=== PATIENT | female | born 1975 | race Caucasian/White ===

== ENCOUNTER 2018-02-23 19:44 | Inpatient (IN) | payer SELFPAY, BC ==
[2018-02-23] MEDS: MORPHINE 4 MG/ML 1ML VIAL/SYRINGE (J2270) IV (21:31)
[2018-02-23] MEDS: PANTOPRAZOLE 40MG INJ (PROTONIX) (C9113) IV (21:31)
[2018-02-23] MEDS: MULTIVITAMIN -ADULT INJECTION 10 ML, THIAMINE INJection 100 MG, FOLIC ACID 1 MG in NS 1... IV (22:05)
[2018-02-23 22:11] LABS: BASO # 0.1 10^3/uL (0.0-0.2); BASO % 0.6 % (0.0-1.0); EOS # 0.1 10^3/uL (0.0-0.50); EOS % 0.5 % (0.0-3.0); HEMATOCRIT 40.1 % (36.0-47.0); HEMOGLOBIN 14.6 g/dl (12.0-15.5); IMMATURE GRANULOCYTE % 0.6 % (0-3.0); LYMPH # 1.5 10^3/uL (1.5-4.5); LYMPH % 13.6 % (24.0-44.0); MEAN CORPUSCULAR HEMOGLOBIN 31.4 pg (27.0-33.0); MEAN CORPUSCULAR HGB CONC 36.4 g/dl (32.0-36.5); MEAN CORPUSCULAR VOLUME 86.2 fl (80.0-96.0); MONO # 1.4 10^3/uL (0.0-0.8); MONO % 12.2 % (0.0-5.0); NEUTROPHILS % 72.5 % (36.0-66.0); PLATELET COUNT, AUTOMATED 167 10^3/uL (150-450); RED BLOOD COUNT 4.65 10^6/uL (4.00-5.40); RED CELL DISTRIBUTION WIDTH 11.5 % (11.5-14.5); WHITE BLOOD COUNT 11.1 10^3/uL (4.0-10.0)
[2018-02-23 22:42] LABS: AMMONIA 42 uMOL/L (<32)
[2018-02-23 22:46] LABS: ALBUMIN 3.7 GM/DL (3.2-5.2); ALBUMIN/GLOBULIN RATIO 1.16 (1.00-1.93); ALKALINE PHOSPHATASE 156 U/L (45-117); ALT/SGPT 183 U/L (12-78); ANION GAP 24 MEQ/L (8-16); AST/SGOT 249 U/L (7-37); BILIRUBIN,DIRECT 1.3 MG/DL (0.0-0.2); BILIRUBIN,TOTAL 2.5 MG/DL (0.2-1.0); BLOOD UREA NITROGEN 27 MG/DL (7-18); CALCIUM LEVEL 8.6 MG/DL (8.5-10.1); CARBON DIOXIDE LEVEL 19 MEQ/L (21-32); CHLORIDE LEVEL 83 MEQ/L (98-107); CREATININE FOR GFR 1.24 MG/DL (0.55-1.30); ETHYL ALCOHOL (ETHANOL) 0.013 % (0.000-0.010); GLOMERULAR FILTRATION RATE 50.3 (>58); GLUCOSE, FASTING 112 MG/DL (70-100); LIPASE 4681 U/L (73-393); POTASSIUM SERUM 2.3 MEQ/L (3.5-5.1); SODIUM LEVEL 126 MEQ/L (136-145); TOTAL PROTEIN 6.9 GM/DL (6.4-8.2)
[2018-02-23] MEDS: POTASSIUM CHLORIDE 10 MEQ SR TABLET PO (23:16)
[2018-02-23] MEDS: MORPHINE 10 MG/ML 1ML VIAL (J2270) IV (23:16)
[2018-02-24] MEDS ORDERED: LORazepam 2 MG TAB PO (01:00)
[2018-02-24] MEDS ORDERED: NS 1,000 ML IV (01:00)
[2018-02-24] MEDS ORDERED: ONDANSETRON 4MG/2ML VIAL (J2405) IV (01:00)
[2018-02-24] MEDS: KCL 10MEQ/100ML SWI (KRUN) 10 MEQ in APPROPRIATE DILUENT 1 EA IV ×2 (01:13→02:26)
[2018-02-24] MEDS: POTASSIUM CHLORIDE 10 MEQ SR TABLET PO ×2 (01:21→02:56)
[2018-02-24] MEDS ORDERED: POTASSIUM CHLORIDE 10 MEQ SR TABLET PO (02:00)
[2018-02-24 02:03] LABS: LACTIC ACID SEPSIS PROTOCOL 0.9 MMOL/L (0.4-2.0)
[2018-02-24] MEDS: NS 1,500 ML IV (03:27)
[2018-02-24] MEDS: MORPHINE 4 MG/ML 1ML VIAL/SYRINGE (J2270) IV ×4 (03:28→21:30)
[2018-02-24 07:00] LABS: HEMATOCRIT 38.6 % (36.0-47.0); MEAN CORPUSCULAR HEMOGLOBIN 31.7 pg (27.0-33.0); MEAN CORPUSCULAR HGB CONC 36.3 g/dl (32.0-36.5); MEAN CORPUSCULAR VOLUME 87.3 fl (80.0-96.0); PLATELET COUNT, AUTOMATED 173 10^3/uL (150-450); RED BLOOD COUNT 4.42 10^6/uL (4.00-5.40); RED CELL DISTRIBUTION WIDTH 11.8 % (11.5-14.5); WHITE BLOOD COUNT 11.7 10^3/uL (4.0-10.0)
[2018-02-24 07:22] LABS: ALBUMIN 3.5 GM/DL (3.2-5.2); ALBUMIN/GLOBULIN RATIO 1.06 (1.00-1.93); ALKALINE PHOSPHATASE 138 U/L (45-117); ALT/SGPT 155 U/L (12-78); ANION GAP 12 MEQ/L (8-16); AST/SGOT 193 U/L (7-37); BILIRUBIN,TOTAL 2.4 MG/DL (0.2-1.0); BLOOD UREA NITROGEN 24 MG/DL (7-18); CALCIUM LEVEL 8.1 MG/DL (8.5-10.1); CARBON DIOXIDE LEVEL 24 MEQ/L (21-32); CHLORIDE LEVEL 92 MEQ/L (98-107); CHOLESTEROL LEVEL 168 MG/DL (<200); CHOLESTEROL RISK RATIO 2.545 (<5); CREATININE FOR GFR 1.16 MG/DL (0.55-1.30); GLOMERULAR FILTRATION RATE 54.3 (>58); GLUCOSE, FASTING 96 MG/DL (70-100); HDL CHOLESTEROL 66 MG/DL (>40); LDL CHOLESTEROL 88.4 MG/DL (<100); MAGNESIUM LEVEL 1.8 MG/DL (1.8-2.4); NON-HDL-C 102 MG/DL; PHOSPHORUS LEVEL 2.4 MG/DL (2.5-4.9); POTASSIUM SERUM 4.3 MEQ/L (3.5-5.1); SODIUM LEVEL 128 MEQ/L (136-145); TOTAL PROTEIN 6.8 GM/DL (6.4-8.2); TRIGLYCERIDES LEVEL 68 MG/DL (<150)
[2018-02-24] MEDS ORDERED: FOLIC ACID 1 MG TAB PO (09:00)
[2018-02-24] MEDS ORDERED: THIAMINE 100 MG TAB PO (09:00)
[2018-02-24] MEDS ORDERED: NADOLOL 20MG TABLET PO (09:00)
[2018-02-24] MEDS: PANTOPRAZOLE 40MG TAB (PROTONIX) PO (09:37)
[2018-02-24] MEDS: hydrOXYzine 25 MG TAB PO (09:37)
[2018-02-24] MEDS: MULTIVITAMIN -ADULT INJECTION 10 ML, THIAMINE INJection 100 MG, FOLIC ACID 1 MG in NS 1... IV (10:54)
[2018-02-24 16:47] LABS: ALBUMIN 3.6 GM/DL (3.2-5.2); ALBUMIN/GLOBULIN RATIO 1.29 (1.00-1.93); ALKALINE PHOSPHATASE 137 U/L (45-117); ALT/SGPT 144 U/L (12-78); ANION GAP 14 MEQ/L (8-16); AST/SGOT 175 U/L (7-37); BILIRUBIN,TOTAL 2.3 MG/DL (0.2-1.0); BLOOD UREA NITROGEN 21 MG/DL (7-18); CALCIUM LEVEL 8.4 MG/DL (8.5-10.1); CARBON DIOXIDE LEVEL 23 MEQ/L (21-32); CHLORIDE LEVEL 95 MEQ/L (98-107); GLOMERULAR FILTRATION RATE > 60.0 (>58); GLUCOSE, FASTING 95 MG/DL (70-100); POTASSIUM SERUM 3.9 MEQ/L (3.5-5.1); SODIUM LEVEL 132 MEQ/L (136-145); TOTAL PROTEIN 6.4 GM/DL (6.4-8.2)
[2018-02-24] MEDS: BISACODYL 5 MG TAB PO (18:13)
[2018-02-24 23:23] LABS: ALBUMIN 3.1 GM/DL (3.2-5.2); ALBUMIN/GLOBULIN RATIO 0.97 (1.00-1.93); ALKALINE PHOSPHATASE 139 U/L (45-117); ALT/SGPT 127 U/L (12-78); ANION GAP 13 MEQ/L (8-16); AST/SGOT 160 U/L (7-37); BILIRUBIN,TOTAL 2.1 MG/DL (0.2-1.0); BLOOD UREA NITROGEN 17 MG/DL (7-18); CARBON DIOXIDE LEVEL 20 MEQ/L (21-32); CHLORIDE LEVEL 98 MEQ/L (98-107); CREATININE FOR GFR 0.91 MG/DL (0.55-1.30); GLOMERULAR FILTRATION RATE > 60.0 (>58); GLUCOSE, FASTING 125 MG/DL (70-100); POTASSIUM SERUM 3.3 MEQ/L (3.5-5.1); SODIUM LEVEL 131 MEQ/L (136-145); TOTAL PROTEIN 6.3 GM/DL (6.4-8.2)
[2018-02-25 05:10] LABS: HEMATOCRIT 35.3 % (36.0-47.0); HEMOGLOBIN 12.3 g/dl (12.0-15.5); MEAN CORPUSCULAR HEMOGLOBIN 30.9 pg (27.0-33.0); MEAN CORPUSCULAR HGB CONC 34.8 g/dl (32.0-36.5); MEAN CORPUSCULAR VOLUME 88.7 fl (80.0-96.0); RED BLOOD COUNT 3.98 10^6/uL (4.00-5.40); RED CELL DISTRIBUTION WIDTH 11.7 % (11.5-14.5); WHITE BLOOD COUNT 7.4 10^3/uL (4.0-10.0)
[2018-02-25 05:24] LABS: ALBUMIN 3.2 GM/DL (3.2-5.2); ALKALINE PHOSPHATASE 128 U/L (45-117); ALT/SGPT 118 U/L (12-78); ANION GAP 9 MEQ/L (8-16); AST/SGOT 133 U/L (7-37); BILIRUBIN,TOTAL 1.9 MG/DL (0.2-1.0); BLOOD UREA NITROGEN 15 MG/DL (7-18); CALCIUM LEVEL 8.2 MG/DL (8.5-10.1); CARBON DIOXIDE LEVEL 26 MEQ/L (21-32); CHLORIDE LEVEL 97 MEQ/L (98-107); CREATININE FOR GFR 0.86 MG/DL (0.55-1.30); GLOMERULAR FILTRATION RATE > 60.0 (>58); GLUCOSE, FASTING 96 MG/DL (70-100); SODIUM LEVEL 132 MEQ/L (136-145); TOTAL PROTEIN 6.1 GM/DL (6.4-8.2)
[2018-02-25 06:00] LABS: IMMATURE PLATELET FRACTION % 3.2 % (0.0-9.6); PLATELET COUNT, AUTOMATED 77 10^3/uL (150-450)
[2018-02-25 07:21] LABS: INR 1.17; PROTHROMBIN TIME 15.1 SECONDS (12.1-14.4)
[2018-02-25] MEDS: MULTIVITAMINS/MINERALS THERAP 1 TAB PO (10:10)
[2018-02-25] MEDS: PANTOPRAZOLE 40MG TAB (PROTONIX) PO (10:10)
[2018-02-25] MEDS: hydrOXYzine 25 MG TAB PO (10:10)
== END 2018-02-25 12:29 | disposition home or self-care (01) | DRG 282 ==
LOC: M ED INP 02-24 00:59 → M PCU 02-24 00:59 → M ED 19:44
DX: K85.20 Alcohol induced acute pancreatitis without necrosis or infection (principal); F41.9 Anxiety disorder, unspecified; F10.10 Alcohol abuse, uncomplicated; K21.9 Gastro-esophageal reflux disease without esophagitis; Z79.899 Other long term (current) drug therapy

== ENCOUNTER 2018-04-10 20:37 | Emergency (ER) | payer SELFPAY ==
[2018-04-10] MEDS: MORPHINE 2 MG/ML 1ML SYRINGE (J2270) IV (22:40)
[2018-04-10] MEDS: NS 500 ML IV (22:40)
[2018-04-10] MEDS: ONDANSETRON 4MG/2ML VIAL (J2405) IV (22:40)
[2018-04-10 23:02] LABS: BASO # 0.1 10^3/uL (0.0-0.2); BASO % 0.7 % (0.0-1.0); EOS # 0.1 10^3/uL (0.0-0.50); EOS % 1.2 % (0.0-3.0); HEMATOCRIT 33.7 % (36.0-47.0); HEMOGLOBIN 11.6 g/dl (12.0-15.5); IMMATURE GRANULOCYTE % 0.4 % (0-3.0); LYMPH # 1.9 10^3/uL (1.5-4.5); LYMPH % 21.8 % (24.0-44.0); MEAN CORPUSCULAR HEMOGLOBIN 31.6 pg (27.0-33.0); MEAN CORPUSCULAR HGB CONC 34.4 g/dl (32.0-36.5); MEAN CORPUSCULAR VOLUME 91.8 fl (80.0-96.0); MONO # 0.6 10^3/uL (0.0-0.8); MONO % 6.8 % (0.0-5.0); NEUTROPHILS # 5.9 10^3/uL (1.8-7.7); NEUTROPHILS % 69.1 % (36.0-66.0); PLATELET COUNT, AUTOMATED 107 10^3/uL (150-450); RED BLOOD COUNT 3.67 10^6/uL (4.00-5.40); RED CELL DISTRIBUTION WIDTH 13.4 % (11.5-14.5); WHITE BLOOD COUNT 8.5 10^3/uL (4.0-10.0)
[2018-04-10 23:22] LABS: PROTHROMBIN TIME 14.4 SECONDS (12.1-14.4)
[2018-04-10 23:23] LABS: PARTIAL THROMBOPLASTIN TIME 32.1 SECONDS (25.4-37.6)
[2018-04-10 23:27] LABS: CONTROL LINE HCG INT CTR LINE PRESENT; HCG, SERUM QUALITATIVE NEGATIVE (NEGATIVE)
[2018-04-10 23:30] LABS: LACTIC ACID SEPSIS PROTOCOL 3.7 MMOL/L (0.4-2.0)
[2018-04-10 23:30] LABS: ALBUMIN 3.2 GM/DL (3.2-5.2); ALBUMIN/GLOBULIN RATIO 0.91 (1.00-1.93); ALKALINE PHOSPHATASE 143 U/L (45-117); ALT/SGPT 98 U/L (12-78); ANION GAP 15 MEQ/L (8-16); AST/SGOT 216 U/L (7-37); BILIRUBIN,DIRECT 0.9 MG/DL (0.0-0.2); BILIRUBIN,TOTAL 1.3 MG/DL (0.2-1.0); BLOOD UREA NITROGEN 8 MG/DL (7-18); CARBON DIOXIDE LEVEL 26 MEQ/L (21-32); CHLORIDE LEVEL 103 MEQ/L (98-107); CPK CREATINE PHOSPHOKINASE 231 U/L (26-192); CREATININE FOR GFR 0.64 MG/DL (0.55-1.30); ETHYL ALCOHOL (ETHANOL) 0.252 % (0.000-0.010); GLOMERULAR FILTRATION RATE > 60.0 (>58); GLUCOSE, FASTING 92 MG/DL (70-100); LIPASE 83 U/L (73-393); MB/CK RELATIVE INDEX 0.78 (< OR =4); POTASSIUM SERUM 2.5 MEQ/L (3.5-5.1); SODIUM LEVEL 144 MEQ/L (136-145); TOTAL PROTEIN 6.7 GM/DL (6.4-8.2); TROPONIN I < 0.02 NG/ML (< 0.10)
[2018-04-10 23:48] LABS: MAGNESIUM LEVEL 1.6 MG/DL (1.8-2.4)
[2018-04-11] MEDS: POTASSIUM CHLORIDE 10 MEQ SR TABLET PO (00:18)
[2018-04-11] MEDS: MAG SULF 1GM/100ML (MAG RUN) 1 GM in APPROPRIATE DILUENT 1 EA IV (00:19)
[2018-04-11 01:04] LABS: AMPHETAMINES LEVEL URINE NEGATIVE (NEGATIVE); BARBITURATES URINE NEGATIVE (NEGATIVE); BENZODIAZEPINES URINE NEGATIVE (NEGATIVE); CANNABINOIDS URINE NEGATIVE (NEGATIVE); COCAINE METABOLITE URINE NEGATIVE (NEGATIVE); METHADONE URINE NEGATIVE (NEGATIVE); OPIATES URINE POSITIVE (NEGATIVE); PHENCYCLIDINE URINE NEGATIVE (NEGATIVE)
[2018-04-11] MEDS: POTASSIUM CHLORIDE 10% LIQ 20 MEQ/15 ML UDC PO (01:07)
[2018-04-11] MEDS: PROMETHAZINE INJ 25 MG/ML VIAL (J2550) IV (01:39)
== END 2018-04-11 02:25 | disposition home or self-care (01) ==
LOC: M ED 20:37
DX: F10.120 Alcohol abuse with intoxication, uncomplicated (principal); K70.10 Alcoholic hepatitis without ascites; S20.212A Contusion of left front wall of thorax, initial encounter; W54.1XXA Struck by dog, initial encounter; Y92.098 Other place in other non-institutional residence as the place of occurrence of the external cause; K70.30 Alcoholic cirrhosis of liver without ascites; I85.10 Secondary esophageal varices without bleeding; Z88.6 Allergy status to analgesic agent; Z79.899 Other long term (current) drug therapy
CPT/HCPCS: J2405

== ENCOUNTER 2018-12-16 15:13 | Inpatient (IN) | payer BC, SELFPAY ==
[~2018-12-16] VITALS: Ht 157.5 cm; Wt 58.6 kg
[~2018-12-16 15:13] MED LIST: FOLI1TAB11 PO; FURO40TA2 PO; HYDR-3363 PO; KLOR20TA42 PO; MULT1TAB18 PO; NADO20TA PO; OXYC15TA76 PO; PANT40TA3 PO; PROM25TA12 PO; SPIR100T3 PO; THIA100TA PO; XANA0.25 PO; ZOFR4TAB14 PO
[2018-12-16] MEDS ORDERED: DULC5TAB PO (15:55)
[2018-12-16] MEDS ORDERED: SERT25TA88 PO (15:55)
[2018-12-16 16:38] LABS: HEMATOCRIT 32.4 % (36.0-47.0); HEMOGLOBIN 12.1 g/dl (12.0-15.5); MEAN CORPUSCULAR HEMOGLOBIN 33.9 pg (27.0-33.0); MEAN CORPUSCULAR VOLUME 90.8 fl (80.0-96.0); PLATELET COUNT, AUTOMATED 120 10^3/uL (150-450); RED BLOOD COUNT 3.57 10^6/uL (4.00-5.40); WHITE BLOOD COUNT 7.5 10^3/uL (4.0-10.0)
[2018-12-16] MEDS ORDERED: FOLIC ACID IV ONE ×5 (16:45)
[2018-12-16] MEDS ORDERED: THIAMINE IV ONE ×5 (16:45)
[2018-12-16] MEDS ORDERED: MULTIVITAMIN ADULT IV ONE ×5 (16:45)
[2018-12-16] MEDS ORDERED: [UNRECOGNIZED DRUG - OTHER] IV ONE ×5 (16:45)
[2018-12-16 16:57] LABS: INR 1.53; PROTHROMBIN TIME 18.1 SECONDS (11.8-14.0)
[2018-12-16 16:58] LABS: PARTIAL THROMBOPLASTIN TIME 35.4 SECONDS (25.0-38.4)
[2018-12-16 17:09] LABS: AMPHETAMINES LEVEL URINE NEGATIVE (NEGATIVE); BARBITURATES URINE NEGATIVE (NEGATIVE); BENZODIAZEPINES URINE NEGATIVE (NEGATIVE); CANNABINOIDS URINE NEGATIVE (NEGATIVE); COCAINE METABOLITE URINE NEGATIVE (NEGATIVE); METHADONE URINE NEGATIVE (NEGATIVE); OPIATES URINE NEGATIVE (NEGATIVE); PHENCYCLIDINE URINE NEGATIVE (NEGATIVE)
[2018-12-16 17:10] LABS: HCG, SERUM QUALITATIVE NEGATIVE (NEGATIVE)
[2018-12-16 17:22] LABS: ACETAMINOPHEN LEVEL < 2.0 UG/ML (10.0-30.0); ALT/SGPT 76 U/L (12-78); BILIRUBIN,DIRECT 12.4 MG/DL (0.0-0.2); BILIRUBIN,TOTAL 16.7 MG/DL (0.2-1.0); BLOOD UREA NITROGEN 11 MG/DL (7-18); CALCIUM LEVEL 8.8 MG/DL (8.5-10.1); CARBON DIOXIDE LEVEL 26 MEQ/L (21-32); CHLORIDE LEVEL 90 MEQ/L (98-107); CREATININE FOR GFR 1.03 MG/DL (0.55-1.30); ETHYL ALCOHOL (ETHANOL) 0.003 % (0.000-0.010); GLOMERULAR FILTRATION RATE > 60.0 (>58); GLUCOSE, FASTING 195 MG/DL (70-100); LIPASE 860 U/L (73-393); POTASSIUM SERUM 1.8 MEQ/L (3.5-5.1); SALICYLATE LEVEL < 1.7 MG/DL (5.0-30.0); SODIUM LEVEL 129 MEQ/L (136-145)
[2018-12-16 17:26] LABS: MEAN CORPUSCULAR HGB CONC 37.3 g/dl (32.0-36.5)
[2018-12-16] MEDS ORDERED: POTASSIUM CHLORIDE 10% LIQ 20 MEQ/15 ML UDC PO ONE ×2 (17:30→22:00)
[2018-12-16] MEDS ORDERED: KCL 10MEQ/100ML SWI (KRUN) 10 MEQ in APPROPRIATE DILUENT 1 EA IV ONE (17:30)
[2018-12-16] MEDS ORDERED: POTA10PO PO (17:54)
[2018-12-16] MEDS ORDERED: FURO20TA2 PO (17:54)
[2018-12-16] MEDS ORDERED: HYDR1CAP25 PO (17:54)
[2018-12-16] MEDS ORDERED: FLON1SPR (17:54)
[2018-12-16] MEDS ORDERED: LACTULOSE 20 GM/30 ML SYRUP UD PO ONE (18:30)
--- NOTE | 2018-12-16 19:17 | REP ---
Portable chest, 06:59 p.m., single AP view with the patient upright: Comparison is 04/10/2018. The lung gillette are clear. The cardiac size is normal. The maribeth, mediastinum, and skeletal structures are unremarkable. Impression: Negative portable chest. Electronically Signed by Marvin Greene MD 12/16/2018 07:09 P
[2018-12-16] MEDS ORDERED: FLUTICASONE PROP 0.05% NASAL SPRAY 16 GM (FLONASE) PRN (19:45)
[2018-12-16] MEDS ORDERED: ALPRAZolam 0.25 MG TAB PO PRN (19:45)
[2018-12-16] MEDS ORDERED: BISACODYL 5 MG TAB PO PRN (19:45)
[2018-12-16] MEDS ORDERED: LACTULOSE 20 GM/30 ML SYRUP UD PR ONE (19:45)
[2018-12-16] MEDS: NS 1,000 ML IV SCH (19:53)
[2018-12-16 20:12] LABS: MAGNESIUM LEVEL 1.6 MG/DL (1.8-2.4)
--- NOTE | 2018-12-16 20:16 | HPEPDOC ---
[facility] Medical History & Physical Date of Admission Dec 16, 2018 Date of Service: Dec 16, 2018 History and Physical PCP: Ameena provider CHIEF COMPLAINT: Change in mentation HISTORY OF PRESENT ILLNESS: Patient is a 43-year-old female with known history of alcohol abuse she has been attempting to wean herself from alcohol over the last several days but was becoming confused and was brought into the emergency room by family secondary to the concern for her confusion. At the time of my exam the patient is awake she is oriented to person sheis in the hospital she can tell me the day of the week the month but not the year. She is quite slow to respond and unable to provide much of the history and as such much of it is obtained from the ER provider reviewed the medical record in addition to speaking directly with the patient. Patient denies any pain but does complain of feeling groggy weak and tired. She doesn't her last drink was yesterday. She doesn't she drinks one bottle of alcohol per day vodka.. Otherwise patient denies weight loss, hair loss, headache, visual changes, chest pain, shortness of breath, cough, nausea, vomiting, diarrhea, abdominal pain, muscle aches, worsening arthritis, change in mood PAST MEDICAL HISTORY: 1. Alcoholic liver cirrhosis. 2. Gastroesophageal reflux disease. 3. Hypertension 4. Esophageal varices 5. Anxiety. HOME MEDICATIONS: Please see below. ALLERGIES: Please see below PAST SURGICAL HISTORY: 1. Tummy tuck. 2. breast implants. SOCIAL HISTORY: Lives with: Unable to inform me, Employment: That he currently working, Tobacco use: Denies. ETOH: Long history of alcohol abuse has reportedly been clean for many years at some points but recently did fall off the wan once again, Illicit drug use: Denies, Tattoos done unprofessionally: Denies, CODE STATUS: Full code FAMILY HISTORY:Reviewed and noncontributory REVIEW OF SYSTEMS: 10 systems reviewed and negative other than HPI PHYSICAL EXAMINATION: VITAL SIGNS: Temperature 99.6, pulse 90, respiratory rate 18, blood pressure 115/70, pulse oximetry 97% on room air. GENERAL: Fatigued middle-age female lying flat in a stretcher visibly jaundiced slow to respond awake but stutters answers no acute distress HEENT: Dry mucous membranes no elevation and CVP, obvious scleral icterus CARDIOVASCULAR: S1 S2 regular no additional heart sounds appreciated. RESPIRATORY: Clear to auscultation bilaterally. ABDOMINAL: Bowel sounds present abdomen soft and [place] present EXTREMITIES: No clubbing cyanosis or edema, clear asterixis NEUROLOGICAL: Spontaneously moves all 4 extremities cranial 2 through 12 grossly intact no gross focal deficits appreciated PSYCHOLOGICAL: Flat affect, psychomotor retardation LABORATORY DATA: See below. MICROBIOLOGY: Please see below. IMAGING: Chest x-ray:Negative portable chest. ASSESSMENT & PLAN: This is a 43-year-old female with hepatic encephalopathy in the setting of alcoholic liver cirrhosis. PROBLEMS: 1. Acute hepatic encephalopathy: Patient is slow fatigued and appears encephalopathic was clear asterixis and an elevated ammonia level in the setting of acute on chronic liver failure. I'll provide her with a lactulose enema 1 now we'll begin her on by mouth lactulose every 6 hours titrate for 4-5 bowel movements per day. Monitor mental status closely in the progressive care unit with every 4 neuro checks. 2. Alcoholic liver cirrhosis: Meld score 27 indicating 19.6% 3 month mortality, function 42-1/2 months his prognosis indicating poor. I will start her on prednisone 40 mg daily for 28 day course, continued on atenolol with holding parameters lactulose as outlined above. Spironolactone with holding parameter. We will hold her Lasix given to her hypokalemia and hyponatremia and dry mucous membranes. Was previously on transfer list not a candidate secondary to active alcohol abuse 3. Alcohol abuse: She is on when necessary Xanax which we'll continue with the hold for sedation as well as hydroxyzine we have placed the same parameter. W e'll begin her on folate and thiamine and multivitamin by mouth and is ordered her for [place] protocol. Monitor for withdrawal symptoms. Not a candidate for any transportation secondary to active alcohol use. As 4. Hypokalemia: Likely secondary to dehydration given her hypochloremia hyponatremia as well. Provided with gentle IV fluids check a magnesium level supplement potassium and magnesium as needed especially for providing her with aggressive lactulose therapy for hepatic encephalopathy. We'll check every 6 hours BMPs 5. Thrombocytopenia: Secondary to alcoholic liver cirrhosis 6. Elevated INR: Secondary to alcoholic liver cirrhosis 7. Gastroesophageal reflux disease: Continue with PPI 8. Anxiety: Continue with Xanax and hydroxyzine as needed as well as sertraline 9. Elevated lipase: Likely false-positive no signs or symptoms of acute pancreatitis no abdominal pain no nausea no vomiting her clinical history and physical exam are not suggestive of this. DVT PROPHYLAXIS: Heparin DISPOSITION: Progressive care unit admission prognosis is poor, consider advanced directives discussions with patient more awake and able to pancreatitis. Better and discussion Vital Signs Vital Signs Date Time Temp Pulse Resp B/P (MAP) Pulse Ox O2 Delivery O2 Flow Rate FiO2 12/16/18 19:30 83 16 107/63 (78) 99 Room Air 12/16/18 15:14 99.6 Laboratory Data Labs 24H Laboratory Tests 2 12/16/18 16:13: Urine Amphetamines Screen NEGATIVE, Urine Benzodiazepines Screen NEGATIVE, Urine Opiates Screen NEGATIVE, Urine Methadone Screen NEGATIVE, Urine Barbiturates Screen NEGATIVE, Urine Phencyclidine Screen NEGATIVE, Urine Cocaine Metabolite Screen NEGATIVE, Urine Cannabinoids Screen NEGATIVE 12/16/18 16:26: Nucleated Red Blood Cells % (auto) 0.0, Prothrombin Time 18.1H, Prothromb Time International Ratio 1.53, Activated Partial Thromboplast Time 35.4, Anion Gap 13, Glomerular Filtration Rate > 60.0, Calcium Level 8.8, Aspartate Amino Transf (AST/SGOT) 220H, Alanine Aminotransferase (ALT/SGPT) 76, Alkaline Phosphatase 246H, Total Bilirubin 16.7*H, Direct Bilirubin 12.4H, Ammonia 170H, Total Protein 7.0, Albumin 3.0L, Albumin/Globulin Ratio 0.75L, Lipase 860H, Thyroid Stimulating Hormone (TSH) 1.220, Human Chorionic Gonadotropin, Qual NEGATIVE, Salicylates Level < 1.7L, Acetaminophen Level < 2.0L, Ethyl Alcohol Level 0.003 CBC/BMP Laboratory Tests 12/16/18 16:26 Red Blood Count 3.57 L, Mean Corpuscular Volume 90.8, Mean Corpuscular Hemoglobin 33.9 H, Mean Corpuscular Hemoglobin Concent 37.3 H, Red Cell Distribution Width 15.6 H Home Medications Scheduled Furosemide (Furosemide) 20 Mg Tablet, 20 MG PO TID Hydroxyzine Pamoate (Hydroxyzine Pamoate) 25 Mg Capsule, 25 MG PO QHS Nadolol (Nadolol) 20 Mg Tab, 20 MG PO DAILY Pantoprazole Sodium (Pantoprazole Sodium) 40 Mg Tab, 40 MG PO DAILY Potassium Chloride (Potassium Chloride Powder) 20 Meq Packet, 20 MEQ PO DAILY Sertraline HCl (Sertraline HCl) 25 Mg Tablet, 25 MG PO DAILY Spironolactone (Spironolactone) 100 Mg Tab, 100 MG PO BID Scheduled PRN Alprazolam (Xanax) 0.25 Mg Tab, 0.25 MG PO TID PRN for ANXIETY Bisacodyl (Dulcolax) 5 Mg Tablet.dr, 5 MG PO BID PRN for CONSTIPATION Fluticasone Propionate (Flonase Allergy Relief) 9.9 Ml [place].susp, 2 SPRAY NA DAILY PRN for ALLERIGES Allergies Coded Allergies: acetaminophen (Verified Adverse Reaction, Unknown, vomit, 12/16/18) A-FIB/CHADSVASC A-FIB History Current/History of A-Fib/PAF?: No FABIANA MATHUR MD Dec 16, 2018 20:16
[2018-12-16] MEDS: predniSONE 20 MG TAB PO SCH (20:57)
[2018-12-16] MEDS ORDERED: SPIRONOLACTONE 50 MG TAB PO SCH (21:00)
[2018-12-16] MEDS: hydrOXYzine 25 MG TAB PO SCH ×2 (21:00→22:29)
[2018-12-16] MEDS: LACTULOSE 20 GM/30 ML SYRUP UD PO SCH (21:15)
[2018-12-16] MEDS: HEPARIN SOD (PORCINE) 5000 UNITS/ML VIAL SC SCH (21:20)
--- NOTE | 2018-12-16 21:48 | ECGEPIP ---
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
[2018-12-16 22:29] LABS: OSMOLALITY URINE 279 MOSM/KG (500-800)
[2018-12-16 22:42] LABS: CREATININE,RANDOM URINE < 13.0 MG/DL; SODIUM,RANDOM URINE 112 MEQ/L
[2018-12-16 23:00] VITALS: BP 97/75
[2018-12-16 23:25] LABS: CALCIUM LEVEL 8.4 MG/DL (8.5-10.1); CREATININE FOR GFR 1.11 MG/DL (0.55-1.30); GLOMERULAR FILTRATION RATE 56.8 (>58); POTASSIUM SERUM 2.8 MEQ/L (3.5-5.1)
[2018-12-17] VITALS (8 sets, daily range): BP systolic 99–119; BP diastolic 51–75
[2018-12-17] MEDS ORDERED: MAG SULF 1GM/100ML (MAG RUN) 1 GM in APPROPRIATE DILUENT 1 EA IV ONE ×4
[2018-12-17] MEDS ORDERED: POTASSIUM CHLORIDE 10 MEQ SR TABLET PO ONE
[2018-12-17 00:11] LABS: ABG BASE EXCESS -3.2 (-2.0-2.0); ABG HCO3 20.2 MEQ/L (22.0-26.0); ABG O2 SATURATION 90.3 % (95.0-99.0); ABG PARTIAL PRESSURE CO2 31.2 mmHg (35.0-45.0); ABG PARTIAL PRESSURE O2 64.9 mmHg (75.0-100.0); ABG STANDARD HCO3 21.7 MEQ/L (22.0-26.0); ABG TOTAL CO2 21.2 MEQ/L (22.0-29.0)
[2018-12-17] MEDS ORDERED: LACTULOSE 20 GM/30 ML SYRUP UD PO ONE (00:30)
[2018-12-17] MEDS: LACTULOSE 20 GM/30 ML SYRUP UD PO SCH ×5 (04:05→21:01)
[2018-12-17 04:56] LABS: HEMATOCRIT 30.2 % (36.0-47.0); MEAN CORPUSCULAR HEMOGLOBIN 33.8 pg (27.0-33.0); MEAN CORPUSCULAR HGB CONC 36.4 g/dl (32.0-36.5); MEAN CORPUSCULAR VOLUME 92.9 fl (80.0-96.0); RED BLOOD COUNT 3.25 10^6/uL (4.00-5.40); WHITE BLOOD COUNT 4.7 10^3/uL (4.0-10.0)
[2018-12-17 05:21] LABS: PLATELET COUNT, AUTOMATED 75 10^3/uL (150-450)
[2018-12-17 05:24] LABS: ALBUMIN 2.6 GM/DL (3.2-5.2); ALT/SGPT 66 U/L (12-78); BILIRUBIN,TOTAL 14.3 MG/DL (0.2-1.0); BLOOD UREA NITROGEN 9 MG/DL (7-18); CALCIUM LEVEL 8.6 MG/DL (8.5-10.1); CARBON DIOXIDE LEVEL 24 MEQ/L (21-32); CHLORIDE LEVEL 102 MEQ/L (98-107); CREATININE FOR GFR 1.03 MG/DL (0.55-1.30); GLOMERULAR FILTRATION RATE > 60.0 (>58); GLUCOSE, FASTING 190 MG/DL (70-100); POTASSIUM SERUM 3.2 MEQ/L (3.5-5.1); SODIUM LEVEL 135 MEQ/L (136-145); TOTAL PROTEIN 6.4 GM/DL (6.4-8.2)
--- NOTE | 2018-12-17 07:22 | IPNPDOC ---
Text Note Date of Service The patient was seen on 12/17/18. NOTE Pt was seen and examined at bedside. Pt is awake and alert now. Mental status significantly improved now. She is eating lunch with family member at bedside. Pt denies any respiratory distress, dizziness or lightheadedness. Pt reports difficulty concentration and thinking, she is also concerned about her liver medications and the course of her disease. PHE: GENERAL: awake alert and oriented , no acute distress HEENT: moderate icterus in sclera , no JVD, no trauma, neck is supple, no thyromegaly CARDIOVASCULAR: S1 S2 no murmur RESPIRATORY: good air entry, clear bilat ABDOMINAL: soft NT ND EXTREMITIES: asterixis present in upper extremities , no edema, no cyanosis NEUROLOGICAL: motor sensory grossly intact PSYCHOLOGICAL: mood affect appropriate Vital Signs Date Time Temp Pulse Resp B/P (MAP) Pulse Ox O2 Delivery O2 Flow Rate FiO2 12/17/18 16:00 2.0 12/17/18 12:00 97.8 83 82 114/63 (80) 100 2.0 12/17/18 12:00 2.0 12/17/18 12:00 82 114/63 12/17/18 08:00 2.0 12/17/18 08:00 97.5 75 60 103/60 (74) 100 2.0 12/17/18 06:00 81 101/51 12/17/18 04:00 2.0 100 12/17/18 04:00 98.0 82 16 99/54 (69) 100 2.0 12/17/18 04:00 98.0 82 16 99/54 (69) 100 2.0 12/17/18 00:00 97.3 74 16 106/56 (73) 100 2.0 12/17/18 00:00 97.8 75 16 106/56 (73) 100 2.0 12/17/18 00:00 75 106/56 12/16/18 23:00 90 97/75 12/16/18 22:34 97.5 12/16/18 22:29 83 16 105/64 (78) 100 Room Air 12/16/18 22:00 84 16 104/63 (77) 99 Room Air 12/16/18 21:45 82 16 101/56 (71) 98 Room Air 12/16/18 21:30 80 16 113/68 (83) 99 Room Air 12/16/18 21:07 85 16 112/76 (88) 100 Room Air 12/16/18 21:05 Room Air 12/16/18 21:00 87 16 110/71 (84) 100 Room Air 12/16/18 20:47 98.8 84 16 104/60 (75) 98 Room Air 12/16/18 20:27 95 16 101/56 (71) 98 Room Air 12/16/18 20:15 83 16 101/56 (71) 97 Room Air 12/16/18 20:00 81 16 100/56 (71) 97 Room Air 12/16/18 19:45 82 16 100/58 (72) 98 Room Air 12/16/18 19:30 83 16 107/63 (78) 99 Room Air 12/16/18 19:15 82 16 106/52 (70) 97 Room Air 12/16/18 19:01 88 16 128/67 (87) 98 Room Air 12/16/18 18:00 90 18 115/70 (85) 97 Room Air 12/16/18 17:45 87 18 111/66 (81) 98 Room Air 12/16/18 17:30 85 18 106/61 (76) 99 Room Air 12/16/18 17:15 81 18 113/64 (80) 99 Room Air 12/16/18 17:00 79 18 109/62 (78) 97 Room Air 12/16/18 16:45 81 18 114/73 (87) 98 Room Air Intake & Output 12/17/18 06:00 Intake Total 300 ml Output Total 1400 ml Balance -1100 ml Laboratory Tests 12/16/18 22:32: Blood Urea Nitrogen 10, Creatinine 1.11, Sodium Level 133L, Potassium Level 2.8#*L, Chloride Level 98, Carbon Dioxide Level 26, Calcium Level 8.4L, Anion Gap 9, Glomerular Filtration Rate 56.8L, Fasting Glucose 180H, Osmolality 277 12/16/18 23:46: Lactic Acid Level 2.4*H 12/16/18 23:56: Blood Gas Bicarbonate Standard 21.7L, Arterial Blood pH 7.430, Arterial Blood Partial Pressure CO2 31.2L, Arterial Blood Partial Pressure O2 64.9L, Arterial Blood Total CO2 21.2L, Arterial Blood HCO3 20.2L, Arterial Blood Base Excess - 3.2L, Arterial Blood Oxygen Saturation 90.3L 12/17/18 04:37: Blood Urea Nitrogen 9, Creatinine 1.03, Sodium Level 135L, Potassium Level 3.2L, Chloride Level 102, Carbon Dioxide Level 24, Calcium Level 8.6, Anion Gap 9, Glomerular Filtration Rate > 60.0, Fasting Glucose 190H, White Blood Count 4.7, Red Blood Count 3.25L, Hemoglobin 11.0L, Hematocrit 30.2L, Mean Corpuscular Volume 92.9, Mean Corpuscular Hemoglobin 33.8H, Mean Corpuscular Hemoglobin Concent 36.4, Red Cell Distribution Width 15.9H, Platelet Count 75L, Nucleated Red Blood Cells % (auto) 0.0, Immature Platelet Fraction 5.3, Aspartate Amino Transf (AST/SGOT) 178H, Alanine Aminotransferase (ALT/SGPT) 66, Alkaline Phosphatase 199H, Total Bilirubin 14.3H, Total Protein 6.4, Albumin 2.6L, Lactic Acid Followup at 4 Hours 1.5, Albumin/Globulin Ratio 0.68L 12/17/18 10:49: Blood Urea Nitrogen 9, Creatinine 1.25, Sodium Level 133L, Potassium Level 3.4L, Chloride Level 105, Carbon Dioxide Level 16L, Calcium Level 7.8L, Anion Gap 12, Glomerular Filtration Rate 49.6L, Fasting Glucose 370H Current Medications Medications (Trade) Dose Ordered Sig/Kishor Route PRN Reason Start Time Stop Time Status Last Admin Dose Admin Folic Acid (Folic Acid) 1 mg DAILY PO 12/17/18 09:00 12/17/18 08:09 1 MG Heparin Sodium (Porcine) (Heparin) 5,000 units Q12H SC 12/16/18 21:00 12/17/18 10:02 5,000 UNITS Lactulose (Cephulac) 30 ml Q6H PO 12/16/18 21:00 12/17/18 08:09 30 ML Multivitamins (Theragram-M) 1 tab DAILY PO 12/17/18 09:00 12/17/18 08:09 1 TAB Pantoprazole Sodium (Protonix) 40 mg DAILY PO 12/17/18 09:00 12/17/18 08:09 40 MG Potassium Chloride (K-Mone 20 Meq Powder Packet) 20 meq DAILY PO 12/17/18 09:00 12/17/18 08:09 20 MEQ Prednisone (Deltasone) 40 mg DAILY PO 12/16/18 20:00 12/17/18 08:09 40 MG Sertraline HCl (Zoloft) 25 mg DAILY PO 12/17/18 09:00 12/17/18 08:09 25 MG Sodium Chloride 1,000 ml @ 75 mls/hr [id number] IV 12/16/18 20:00 12/17/18 10:02 75 MLS/HR Thiamine HCl (Thiamine HCl) 100 mg DAILY PO 12/17/18 09:00 12/17/18 08:09 100 MG A/P 1-Hepatic Encephalopathy 2-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 Cont Lactulose prn adjust with frequency of BM as ordered Cont Steroids Cont Spironolactone Replace electrolytes Close clinical monitoring Decrease neurochecks every 6 hr Pt is not a candidate for liver transplantation due to current ETOH use. Mental Status has improved, will cont to monitor in ICU overnight possible transfer to regular floor in AM. CM/SW consult for ETOH program PT/OT evaluation and treatment VS,[place], I+O VS, [place], I+O Laboratory Tests 12/16/18 16:26 Red Blood Count 3.57 L, Mean Corpuscular Volume 90.8, Mean Corpuscular Hemogl obin 33.9 H, Mean Corpuscular Hemoglobin Concent 37.3 H, Red Cell Distribution Width 15.6 H 12/16/18 22:32 Calcium Level 8.4 L 12/17/18 04:37 Red Blood Count 3.25 L, Mean Corpuscular Volume 92.9, Mean Corpuscular Hemoglobin 33.8 H, Mean Corpuscular Hemoglobin Concent 36.4, Red Cell Distribution Width 15.9 H, Calcium Level 8.6, Aspartate Amino Transf (AST/SGOT) 178 H, Alanine Aminotransferase (ALT/SGPT) 66, Alkaline Phosphatase 199 H, Total Bilirubin 14.3 H, Total Protein 6.4, Albumin 2.6 L Vital Signs Date Time Temp Pulse Resp B/P (MAP) Pulse Ox O2 Delivery O2 Flow Rate FiO2 12/17/18 06:00 81 101/51 12/17/18 04:00 2.0 100 12/17/18 04:00 98.0 16 100 12/16/18 22:29 Room Air I&O- Last 24 Hours up to 6 AM 12/17/18 06:00 Intake Total 300 ml Output Total 1400 ml Balance -1100 ml MAGGIE RICE MD Dec 17, 2018 07:22
[2018-12-17] MEDS: SERTRALINE HCL 25 MG TABLET PO SCH (08:09)
[2018-12-17] MEDS: FOLIC ACID 1 MG TAB PO SCH (08:09)
[2018-12-17] MEDS: predniSONE 20 MG TAB PO SCH (08:09)
[2018-12-17] MEDS: MULTIVITAMINS/MINERALS THERAP 1 TAB PO SCH (08:09)
[2018-12-17] MEDS: PANTOPRAZOLE 40MG TAB (PROTONIX) PO SCH (08:09)
[2018-12-17] MEDS: THIAMINE 100 MG TAB PO SCH (08:09)
[2018-12-17] MEDS ORDERED: POTASSIUM CHL PWD 20 MEQ PACKET PO SCH (09:00)
[2018-12-17] MEDS ORDERED: NADOLOL 20MG TABLET PO SCH (09:00)
[2018-12-17] MEDS: HEPARIN SOD (PORCINE) 5000 UNITS/ML VIAL SC SCH ×2 (10:02→20:11)
[2018-12-17] MEDS: NS 1,000 ML IV SCH ×2 (10:02→22:52)
[2018-12-17 11:17] LABS: CALCIUM LEVEL 7.8 MG/DL (8.5-10.1); CREATININE FOR GFR 1.25 MG/DL (0.55-1.30); GLOMERULAR FILTRATION RATE 49.6 (>58); POTASSIUM SERUM 3.4 MEQ/L (3.5-5.1)
[2018-12-17] MEDS ORDERED: SODIUM BICARBONATE 8.4% INJ 50 ML SYRINGE IV STA (15:52)
[2018-12-17 17:15] LABS: CALCIUM LEVEL 8.3 MG/DL (8.5-10.1); CREATININE FOR GFR 1.24 MG/DL (0.55-1.30); POTASSIUM SERUM 2.9 MEQ/L (3.5-5.1)
[2018-12-17] MEDS: KCL 10MEQ/100ML SWI (KRUN) 10 MEQ in APPROPRIATE DILUENT 1 EA IV SCH ×4 (17:57→21:08)
[2018-12-17] MEDS ORDERED: OXAZEPAM 10 MG CAP PO PRN (23:30)
[2018-12-17 23:41] LABS: BLOOD UREA NITROGEN 7 MG/DL (7-18); CALCIUM LEVEL 8.1 MG/DL (8.5-10.1); CARBON DIOXIDE LEVEL 21 MEQ/L (21-32); CHLORIDE LEVEL 103 MEQ/L (98-107); CREATININE FOR GFR 0.98 MG/DL (0.55-1.30); GLOMERULAR FILTRATION RATE > 60.0 (>58); GLUCOSE, FASTING 237 MG/DL (70-100); POTASSIUM SERUM 3.4 MEQ/L (3.5-5.1); SODIUM LEVEL 132 MEQ/L (136-145)
[2018-12-18] VITALS: BP 123/67
[2018-12-18 04:00] VITALS: BP 114/60
[2018-12-18] MEDS: LACTULOSE 20 GM/30 ML SYRUP UD PO SCH ×3 (05:27→21:59)
[2018-12-18 05:58] LABS: ALBUMIN 2.3 GM/DL (3.2-5.2); ALT/SGPT 58 U/L (12-78); BILIRUBIN,TOTAL 13.2 MG/DL (0.2-1.0); BLOOD UREA NITROGEN 7 MG/DL (7-18); CALCIUM LEVEL 7.8 MG/DL (8.5-10.1); CARBON DIOXIDE LEVEL 18 MEQ/L (21-32); CHLORIDE LEVEL 105 MEQ/L (98-107); CREATININE FOR GFR 0.96 MG/DL (0.55-1.30); GLOMERULAR FILTRATION RATE > 60.0 (>58); GLUCOSE, FASTING 205 MG/DL (70-100); POTASSIUM SERUM 2.8 MEQ/L (3.5-5.1); SODIUM LEVEL 135 MEQ/L (136-145); TOTAL PROTEIN 5.8 GM/DL (6.4-8.2)
[2018-12-18 06:00] VITALS: BP 114/65
[2018-12-18] MEDS ORDERED: POTASSIUM CHLORIDE 10 MEQ SR TABLET PO ONE (06:00)
[2018-12-18 06:20] LABS: MAGNESIUM LEVEL 2.2 MG/DL (1.8-2.4)
[2018-12-18 07:26] VITALS: BP 131/72
[2018-12-18 08:18] LABS: HEMOGLOBIN 10.6 g/dl (12.0-15.5); MEAN CORPUSCULAR HEMOGLOBIN 33.1 pg (27.0-33.0); MEAN CORPUSCULAR HGB CONC 35.3 g/dl (32.0-36.5); MEAN CORPUSCULAR VOLUME 93.8 fl (80.0-96.0); PLATELET COUNT, AUTOMATED 101 10^3/uL (150-450); WHITE BLOOD COUNT 9.8 10^3/uL (4.0-10.0)
[2018-12-18] MEDS ORDERED: POTASSIUM CHLORIDE 10 MEQ SR TABLET PO SCH (09:00)
[2018-12-18] MEDS: predniSONE 20 MG TAB PO SCH (09:00)
[2018-12-18] MEDS ORDERED: MORPHINE 4 MG/ML 1ML VIAL/SYRINGE (J2270) IV ONE (09:30)
[2018-12-18] MEDS: KCL 10MEQ/100ML SWI (KRUN) 10 MEQ in APPROPRIATE DILUENT 1 EA IV SCH ×6 (10:48→23:19)
[2018-12-18] MEDS: HEPARIN SOD (PORCINE) 5000 UNITS/ML VIAL SC SCH ×2 (10:48→20:12)
[2018-12-18] MEDS: SERTRALINE HCL 25 MG TABLET PO SCH (10:50)
[2018-12-18] MEDS: FOLIC ACID 1 MG TAB PO SCH (10:50)
[2018-12-18] MEDS: MULTIVITAMINS/MINERALS THERAP 1 TAB PO SCH (10:50)
[2018-12-18] MEDS: THIAMINE 100 MG TAB PO SCH (10:50)
[2018-12-18] MEDS: PANTOPRAZOLE 40MG TAB (PROTONIX) PO SCH (10:51)
[2018-12-18 14:00] VITALS: BP 136/77
--- NOTE | 2018-12-18 15:10 | REP ---
Abdominal ultrasound for ascites evaluation : All four quadrants of the abdomen are evaluated. There is a trace of ascites in the right upper quadrant. The quantity of ascites is insufficient for percutaneous drainage. Electronically Signed by Marvin Greene MD 12/18/2018 03:02 P
--- NOTE | 2018-12-18 15:55 | IPNPDOC ---
Text Note Date of Service The patient was seen on 12/18/18. NOTE Pt was seen and examined in intensive care unit. Pt is awake alert and oriented. Pt mental status has significantly improved today. She does complain of insomnia, headache and generalized anxiety. She complains of abdominal discomfort due to ascites. Pt asks medical questions regarding her liver disease. Prior to hospitalization was following up with automation engineering technician in [place]. PHE: GENERAL: awake alert and oriented , mild discomfort due to ascites HEENT: moderate icterus in sclera , no JVD, no trauma, neck is supple, no thyromegaly CARDIOVASCULAR: S1 S2 no murmur RESPIRATORY: good air entry, clear bilat ABDOMINAL: soft moderately distended with shifting dullness, no stigmata of chronic liver disease EXTREMITIES: asterixis present in upper extremities , no edema, no cyanosis NEUROLOGICAL: motor sensory grossly intact PSYCHOLOGICAL: mood affect appropriate Vital Signs Date Time Temp Pulse Resp B/P (MAP) Pulse Ox O2 Delivery O2 Flow Rate FiO2 12/18/18 10:49 16 12/18/18 07:26 99.0 99 16 131/72 (91) 98 12/18/18 06:00 83 114/65 12/18/18 04:00 97.8 91 16 114/60 (78) 94 12/18/18 00:00 87 123/67 12/18/18 00:00 98.6 99 18 123/67 (85) 97 12/17/18 20:00 97.9 97 18 119/75 (90) 100 12/17/18 18:00 82 103/59 12/17/18 16:00 2.0 Intake & Output 12/18/18 06:00 Intake Total 4930 ml Balance 4930 ml Laboratory Tests 12/17/18 16:44: Blood Urea Nitrogen 8, Creatinine 1.24, Sodium Level 131L, Potassium Level 2.9*L, Chloride Level 102, Carbon Dioxide Level 16L, Calcium Level 8.3L, Anion Gap 13, Glomerular Filtration Rate 50.0L, Fasting Glucose 388H 12/17/18 23:07: Blood Urea Nitrogen 7, Creatinine 0.98, Sodium Level 132L, Potassium Level 3.4L, Chloride Level 103, Carbon Dioxide Level 21, Calcium Level 8.1L, Anion Gap 8, Glomerular Filtration Rate > 60.0, Fasting Glucose 237H 12/18/18 04:46: Blood Urea Nitrogen 7, Creatinine 0.96, Sodium Level 135L, Potassium Level 2.8*L, Chloride Level 105, Carbon Dioxide Level 18L, Calcium Level 7.8L, Anion Gap 12, Glomerular Filtration Rate > 60.0, Fasting Glucose 205H, White Blood Count 9.8, Red Blood Count 3.20L, Hemoglobin 10.6L, Hematocrit 30.0L, Mean Corpuscular Volume 93.8, Mean Corpuscular Hemoglobin 33.1H, Mean Corpuscular Hem oglobin Concent 35.3, Red Cell Distribution Width 16.7H, Platelet Count 101L, Nucleated Red Blood Cells % (auto) 0.0, Aspartate Amino Transf (AST/SGOT) 126H, Alanine Aminotransferase (ALT/SGPT) 58, Alkaline Phosphatase 263H, Total Bilirubin 13.2H, Total Protein 5.8L, Albumin 2.3L, Magnesium Level 2.2, Albumin/Globulin Ratio 0.66L Current Medications Medications (Trade) Dose Ordered Sig/Kishor Route PRN Reason Start Time Stop Time Status Last Admin Dose Admin Folic Acid (Folic Acid) 1 mg DAILY PO 12/17/18 09:00 12/18/18 10:50 1 MG Heparin Sodium (Porcine) (Heparin) 5,000 units Q12H SC 12/16/18 21:00 12/18/18 10:48 5,000 UNITS Lactulose (Cephulac) 30 ml Q8H PO 12/17/18 14:00 12/18/18 14:44 30 ML Multivitamins (Theragram-M) 1 tab DAILY PO 12/17/18 09:00 12/18/18 10:50 1 TAB Oxazepam (Serax) 20 mg Q6HP PRN PO AGITATION 12/17/18 23:30 12/17/18 23:52 20 MG Pantoprazole Sodium (Protonix) 40 mg DAILY PO 12/17/18 09:00 12/18/18 10:51 40 MG Potassium Chloride (Micro-K Extencaps) 20 meq DAILY PO 12/18/18 09:00 12/18/18 10:50 20 MEQ Prednisone (Deltasone) 40 mg DAILY PO 12/16/18 20:00 12/17/18 08:09 40 MG Sertraline HCl (Zoloft) 25 mg DAILY PO 12/17/18 09:00 12/18/18 10:50 25 MG Sodium Chloride 1,000 ml @ 75 mls/hr [id number] IV 12/16/18 20:00 12/17/18 22:52 75 MLS/HR Thiamine HCl (Thiamine HCl) 100 mg DAILY PO 12/17/18 09:00 12/18/18 10:50 100 MG A/P 1-Hepatic Encephalopathy, resolved 2-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 Pt can be transferred to regular floor now IR Paracentesis today Cont monitoring VS per protocol Cont Lactulose prn adjust with frequency of BM as ordered DC Steroids Cont Spironolactone Start Lasix Replace electrolytes Close clinical monitoring Pt is not a candidate for liver transplantation due to current ETOH use. CM/SW consult for ETOH program PT/OT evaluation and treatment VS,Fishbone, I+O VS, Fishbone, I+O Laboratory Tests 12/17/18 16:44 Calcium Level 8.3 L 12/17/18 23:07 Calcium Level 8.1 L 12/18/18 04:46 Calcium Level 7.8 L, Red Blood Count 3.20 L, Mean Corpuscular Volume 93.8, Mean Corpuscular Hemoglobin 33.1 H, Mean Corpuscular Hemoglobin Concent 35.3, Red Cell Distribution Width 16.7 H, Aspartate Amino Transf (AST/SGOT) 126 H, Alanine Aminotransferase (ALT/SGPT) 58, Alkaline Phosphatase 263 H, Total Bilirubin 13.2 H, Total Protein 5.8 L, Albumin 2.3 L Vital Signs Date Time Temp Pulse Resp B/P (MAP) Pulse Ox O2 Delivery O2 Flow Rate FiO2 12/18/18 10:49 16 12/18/18 07:26 99.0 99 131/72 (91) 98 12/17/18 16:00 2.0 12/17/18 04:00 100 12/16/18 22:29 Room Air I&O- Last 24 Hours up to 6 AM 12/18/18 06:00 Intake Total 4930 ml Balance 4930 ml MAGGIE RICE MD Dec 18, 2018 15:55
[2018-12-18] MEDS: POTASSIUM CHLORIDE 10 MEQ SR TABLET PO SCH ×3 (16:00→20:14)
[2018-12-18] MEDS: SPIRONOLACTONE 50 MG TAB PO SCH (16:25)
[2018-12-18] MEDS: FUROSEMIDE 20 MG TAB PO SCH (16:25)
[2018-12-18] MEDS ORDERED: KETOROLAC 30 MG/ML VIAL (J1885) IV PRN (18:45)
[2018-12-18] MEDS: NS 1,000 ML IV SCH (20:19)
[2018-12-18 22:00] VITALS: BP 120/70
[2018-12-19 00:15] VITALS: BP 126/71
[2018-12-19] MEDS: KCL 10MEQ/100ML SWI (KRUN) 10 MEQ in APPROPRIATE DILUENT 1 EA IV SCH ×2 (00:32→01:57)
[2018-12-19] MEDS: NS 1,000 ML IV SCH (01:20)
[2018-12-19] MEDS: LACTULOSE 20 GM/30 ML SYRUP UD PO SCH ×3 (05:35→21:15)
[2018-12-19 06:00] VITALS: BP 133/67
[2018-12-19 06:13] LABS: HEMOGLOBIN 10.8 g/dl (12.0-15.5); MEAN CORPUSCULAR HEMOGLOBIN 33.6 pg (27.0-33.0); MEAN CORPUSCULAR HGB CONC 34.8 g/dl (32.0-36.5); MEAN CORPUSCULAR VOLUME 96.6 fl (80.0-96.0); RED BLOOD COUNT 3.21 10^6/uL (4.00-5.40); WHITE BLOOD COUNT 7.2 10^3/uL (4.0-10.0)
[2018-12-19 06:47] LABS: BLOOD UREA NITROGEN 9 MG/DL (7-18); CARBON DIOXIDE LEVEL 17 MEQ/L (21-32); CHLORIDE LEVEL 106 MEQ/L (98-107); CREATININE FOR GFR 1.04 MG/DL (0.55-1.30); GLOMERULAR FILTRATION RATE > 60.0 (>58); GLUCOSE, FASTING 156 MG/DL (70-100); POTASSIUM SERUM 4.2 MEQ/L (3.5-5.1); SODIUM LEVEL 131 MEQ/L (136-145)
[2018-12-19 06:48] LABS: ALBUMIN 2.3 GM/DL (3.2-5.2); ALT/SGPT 58 U/L (12-78); BILIRUBIN,TOTAL 16.3 MG/DL (0.2-1.0); CALCIUM LEVEL 8.6 MG/DL (8.5-10.1); IRON (FE) 87 UG/DL (50-170); PERCENT SATURATION 47.5 % (13.2-45.0); PLATELET COUNT, AUTOMATED 86 10^3/uL (150-450); TOTAL IRON BINDING CAPACITY 183 UG/DL (250-450); TOTAL PROTEIN 5.9 GM/DL (6.4-8.2)
[2018-12-19] MEDS ORDERED: oxyCODONE 5MG TAB PO ONE (07:30)
[2018-12-19] MEDS ORDERED: oxyCODONE 10 MG CR TAB PO ONE (07:30)
[2018-12-19] MEDS: HEPARIN SOD (PORCINE) 5000 UNITS/ML VIAL SC SCH (09:00)
[2018-12-19] MEDS: predniSONE 20 MG TAB PO SCH (09:00)
[2018-12-19] MEDS: POTASSIUM CHLORIDE 10 MEQ SR TABLET PO SCH ×3 (09:00→21:00)
[2018-12-19] MEDS: SERTRALINE HCL 25 MG TABLET PO SCH (10:13)
[2018-12-19] MEDS: THIAMINE 100 MG TAB PO SCH (10:13)
[2018-12-19] MEDS: SPIRONOLACTONE 50 MG TAB PO SCH (10:13)
[2018-12-19] MEDS: PANTOPRAZOLE 40MG TAB (PROTONIX) PO SCH (10:14)
[2018-12-19] MEDS: FOLIC ACID 1 MG TAB PO SCH (10:14)
[2018-12-19] MEDS: FUROSEMIDE 20 MG TAB PO SCH (10:14)
[2018-12-19] MEDS: MULTIVITAMINS/MINERALS THERAP 1 TAB PO SCH (10:14)
[2018-12-19] MEDS ORDERED: NALOXONE INJ 0.4 MG/1 ML VIAL (J2310) IV PRN (11:15)
[2018-12-19] MEDS ORDERED: metOLazone 5 MG TAB PO ONE (11:15)
[2018-12-19] MEDS ORDERED: methylPREDNISolone INJ 125 MG/2 ML VIAL (J2930) IV ONE (11:15)
[2018-12-19] MEDS ORDERED: hydrOXYzine 10 MG TAB PO ONE (11:15)
[2018-12-19] MEDS ORDERED: FUROSEMIDE 40 MG/4 ML VIAL (J1940) IV ONE (11:15)
--- NOTE | 2018-12-19 11:41 | IPNPDOC ---
Date Seen The patient was seen on 12/19/18. Progress Note SUBJECTIVE: Pt says that she just moved to [place] with a house here, two houses in [place] which she is trying to sell, and has previously followed with a locomotive crane operator in [place], but does not have a "liver doctor" in [place], yet. She has run out of her medications, and have tried to do alcohol detox on her own drinking 2 less servings of alcohol every day. She recently got , and she wants to get better and plans on losing weight and exercising, but her abdomen being distended with ascites makes it hard for her to walk and jog. "I don't want to take prednisone. It makes me eat everything. Then, it makes me feel so full. Maybe , just a shot of steroids, and something to get rid of all this water in my belly." OBJECTIVE: PHYSICAL EXAMINATION: VITAL SIGNS: PLS SEE BELOW GENERAL: AAOx 3 able to converse appropriately without dyspnea. jaundice icterus, restless and anxious, but with slow whispers when she talks HEENT: Dry mucous membranes no elevation and CVP, obvious scleral icterus CARDIOVASCULAR: S1 S2 regular no additional heart sounds appreciated. RESPIRATORY: Clear to auscultation bilaterally. ABDOMINAL: Bowel sounds present abdomen soft and [place] present slight fluid wave but not distended. EXTREMITIES: No clubbing cyanosis or edema, clear asterixis NEUROLOGICAL: Spontaneously moves all 4 extremities cranial 2 through 12 grossly intact no gross focal deficits appreciated PSYCHOLOGICAL: Flat affect, psychomotor retardation LABORATORY DATA, IMAGING STUDIES, MICROBIOLOGY: ASSESSMENT & PLAN: Patient is a 43-year-old female with known history of alcohol abuse she has been attempting to wean herself from alcohol over the last several days but was becoming confused and was brought into the emergency room by family secondary to the concern for her confusion. At the time of my exam the patient is awake she is oriented to person sheis in the hospital she can tell me the day of the week the month but not the year. She is quite slow to respond and unable to provide much of the history and as such much of it is obtained from the ER provider reviewed the medical record in addition to speaking directly with the patient. Patient denies any pain but does complain of feeling groggy weak and tired. She doesn't her last drink was yesterday. She doesn't she drinks one bottle of alcohol per day vodka.. Otherwise patient denies weight loss, hair loss, heada yanira, visual changes, chest pain, shortness of breath, cough, nausea, vomiting, diarrhea, abdominal pain, muscle aches, worsening arthritis, change in mood Alcoholic liver cirrhosis: Meld score 27 indicating 19.6% 3 month mortality, function 42-1/2 months his prognosis indicating poor. I will start her on prednisone 40 mg daily for 28 day course, continued on atenolol with holding parameters lactulose as outlined above. Spironolactone with holding parameter. We will hold her Lasix given to her hypokalemia and hyponatremia and dry mucous membranes. Was previously on transfer list not a candidate secondary to active alcohol abuse. Alcoholic Hepatitis -complicated by worsening bilirubin, coagulopathy, and ascites -strongly encouraged to take po prednisone x 6 weeks, but pt "I don't want to take prednisone. It makes me eat everything. Then, it makes me feel so full. Maybe , just a shot of steroids, and something to get rid of all this water in my belly." -Pt has been advised that without prednisone, her decompensated liver cirrhosis can progress and cause seizures, worsening ascites, sbp, respiratory distress, gi bleed, encephalopathy, sepsis, and ," but patient says, "I don't like what it does to me. I won't take that, even if those things happen." -she was strongly advised to call and discuss this with her and family. -Without intervention, pt will continue to decompensate. -She is actively drinking alcohol, and also refusing to go to alcohol rehab, because "I've done that before, and it makes things worse." Decompensated Liver cirrhosis with portal hypertension -poor overall prognosis if no intervention is done. -complicated by worsening bilirubin, coagulopathy, alcoholic hepatitis, encephalopathy, and ascites -strongly encouraged to take po prednisone x 6 weeks, but pt "I don't want to take prednisone. It makes me eat everything. Then, it makes me feel so full. Maybe , just a shot of steroids, and something to get rid of all this water in my belly." -Pt has been advised that without prednisone, her decompensated liver cirrhosis can progress and cause seizures, worsening ascites, sbp, respiratory distress, gi bleed, encephalopathy, sepsis, and ," but patient says, "I don't like what it does to me. I won't take that, even if those things happen." -she was strongly advised to call and discuss this with her and family. -Without intervention, pt will continue to decompensate. -She is actively drinking alcohol, and also refusing to go to alcohol rehab, because "I've done that before, and it makes things worse." History of Esophageal varices, portal gastropathy -due to decompensated liver cirrhosis and portal hypertension Endstage Alcoholic Liver Cirrhosis -will need propranolol if blood pressure permits, lasix, spironolactone to prevent hypokalemia, xifaxan if recurrent ascites and encephalopathy -ETOH cessation counselling has been provided, but pt refuses outpt ETOH program. -She is actively drinking alcohol, and also refusing to go to alcohol rehab, because "I've done that before, and it makes things worse." -if blood pressure should decrease, may try albumin infusion and diuresis with lasix to removed excess fluids -nutrion consult to increase albumin stores -will need a locomotive crane operator or at least GI in [place] at hospital discharge Pruritus -due to Jaundice from ETOH hepatitis -discussed at length that inflammation in the liver will improve with prednisone, but pt is adamant that "It makes me eat everything, and I don't like that." Hepatic Encephalopathy -due to elevated ammonia from liver cirrhosis -lactulose Coagulopathy -due to endstage liver disease Active ETOH abuse -DT precautions -prn serax -on MVI, thiamine, folate Thrombocytopenia -due to liver disease -encourage ambulation -avoid heparin or lovenox DVT PROPHYLAXIS: compression stockings VS, I&O, 24H, Fishbone Vital Signs/I&O Vital Signs Date Time Temp Pulse Resp B/P (MAP) Pulse Ox O2 Delivery O2 Flow Rate FiO2 12/19/18 06:00 97.6 94 18 133/67 (89) 100 12/17/18 16:00 2.0 12/17/18 04:00 100 12/16/18 22:29 Room Air I&O- Last 24 Hours up to 6 AM 12/19/18 06:00 Intake Total 3710 ml Output Total 750 ml Balance 2960 ml Laboratory Data 24H LABS Laboratory Tests 2 12/19/18 05:29: Nucleated Red Blood Cells % (auto) 0.0, Immature Platelet Fraction 4.7, Anion Gap 8, Glomerular Filtration Rate > 60.0, Blood Urea Nitrogen 9, Creatinine 1.04, Sodium Level 131L, Potassium Level 4.2#, Chloride Level 106, Carbon Dioxide Level 17L, Calcium Level 8.6, Aspartate Amino Transf (AST/SGOT) 111H, Alanine Aminotransferase (ALT/SGPT) 58, Alkaline Phosphatase 202H, Total Bilirubin 16.3*H, Total Protein 5.9L, Albumin 2.3L, Iron Level 87, Total Iron Binding Capacity 183L, Transferrin % Saturation 47.5H, Albumin/Globulin Ratio 0.64L CBC/BMP Laboratory Tests 12/19/18 05:29 Red Blood Count 3.21 L, Mean Corpuscular Volume 96.6 H, Mean Corpuscular Hemoglobin 33.6 H, Mean Corpuscular Hemoglobin Concent 34.8, Red Cell Distribution Width 17.4 H, Calcium Level 8.6, Aspartate Amino Transf (AST/SGOT) 111 H, Alanine Aminotransferase (ALT/SGPT) 58, Alkaline Phosphatase 202 H, Total Bilirubin 16.3 *H, Total Protein 5.9 L, Albumin 2.3 L JEFF SHANNON MD Dec 19, 2018 11:05
[2018-12-19 14:00] VITALS: BP 142/85
--- NOTE | 2018-12-19 15:02 | REP ---
Clinical: Elevated bilirubin. Technique: Noncontrast MRI of the abdomen using MRCP technique. Findings: Evaluation is essentially nondiagnostic as MRCP examination due to motion artifact and technical factors. Cirrhosis with splenomegaly and portal hypertension is appreciated along with diffuse ascites. The gallbladder is somewhat contracted and without obvious gallstones. Impression: 1. Nondiagnostic as MRCP 2. The gallbladder is partially contracted and without obvious gallstones and no obvious biliary ductal dilatation is appreciated. 3. Cirrhosis and portal hypertension. Electronically Signed by Mariano Tate MD 12/19/2018 11:08 A
[2018-12-19] MEDS: CHOLESTYRAMINE 4 GM PWD PKT PO SCH ×2 (15:30→17:51)
[2018-12-19] MEDS ORDERED: oxyCODONE 10 MG CR TAB PO SCH (21:00)
[2018-12-19 21:30] VITALS: BP 149/84
[2018-12-19] MEDS: OXAZEPAM 10 MG CAP PO PRN (21:47)
[2018-12-19 22:00] VITALS: BP 149/84
[2018-12-19] MEDS: oxyCODONE 5MG TAB PO PRN (22:47)
[2018-12-20 00:21] VITALS: BP 147/87
[2018-12-20] MEDS: CHOLESTYRAMINE 4 GM PWD PKT PO SCH ×4 (00:37→18:58)
[2018-12-20] MEDS: LACTULOSE 20 GM/30 ML SYRUP UD PO SCH ×3 (05:47→22:00)
[2018-12-20] MEDS: oxyCODONE 5MG TAB PO PRN ×3 (05:53→23:10)
[2018-12-20 05:54] VITALS: BP 130/69
[2018-12-20 06:00] VITALS: BP 130/69
[2018-12-20 06:14] LABS: HEMATOCRIT 30.1 % (36.0-47.0); HEMOGLOBIN 11.1 g/dl (12.0-15.5); MEAN CORPUSCULAR HEMOGLOBIN 33.3 pg (27.0-33.0); MEAN CORPUSCULAR VOLUME 90.4 fl (80.0-96.0); RED BLOOD COUNT 3.33 10^6/uL (4.00-5.40); WHITE BLOOD COUNT 8.5 10^3/uL (4.0-10.0)
[2018-12-20 06:22] LABS: MEAN CORPUSCULAR HGB CONC 36.9 g/dl (32.0-36.5); PLATELET COUNT, AUTOMATED 89 10^3/uL (150-450)
[2018-12-20] MEDS: OXAZEPAM 10 MG CAP PO PRN (06:44)
[2018-12-20 07:05] LABS: ALBUMIN 2.6 GM/DL (3.2-5.2); ALT/SGPT 58 U/L (12-78); BILIRUBIN,TOTAL 20.6 MG/DL (0.2-1.0); BLOOD UREA NITROGEN 10 MG/DL (7-18); CARBON DIOXIDE LEVEL 20 MEQ/L (21-32); CHLORIDE LEVEL 96 MEQ/L (98-107); CREATININE FOR GFR 0.92 MG/DL (0.55-1.30); GLOMERULAR FILTRATION RATE > 60.0 (>58); GLUCOSE, FASTING 160 MG/DL (70-100); POTASSIUM SERUM 2.6 MEQ/L (3.5-5.1); SODIUM LEVEL 129 MEQ/L (136-145)
[2018-12-20 07:06] LABS: TOTAL PROTEIN 6.1 GM/DL (6.4-8.2)
[2018-12-20 07:58] LABS: INR 2.05; PROTHROMBIN TIME 22.9 SECONDS (11.8-14.0)
[2018-12-20 07:59] LABS: PARTIAL THROMBOPLASTIN TIME 40.7 SECONDS (25.0-38.4)
[2018-12-20] MEDS: KCL 10MEQ/100ML SWI (KRUN) 10 MEQ in APPROPRIATE DILUENT 1 EA IV SCH ×5 (08:09→16:18)
[2018-12-20] MEDS: POTASSIUM CHLORIDE 10 MEQ SR TABLET PO SCH (09:00)
[2018-12-20] MEDS: THIAMINE 100 MG TAB PO SCH (10:46)
[2018-12-20] MEDS: predniSONE 20 MG TAB PO SCH (10:47)
[2018-12-20] MEDS: MULTIVITAMINS/MINERALS THERAP 1 TAB PO SCH (10:47)
[2018-12-20] MEDS: SPIRONOLACTONE 50 MG TAB PO SCH (10:47)
[2018-12-20] MEDS: FUROSEMIDE 20 MG TAB PO SCH (10:47)
[2018-12-20] MEDS: PANTOPRAZOLE 40MG TAB (PROTONIX) PO SCH (10:49)
[2018-12-20] MEDS: SERTRALINE HCL 25 MG TABLET PO SCH (10:49)
[2018-12-20] MEDS: hydrOXYzine 10 MG TAB PO PRN ×2 (10:49→23:08)
--- NOTE | 2018-12-20 13:28 | IPNPDOC ---
Date Seen The patient was seen on 12/20/18. Progress Note SUBJECTIVE: "Im going to home to sleep. My is at home for a month. I promise I'll take my meds ." Pt c/o generalized pruritus, increasing abdominal fullness, lower extremity edema, wt gain, but no confusion and improved lethargy. Due to concerns about pt signing out AMA with acute etoh hepatitis at risk for seizures, peritonitis, comma, as well as arrythmias due to hypokalemia, Her was called to come into the hospital to convince the patient to stay for treatment. No c/o sob, nausea, vomiting, or abdominal pain. on prednisone for MELD score 25 Discriminant Function 39. no fevers or GI bleed overnight. Pt remains noncompliant with meds,previously refused po prednisone due to "it makes me eat everything." After an extensive discussion with the patient's , he was able to convince the patient to be compliant, and says his sister and his parents can help out when he goes back to work in one month. He also says that patient and he can avoid friends and other family who drink alcohol. Both are unwilling to go into an alcohol rehab program. "She quit for five years before, but after one drink . . . well, that wasn't me." Pt and her gave permission for treatment, for [facility] to [facility] if [facility], and to obtain old medical records from [place], [place] doctors. OBJECTIVE: PHYSICAL EXAMINATION: VITAL SIGNS: PLS SEE BELOW GENERAL: AAOx 3 able to converse appropriately without dyspnea. jaundice icterus, restless and anxious, but with slow whispers when she talks HEENT: Dry mucous membranes no elevation and CVP, obvious scleral icterus CARDIOVASCULAR: S1 S2 regular no additional heart sounds appreciated. RESPIRATORY: Clear to auscultation bilaterally. ABDOMINAL: Bowel sounds present abdomen soft and [place] present slight fluid wave but not distended. EXTREMITIES: No clubbing cyanosis or edema, clear asterixis NEUROLOGICAL: Spontaneously moves all 4 extremities cranial 2 through 12 grossly intact no gross focal deficits appreciated PSYCHOLOGICAL: Flat affect, psychomotor retardation LABORATORY DATA, IMAGING STUDIES, MICROBIOLOGY: ASSESSMENT & PLAN: Patient is a 43-year-old female with known history of alcohol abuse she has been attempting to wean herself from alcohol over the last several days but was becoming confused and was brought into the emergency room by family secondary to the concern for her confusion. At the time of my exam the patient is awake she is oriented to person jacinta in the hospital she can tell me the day of the week the month but not the year. She is quite slow to respond and unable to provide much of the history and as such much of it is obtained from the ER provider reviewed the medical record in addition to speaking directly with the patient. Patient denies any pain but does complain of feeling groggy weak and tired. She doesn't her last drink was yesterday. She doesn't she drinks one bottle of alcohol per day vodka.. Otherwise patient denies weight loss, hair loss, head ache, visual changes, chest pain, shortness of breath, cough, nausea, vomiting, diarrhea, abdominal pain, muscle aches, worsening arthritis, change in mood Alcoholic liver cirrhosis: Meld score 27 indicating 19.6% 3 month mortality, function 42-1/2 months his prognosis indicating poor. I will start her on prednisone 40 mg daily for 28 day course, continued on atenolol with holding parameters lactulose as outlined above. Spironolactone with holding parameter. We will hold her Lasix given to her hypokalemia and hyponatremia and dry mucous membranes. Was previously on transfer list not a candidate secondary to active alcohol abuse. Acute Alcoholic Hepatitis MELD 25 -complicated by worsening bilirubin, coagulopathy, and ascites -strongly encouraged to take po prednisone x 6 weeks, but pt "I don't want to take prednisone. It makes me eat everything. Then, it makes me feel so full. Maybe , just a shot of steroids, and something to get rid of all this water in my belly." -Pt has been advised that without prednisone, her decompensated liver cirrhosis can progress and cause seizures, worsening ascites, sbp, respiratory distress, gi bleed, encephalopathy, sepsis, and ," but patient says, "I don't like what it does to me. I won't take that, even if those things happen." -she was strongly advised to call and discuss this with her and family. -Without intervention, pt will continue to decompensate. -She is actively drinking alcohol, and also refusing to go to alcohol rehab, because "I've done that before, and it makes things worse." Decompensated Liver cirrhosis with portal hypertension -poor overall prognosis if no intervention is done. -complicated by worsening bilirubin, coagulopathy, alcoholic hepatitis, encephalopathy, and ascites -strongly encouraged to take po prednisone x 6 weeks, but pt "I don't want to take prednisone. It makes me eat everything. Then, it makes me feel so full. Maybe , just a shot of steroids, and something to get rid of all this water in my belly." -Pt has been advised that without prednisone, her decompensated liver cirrhosis can progress and cause seizures, worsening ascites, sbp, respiratory distress, gi bleed, encephalopathy, sepsis, and ," but patient says, "I don't like what it does to me. I won't take that, even if those things happen." -she was strongly advised to call and discuss this with her and family. -Without intervention, pt will continue to decompensate. -She is actively drinking alcohol, and also refusing to go to alcohol rehab, because "I've done that before, and it makes things worse." -xifaxan 400 mg bid, continue lactulose, held nadolol to prevent hypoperfusion and risk of hepatorenal syndrome. -if lasix causes hypotension, albumin infusions. Hypokalemia -due to lasix on spironolactone and supplemental kruns. History of Esophageal varices, portal gastropathy -due to decompensated liver cirrhosis and portal hypertension Endstage Alcoholic Liver Cirrhosis -will need propranolol if blood pressure permits, lasix, spironolactone to prevent hypokalemia, xifaxan if recurrent ascites and encephalopathy -ETOH cessation counselling has been provided, but pt refuses outpt ETOH program. 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 or at least GI in [place] at hospital discharge Pruritus -due to Jaundice from ETOH hepatitis -discussed at length that inflammation in the liver will improve with predn isone, but pt is adamant that "It makes me eat everything, and I don't like that." Hepatic Encephalopathy -due to elevated ammonia from liver cirrhosis -lactulose Coagulopathy -due to endstage liver disease Active ETOH abuse -DT precautions -prn serax -on MVI, thiamine, folate Thrombocytopenia -due to liver disease -encourage ambulation -avoid heparin or lovenox DVT PROPHYLAXIS: compression stockings VS, I&O, 24H, Fishbone Vital Signs/I&O Vital Signs Date Time Temp Pulse Resp B/P (MAP) Pulse Ox O2 Delivery O2 Flow Rate FiO2 12/20/18 11:18 18 12/20/18 06:00 97.0 69 130/69 (89) 97 12/17/18 16:00 2.0 12/17/18 04:00 100 12/16/18 22:29 Room Air I&O- Last 24 Hours up to 6 AM 12/20/18 06:00 Intake Total 2045 ml Output Total 0 ml Balance 2045 ml Laboratory Data 24H LABS Laboratory Tests 2 12/20/18 05:33: Nucleated Red Blood Cells % (auto) 0.0, Immature Platelet Fraction 4.6, Anion Gap 13, Glomerular Filtration Rate > 60.0, Blood Urea Nitrogen 10, Creatinine 0.92, Sodium Level 129L, Potassium Level 2.6#*L, Chloride Level 96L, Carbon Dioxide Level 20L, Calcium Level 8.0L, Aspartate Amino Transf (AST/SGOT) 90H, Alanine Aminotransferase (ALT/SGPT) 58, Alkaline Phosphatase 214H, Total Bilirubin 20.6*H, Total Protein 6.1L, Albumin 2.6L, Albumin/Globulin Ratio 0.74L 12/20/18 06:45: Ammonia 80H 12/20/18 07:28: Prothrombin Time 22.9H, Prothromb Time International Ratio 2.05, Activated Partial Thromboplast Time 40.7H CBC/BMP Laboratory Tests 12/20/18 05:33 Red Blood Count 3.33 L, Mean Corpuscular Volume 90.4, Mean Corpuscular Hemo globin 33.3 H, Mean Corpuscular Hemoglobin Concent 36.9 H, Red Cell Distribution Width 16.6 H, Calcium Level 8.0 L, Aspartate Amino Transf (AST/SGOT) 90 H, Alanine Aminotransferase (ALT/SGPT) 58, Alkaline Phosphatase 214 H, Total Bilirubin 20.6 *H, Total Protein 6.1 L, Albumin 2.6 L JEFF SHANNON MD Dec 20, 2018 13:28
[2018-12-20 14:00] VITALS: BP 129/75
[2018-12-20] MEDS: PHYTONADIONE 5 MG TAB PO SCH (14:13)
[2018-12-20] MEDS: POTASSIUM CHLORIDE 10% LIQ 20 MEQ/15 ML UDC PO SCH ×2 (17:06→23:06)
[2018-12-20] MEDS: FUROSEMIDE 20 MG/2 ML VIAL (J1940) IV SCH (17:06)
[2018-12-20 22:00] VITALS: BP 142/82
[2018-12-21] MEDS: CHOLESTYRAMINE 4 GM PWD PKT PO SCH ×6 (00:22→20:30)
[2018-12-21 00:26] VITALS: BP 142/86
[2018-12-21 06:00] VITALS: BP 122/74
[2018-12-21] MEDS: LACTULOSE 20 GM/30 ML SYRUP UD PO SCH ×3 (06:00→20:25)
[2018-12-21 06:17] VITALS: BP 122/74
[2018-12-21 06:18] LABS: HEMATOCRIT 29.7 % (36.0-47.0); HEMOGLOBIN 10.8 g/dl (12.0-15.5); MEAN CORPUSCULAR HEMOGLOBIN 33.9 pg (27.0-33.0); MEAN CORPUSCULAR HGB CONC 36.4 g/dl (32.0-36.5); MEAN CORPUSCULAR VOLUME 93.1 fl (80.0-96.0); RED BLOOD COUNT 3.19 10^6/uL (4.00-5.40); WHITE BLOOD COUNT 7.8 10^3/uL (4.0-10.0)
[2018-12-21 06:25] LABS: PLATELET COUNT, AUTOMATED 90 10^3/uL (150-450)
[2018-12-21] MEDS: hydrOXYzine 10 MG TAB PO PRN (06:26)
[2018-12-21 06:52] LABS: ALBUMIN 2.6 GM/DL (3.2-5.2); ALT/SGPT 55 U/L (12-78); BILIRUBIN,TOTAL 20.3 MG/DL (0.2-1.0); BLOOD UREA NITROGEN 17 MG/DL (7-18); CALCIUM LEVEL 8.2 MG/DL (8.5-10.1); CARBON DIOXIDE LEVEL 23 MEQ/L (21-32); CHLORIDE LEVEL 96 MEQ/L (98-107); CREATININE FOR GFR 0.87 MG/DL (0.55-1.30); GLOMERULAR FILTRATION RATE > 60.0 (>58); GLUCOSE, FASTING 157 MG/DL (70-100); POTASSIUM SERUM 3.4 MEQ/L (3.5-5.1); SODIUM LEVEL 130 MEQ/L (136-145); TOTAL PROTEIN 5.8 GM/DL (6.4-8.2)
[2018-12-21 07:18] LABS: INR 1.78; PROTHROMBIN TIME 20.5 SECONDS (11.8-14.0)
[2018-12-21 07:19] LABS: PARTIAL THROMBOPLASTIN TIME 36.5 SECONDS (25.0-38.4)
[2018-12-21] MEDS ORDERED: KCL 10MEQ/100ML SWI (KRUN) 10 MEQ in APPROPRIATE DILUENT 1 EA IV ONE ×2 (08:00→10:00)
[2018-12-21] MEDS: POTASSIUM CHLORIDE 10% LIQ 20 MEQ/15 ML UDC PO SCH ×3 (08:09→20:24)
[2018-12-21] MEDS: predniSONE 20 MG TAB PO SCH (08:10)
[2018-12-21] MEDS: THIAMINE 100 MG TAB PO SCH (08:10)
[2018-12-21] MEDS: SERTRALINE HCL 25 MG TABLET PO SCH (08:11)
[2018-12-21] MEDS: FUROSEMIDE 20 MG/2 ML VIAL (J1940) IV SCH ×2 (08:11→17:07)
[2018-12-21] MEDS: SPIRONOLACTONE 50 MG TAB PO SCH (08:11)
[2018-12-21] MEDS: PANTOPRAZOLE 40MG TAB (PROTONIX) PO SCH (08:11)
[2018-12-21] MEDS: MULTIVITAMINS/MINERALS THERAP 1 TAB PO SCH (08:11)
[2018-12-21 08:33] LABS: FERRITIN 361 NG/ML (8-252); IRON (FE) 65 UG/DL (50-170); PERCENT SATURATION 40.4 % (13.2-45.0); TOTAL IRON BINDING CAPACITY 161 UG/DL (250-450)
[2018-12-21] MEDS: PHYTONADIONE 5 MG TAB PO SCH (09:43)
[2018-12-21 11:11] LABS: ACETAMINOPHEN LEVEL < 2.0 UG/ML (10.0-30.0); HEPATITIS A ANTIBODY IGM NEGATIVE (NEGATIVE); HEPATITIS B CORE ANTIBODY IGM NEGATIVE (NEGATIVE); HEPATITIS B SURFACE ANTIGEN NEGATIVE (NEGATIVE); HEPATITIS C VIRUS ABY INDEX 0.1 INDEX (<0.8)
[2018-12-21 14:00] VITALS: BP 144/83
--- NOTE | 2018-12-21 15:29 | IPNPDOC ---
Date Seen The patient was seen on 12/21/18. Progress Note SUBJECTIVE: After an extensive discussion with both the patient and her about the overall medical plan being centered around alcohol cessation and a good support system. Per [facility] [employer] diabetes solutions specialist, Dr. Laurita Shelton, 10:25 AM-10.42AM, in [place], the patient does not need inpatient transfer to the the liver center. Recommendations include: 5 days of high dose iv thiamine 500mg if poor oral intake, prednisone 40mg daily x7days, daily coagulation and aminotransferase monitoring as bilirubin lags behind, vitamin k 10 mg daily, optimize nutrition, liver with doppler, r/o other liver diseases and viruses. Pt's lactulose has been held due to several episodes of diarrhea with normal ammonia level. she is appropriate and c/o generalized pruritus not relieved with atarax and questran. still overtly jaundiced but no fever, chills. gi bleed, abd pain, hypothermia or seizures. OBJECTIVE: PHYSICAL EXAMINATION: VITAL SIGNS: PLS SEE BELOW GENERAL: AAOx 3 able to converse appropriately without dyspnea. jaundice icte parmjit, restless and anxious, but with slow whispers when she talks HEENT: Dry mucous membranes no elevation and CVP, obvious scleral icterus CARDIOVASCULAR: S1 S2 regular no additional heart sounds appreciated. RESPIRATORY: Clear to auscultation bilaterally. ABDOMINAL: Bowel sounds present abdomen soft and [place] present slight fluid wave but not distended. EXTREMITIES: No clubbing cyanosis or edema, clear asterixis NEUROLOGICAL: Spontaneously moves all 4 extremities cranial 2 through 12 grossly intact no gross focal deficits appreciated PSYCHOLOGICAL: Flat affect, psychomotor retardation LABORATORY DATA, IMAGING STUDIES, MICROBIOLOGY: ASSESSMENT & PLAN: Patient is a 43-year-old female with known history of alcohol abuse she has been attempting to wean herself from alcohol over the last several days but was becoming confused and was brought into the emergency room by family secondary to the concern for her confusion. At the time of my exam the patient is awake she is oriented to person sheis in the hospital she can tell me the day of the week the month but not the year. She is quite slow to respond and unable to provide much of the history and as such much of it is obtained from the ER provider reviewed the medical record in addition to speaking directly with the patient. Patient denies any pain but does complain of feeling groggy weak and tired. She doesn't her last drink was yesterday. She doesn't she drinks one bottle of alcohol per day vodka.. Otherwise patient denies weight loss, hair loss, headache, visual changes, chest pain, shortness of breath, cough, nausea, vomiting, diarrhea, abdominal pain, muscle aches, worsening arthritis, change in mood Alcoholic liver cirrhosis: Meld score 27 indicating 19.6% 3 month mortality, function 42-1/2 months his prognosis indicating poor. I will start her on prednisone 40 mg daily for 28 day course, continued on atenolol with holding parameters lactulose as outlined above. Spironolactone with holding parameter. We will hold her Lasix given to her hypokalemia and hyponatremia and dry mucous membranes. Was previously on transfer list not a candidate secondary to active alcohol abuse. Acute Alcoholic Hepatitis MELD 25 -complicated by worsening bilirubin, coagulopathy, and ascites -strongly encouraged to take po prednisone x 6 weeks, but pt "I don't want to take prednisone. It makes me eat everything. Then, it makes me feel so full. Maybe , just a shot of steroids, and something to get rid of all this water in my belly." -Pt has been advised that without prednisone, her decompensated liver cirrhosis can progress and cause seizures, worsening ascites, sbp, respiratory distress, gi bleed, encephalopathy, sepsis, and ," but patient says, "I don't like what it does to me. I won't take that, even if those things happen." -she was strongly advised to call and discuss this with her and family. -Without intervention, pt will continue to decompensate. -She is actively drinking alcohol, and also refusing to go to alcohol rehab, because "I've done that before, and it makes things worse." Decompensated Liver cirrhosis with portal hypertension -poor overall prognosis if no intervention is done. -complicated by worsening bilirubin, coagulopathy, alcoholic hepatitis, encephalopathy, and ascites -strongly encouraged to take po prednisone x 6 weeks, but pt "I don't want to take prednisone. It makes me eat everything. Then, it makes me feel so full. Maybe , just a shot of steroids, and something to get rid of all this water in my belly." -Pt has been advised that without prednisone, her decompensated liver cirrhosis can progress and cause seizures, worsening ascites, sbp, respiratory distress, gi bleed, encephalopathy, sepsis, and ," but patient says, "I don't like what it does to me. I won't take that, even if those things happen." -she was strongly advised to call and discuss this with her and family. -Without intervention, pt will continue to decompensate. -She is actively drinking alcohol, and also refusing to go to alcohol rehab, because "I've done that before, and it makes things worse." -xifaxan 400 mg bid, continue lactulose, held nadolol to prevent hypoperfusion and risk of hepatorenal syndrome. -if lasix causes hypotension, albumin infusions. -After an extensive discussion with both the patient and her about the overall medical plan being centered around alcohol cessation and a good support system. Per [facility] [employer] diabetes solutions specialist, Dr. Laurita Shelton, 10:25 AM-10.42AM, in [place], the patient does not need inpatient transfer to the [facility] [place]. Recommendations include: 5 days of high dose iv thiamine 500mg if poor oral intake, prednisone 40mg daily x7days, daily coagulation and aminotransferase monitoring as bilirubin lags behind, vitamin k 10 mg daily, optimize nutrition, liver with doppler, r/o other liver diseases and viruses. Pt's lactulose has been held due to several episodes of diarrhea with normal ammonia level. she is appropriate and c/o generalized pruritus not relieved with atarax and questran. still overtly jaundiced but no fever, chills. gi bleed, abd pain, hypothermia or seizures. Hypokalemia -due to lasix on spironolactone and supplemental kruns. History of Esophageal varices, portal gastropathy -due to decompensated liver cirrhosis and portal hypertension Endstage Alcoholic Liver Cirrhosis -will need propranolol if blood pressure permits, lasix, spironolactone to prevent hypokalemia, xifaxan if recurrent ascites and encephalopathy -ETOH cessation counselling has been provided, but pt refuses outpt ETOH progra m. -She is actively drinking alcohol, and also refusing to go to alcohol rehab, because "I've done that before, and it makes things worse." -if blood pressure should decrease, may try albumin infusion and diuresis with lasix to removed excess fluids -nutrion consult to increase albumin stores -will need a career services manager or at least GI in [place] at hospital discharge Pruritus -due to Jaundice from ETOH hepatitis -discussed at length that inflammation in the liver will improve with prednisone, but pt is adamant that "It makes me eat everything, and I don't like that." Hepatic Encephalopathy -due to elevated ammonia from liver cirrhosis -lactulose Coagulopathy -due to endstage liver disease -on vitamin k -no active bleeding Active ETOH abuse -DT precautions -prn serax -on MVI, thiamine, folate Thrombocytopenia -due to liver disease -encourage ambulation -avoid heparin or lovenox DVT PROPHYLAXIS: compression stockings VS, I&O, 24H, Fishbone Vital Signs/I&O Vital Signs Date Time Temp Pulse Resp B/P (MAP) Pulse Ox O2 Delivery O2 Flow Rate FiO2 12/21/18 06:17 85 122/74 12/21/18 00:20 12 12/20/18 22:00 97.2 100 12/17/18 16:00 2.0 12/17/18 04:00 100 12/16/18 22:29 Room Air I&O- Last 24 Hours up to 6 AM 12/21/18 06:00 Intake Total 1180 ml Output Total 1300 ml Balance -120 ml Laboratory Data 24H LABS Laboratory Tests 2 12/20/18 06:45: Ammonia 80H 12/20/18 07:28: Prothrombin Time 22.9H, Prothromb Time International Ratio 2.05, Activated Partial Thromboplast Time 40.7H 12/21/18 05:40: CBC/BMP JEFF SHANNON MD Dec 21, 2018 06:23
[2018-12-21] MEDS: hydrOXYzine 25 MG TAB PO SCH ×2 (18:30→23:39)
[2018-12-21] MEDS: oxyCODONE 5MG TAB PO PRN (20:26)
[2018-12-21 22:00] VITALS: BP 136/72
[2018-12-22] VITALS: BP 136/72
[2018-12-22] MEDS: hydrOXYzine 25 MG TAB PO SCH ×4 (05:44→23:22)
[2018-12-22] MEDS: LACTULOSE 20 GM/30 ML SYRUP UD PO SCH ×3 (05:45→20:13)
[2018-12-22 06:00] VITALS: BP 138/78
[2018-12-22 06:17] LABS: HEMATOCRIT 30.3 % (36.0-47.0); HEMOGLOBIN 10.9 g/dl (12.0-15.5); MEAN CORPUSCULAR HEMOGLOBIN 32.6 pg (27.0-33.0); MEAN CORPUSCULAR VOLUME 90.7 fl (80.0-96.0); PLATELET COUNT, AUTOMATED 124 10^3/uL (150-450); RED BLOOD COUNT 3.34 10^6/uL (4.00-5.40); WHITE BLOOD COUNT 7.4 10^3/uL (4.0-10.0)
[2018-12-22 06:23] LABS: INR 1.53; PARTIAL THROMBOPLASTIN TIME 34.6 SECONDS (25.0-38.4); PROTHROMBIN TIME 18.1 SECONDS (11.8-14.0)
[2018-12-22 06:40] LABS: MONO REFLEX EBV VCA IgM NEGATIVE (NEGATIVE)
[2018-12-22 07:08] LABS: ALBUMIN 2.5 GM/DL (3.2-5.2); ALT/SGPT 56 U/L (12-78); BILIRUBIN,TOTAL 18.1 MG/DL (0.2-1.0); BLOOD UREA NITROGEN 19 MG/DL (7-18); CALCIUM LEVEL 8.4 MG/DL (8.5-10.1); CARBON DIOXIDE LEVEL 23 MEQ/L (21-32); CHLORIDE LEVEL 97 MEQ/L (98-107); CREATININE FOR GFR 0.93 MG/DL (0.55-1.30); GLOMERULAR FILTRATION RATE > 60.0 (>58); GLUCOSE, FASTING 171 MG/DL (70-100); POTASSIUM SERUM 3.3 MEQ/L (3.5-5.1); SODIUM LEVEL 129 MEQ/L (136-145); TOTAL PROTEIN 5.9 GM/DL (6.4-8.2)
[2018-12-22] MEDS: CHOLESTYRAMINE 4 GM PWD PKT PO SCH ×4 (07:41→20:14)
--- NOTE | 2018-12-22 07:56 | REP ---
Clinical: Cirrhosis. Evaluate for portal vein thrombosis. Technique: Real time eldridge scale and color Doppler evaluation using curved array transducer. Findings: Liver is mildly heterogeneous in parenchymal echo texture measuring approximately 18 cm in craniocaudal length and without focal hepatic lesion identified. A recanalized umbilical vein is identified consistent with portal vein hypertension. Spleen is mildly enlarged but without focal abnormality and measures 12.5 x 9.6 x 5.1 cm (splenic index 612). The pancreas is limited in evaluation due to interposed bowel gas but visualized portions appear normal. The gallbladder is contracted with suggestions for small amount of layering sludge. Wall thickening to approximately 6.4 mm is nonspecific and may be related to chronic cirrhosis or contracted state. No biliary ductal dilatation is appreciated and the common bile duct measures 3.8 mm diameter. Bilateral kidneys are normal in reniform shape and echogenicity without hydronephrosis. Right kidney measures 9.8 x 4.7 x 3.9 cm. Left kidney measures 9.9 x 5.0 x 4.7 cm. No ascites. Abdominal aorta measures up to 2.4 cm maximal diameter and appears grossly normal. The main portal vein measures 9 mm diameter the with normal velocities, wave patterns and flow direction noted through the splenic vein, main portal vein and intrahepatic portal veins. There is no evidence for portal vein thrombosis. Hepatic artery demonstrates normal wave pattern and velocity. Splenic vein 26.0 - 29.4 cm/sec Main portal vein 29.4 cm/sec Right anterior portal vein 30.2 cm/sec Right posterior portal vein 32.9 cm/sec Left portal vein 17.4 cm/sec Hepatic artery 122.5 cm/sec (PSV); RI- 0.56 Impression: 1. Coarsened hepatic echotexture consistent with the given history of cirrhosis. Evidence for portal vein hypertension including recanalized umbilical vein. 2. No evidence for portal vein thrombosis. 3. Contracted gallbladder with possible cholelithiasis. 4. Doppler interrogation demonstrates normal flow characteristics. Electronically Signed by Mariano Tate MD 12/22/2018 07:47 A
[2018-12-22 08:00] VITALS: BP 134/76
[2018-12-22] MEDS: PHYTONADIONE 5 MG TAB PO SCH (08:29)
[2018-12-22] MEDS: SPIRONOLACTONE 50 MG TAB PO SCH (08:30)
[2018-12-22] MEDS: SERTRALINE HCL 25 MG TABLET PO SCH (08:30)
[2018-12-22] MEDS: POTASSIUM CHLORIDE 10% LIQ 20 MEQ/15 ML UDC PO SCH ×3 (08:30→20:13)
[2018-12-22] MEDS: PANTOPRAZOLE 40MG TAB (PROTONIX) PO SCH (08:30)
[2018-12-22] MEDS: MULTIVITAMINS/MINERALS THERAP 1 TAB PO SCH (08:31)
[2018-12-22] MEDS: predniSONE 20 MG TAB PO SCH (08:31)
[2018-12-22] MEDS: FUROSEMIDE 20 MG/2 ML VIAL (J1940) IV SCH ×2 (08:31→17:02)
[2018-12-22] MEDS: THIAMINE HCL 200 MG/2 ML VIAL (J3411) IV SCH (08:33)
[2018-12-22] MEDS: oxyCODONE 5MG TAB PO PRN ×2 (10:53→20:15)
[2018-12-22 14:00] VITALS: BP 139/71
[2018-12-22 14:31] LABS: ANTINUCLEAR ANTIBODIES DIRECT Negative (Negative); CERULOPLASMIN 27.8 mg/dL (19.0-39.0)
--- NOTE | 2018-12-22 21:12 | IPNPDOC ---
Date Seen The patient was seen on 12/22/18. Progress Note SUBJECTIVE: Patient very anxious, worries about all her blood work value and changes. Asked to have Atarax and her Oxycodone at the same time at night to help her sleep as she says it works well in her past for her anxiety. Complains of headaches and diffuse pain everywhere. OBJECTIVE PHYSICAL EXAMINATION: VITAL SIGNS: Please see below. General: No acute distress, Alert, anxious. jaundice Eyes: Normal sclera, EOMI, ISAAC HENT: Atraumatic, neck supple, moist mucous membranes Cardiovascular: Normal rate, normal rhythm. No murmurs appreciated. Pulmonary: Clear to auscultation b/l, no wheezing GI: Soft, nontender, nondistended Skin: Warm and dry Neuro: CN grossly intact. No focal deficits. Strengths equal b/l. Psych: oriented x 3 LABORATORY DATA, IMAGING STUDIES, MICROBIOLOGY: Please see below. ASSESSMENT AND PLAN: 1. Acute alcoholic hepatitis and decompensated liver cirrhosis with history of esophageal varices and portal gastropathy - elevated bilirubin, coagulopathy and ascites. - Encourage alcohol cessation as well, reportedly mentioned that she does not want to as it makes things worse for her to stop drinking. - Called made out by previous attending for [facility] to Dr. Laurita Shelton in [place]. - Does not recommend transfer at this time but recommended: 5 days of high dose IV thiamine 500 mg, then 100 mg PO daily, prednisone 40 mg daily for 7 days, d aily LFT and coags monitoring, vitamin K 10 mg daily. Diurese with aldactone and spironolactone. If hypotensive, can max Midodrine up to 12.5mg TID. - lactulose held, NH3 now back at normal. 2. Hepatic encephalopathy - due to elevated NH3 from liver cirrhosis. - Resolved. 3. Alcohol abuse - Serax to prevent withdraw - c/w thiamine and folate. VS, I&O, 24H, Fishbone Vital Signs/I&O Vital Signs Date Time Temp Pulse Resp B/P (MAP) Pulse Ox O2 Delivery O2 Flow Rate FiO2 12/22/18 20:15 16 12/22/18 14:00 97.1 76 139/71 (93) 98 12/17/18 16:00 2.0 12/17/18 04:00 100 12/16/18 22:29 Room Air I&O- Last 24 Hours up to 6 AM 12/22/18 06:00 Intake Total 840 ml Output Total 3425 ml Balance -2585 ml Laboratory Data 24H LABS Laboratory Tests 2 12/22/18 05:36: Nucleated Red Blood Cells % (auto) 0.0, Prothrombin Time 18.1H, Prothromb Time International Ratio 1.53, Activated Partial Thromboplast Time 34.6, Anion Gap 9, Glomerular Filtration Rate > 60.0, Blood Urea Nitrogen 19H, Creatinine 0.93, Sodium Level 129L, Potassium Level 3.3L, Chloride Level 97L, Carbon Dioxide Level 23, Calcium Level 8.4L, Aspartate Amino Transf (AST/SGOT) 71H, Alanine Aminotransferase (ALT/SGPT) 56, Alkaline Phosphatase 213H, Total Bilirubin 18.1*H, Total Protein 5.9L, Albumin 2.5L, Albumin/Globulin Ratio 0.74L, Monoscreen NEGATIVE CBC/BMP Laboratory Tests 12/22/18 05:36 Red Blood Count 3.34 L, Mean Corpuscular Volume 90.7, Mean Corpuscular Hemoglobin 32.6, Mean Corpuscular Hemoglobin Concent 36.0, Red Cell Distribution Width 17.6 H, Calcium Level 8.4 L, Aspartate Amino Transf (AST/SGOT) 71 H, Alanine Aminotransferase (ALT/SGPT) 56, Alkaline Phosphatase 213 H, Total Bilirubin 18.1 *H, Total Protein 5.9 L, Albumin 2.5 L VADIM PENG MD Dec 22, 2018 21:12
[2018-12-22 22:00] VITALS: BP 160/96
[2018-12-22 23:00] VITALS: BP 133/99
[2018-12-23] VITALS: BP 133/99
[2018-12-23] MEDS: hydrOXYzine 25 MG TAB PO SCH ×4 (05:39→23:04)
[2018-12-23] MEDS: LACTULOSE 20 GM/30 ML SYRUP UD PO SCH ×3 (05:39→22:00)
[2018-12-23 06:00] VITALS: BP 143/75
[2018-12-23 06:12] LABS: HEMATOCRIT 31.5 % (36.0-47.0); HEMOGLOBIN 11.2 g/dl (12.0-15.5); MEAN CORPUSCULAR HEMOGLOBIN 33.4 pg (27.0-33.0); MEAN CORPUSCULAR HGB CONC 35.6 g/dl (32.0-36.5); PLATELET COUNT, AUTOMATED 107 10^3/uL (150-450); RED BLOOD COUNT 3.35 10^6/uL (4.00-5.40); WHITE BLOOD COUNT 6.9 10^3/uL (4.0-10.0)
[2018-12-23 06:19] LABS: INR 1.51; PROTHROMBIN TIME 17.9 SECONDS (11.8-14.0)
[2018-12-23 06:20] LABS: PARTIAL THROMBOPLASTIN TIME 33.9 SECONDS (25.0-38.4)
[2018-12-23 06:46] LABS: ALBUMIN 2.3 GM/DL (3.2-5.2); ALT/SGPT 55 U/L (12-78); BILIRUBIN,TOTAL 13.9 MG/DL (0.2-1.0); BLOOD UREA NITROGEN 18 MG/DL (7-18); CALCIUM LEVEL 7.8 MG/DL (8.5-10.1); CARBON DIOXIDE LEVEL 21 MEQ/L (21-32); CHLORIDE LEVEL 98 MEQ/L (98-107); CREATININE FOR GFR 0.77 MG/DL (0.55-1.30); GLOMERULAR FILTRATION RATE > 60.0 (>58); GLUCOSE, FASTING 128 MG/DL (70-100); SODIUM LEVEL 128 MEQ/L (136-145); TOTAL PROTEIN 5.8 GM/DL (6.4-8.2)
[2018-12-23] MEDS: POTASSIUM CHLORIDE 10% LIQ 20 MEQ/15 ML UDC PO SCH ×3 (08:19→21:02)
[2018-12-23] MEDS: CHOLESTYRAMINE 4 GM PWD PKT PO SCH ×4 (08:19→21:02)
[2018-12-23] MEDS: predniSONE 20 MG TAB PO SCH (08:20)
[2018-12-23] MEDS: PHYTONADIONE 5 MG TAB PO SCH (08:20)
[2018-12-23] MEDS: MULTIVITAMINS/MINERALS THERAP 1 TAB PO SCH (08:20)
[2018-12-23] MEDS: PANTOPRAZOLE 40MG TAB (PROTONIX) PO SCH (08:20)
[2018-12-23] MEDS: SPIRONOLACTONE 50 MG TAB PO SCH (08:20)
[2018-12-23] MEDS: SERTRALINE HCL 25 MG TABLET PO SCH (08:20)
[2018-12-23] MEDS: THIAMINE HCL 200 MG/2 ML VIAL (J3411) IV SCH (08:21)
[2018-12-23] MEDS: FUROSEMIDE 20 MG/2 ML VIAL (J1940) IV SCH ×2 (08:21→17:01)
[2018-12-23] MEDS: oxyCODONE 5MG TAB PO PRN ×3 (08:23→23:04)
[2018-12-23 14:00] VITALS: BP 138/99
[2018-12-23 14:34] LABS: CYTOMEGALOVIRUS IgM ANTIBODY <30.0 AU/mL (0.0-29.9); EBV VIRAL CAPSID AG IgM <36.0 U/mL (0.0-35.9)
[2018-12-23] MEDS: NADOLOL 20MG TABLET PO SCH (15:39)
--- NOTE | 2018-12-23 19:35 | IPNPDOC ---
Date Seen The patient was seen on 12/23/18. Progress Note SUBJECTIVE: Patient reported overall feeling better. Jaundice appear to be improving but still icteric. Bilirubin 18->13 today. Afebrile overnight. OBJECTIVE PHYSICAL EXAMINATION: VITAL SIGNS: Please see below. General: No acute distress, Alert, anxious. jaundice Eyes: Icteric, EOMI, ISAAC HENT: Atraumatic, neck supple, moist mucous membranes Cardiovascular: Normal rate, normal rhythm. No murmurs appreciated. Pulmonary: Clear to auscultation b/l, no wheezing GI: Soft, nontender, nondistended Skin: Warm and dry Neuro: CN grossly intact. No focal deficits. Strengths equal b/l. Psych: oriented x 3 LABORATORY DATA, IMAGING STUDIES, MICROBIOLOGY: Please see below. ASSESSMENT AND PLAN: 1. Acute alcoholic hepatitis and decompensated liver cirrhosis with history of esophageal varices and portal gastropathy - elevated bilirubin, coagulopathy and ascites. - Encourage alcohol cessation. - Spoke Dr. Laurita Shelton in [place]. - Does not recommend transfer at this but recommended: 5 days of high dose IV thiamine 500 mg, then 100 mg PO daily, prednisone 40 mg daily for 4 weeks total, daily LFT and coags monitoring, vitamin K 10 mg daily. Diurese with aldactone and spironolactone. If hypotensive, can max Midodrine up to 12.5mg TID. - lactulose held, NH3 now back at normal. - Can follow up with her post discharge as outpatient. 2. Hepatic encephalopathy - due to elevated NH3 from liver cirrhosis. - Resolved. 3. Alcohol abuse - Serax to prevent withdraw - c/w thiamine and folate. VS, I&O, 24H, Fishbone Vital Signs/I&O Vital Signs Date Time Temp Pulse Resp B/P (MAP) Pulse Ox O2 Delivery O2 Flow Rate FiO2 12/23/18 15:39 72 148/90 12/23/18 14:48 18 12/23/18 14:18 97.5 97 2.0 100 I&O- Last 24 Hours up to 6 AM 12/23/18 05:59 Intake Total 450 ml Output Total 1600 ml Balance -1150 ml Laboratory Data 24H LABS Laboratory Tests 2 12/23/18 05:39: Nucleated Red Blood Cells % (auto) 0.0, Prothrombin Time 17.9H, Prothromb Time International Ratio 1.51, Activated Partial Thromboplast Time 33.9, Anion Gap 9, Glomerular Filtration Rate > 60.0, Blood Urea Nitrogen 18, Creatinine 0.77, Sodium Level 128L, Potassium Level 4.0#, Chloride Level 98, Carbon Dioxide Level 21, Calcium Level 7.8L, Aspartate Amino Transf (AST/SGOT) 74H, Alanine Aminotransferase (ALT/SGPT) 55, Alkaline Phosphatase 203H, Total Bilirubin 13.9H, Total Protein 5.8L, Albumin 2.3L, Albumin/Globulin Ratio 0.66L CBC/BMP Laboratory Tests 12/23/18 05:39 Red Blood Count 3.35 L, Mean Corpuscular Volume 94.0, Mean Corpuscular Hemoglobin 33.4 H, Mean Corpuscular Hemoglobin Concent 35.6, Red Cell Distribution Width 17.2 H, Calcium Level 7.8 L, Aspartate Amino Transf (AST/SGOT) 74 H, Alanine Aminotransferase (ALT/SGPT) 55, Alkaline Phosphatase 203 H, Total Bilirubin 13.9 H, Total Protein 5.8 L, Albumin 2.3 L VADIM PENG MD Dec 23, 2018 19:35
[2018-12-23 22:00] VITALS: BP 139/77
[2018-12-24 06:00] VITALS: BP 128/78
[2018-12-24 06:29] LABS: HEMATOCRIT 36.5 % (36.0-47.0); HEMOGLOBIN 12.6 g/dl (12.0-15.5); MEAN CORPUSCULAR HEMOGLOBIN 32.8 pg (27.0-33.0); MEAN CORPUSCULAR HGB CONC 34.5 g/dl (32.0-36.5); MEAN CORPUSCULAR VOLUME 95.1 fl (80.0-96.0); PLATELET COUNT, AUTOMATED 177 10^3/uL (150-450); RED BLOOD COUNT 3.84 10^6/uL (4.00-5.40); WHITE BLOOD COUNT 10.3 10^3/uL (4.0-10.0)
[2018-12-24 06:44] LABS: INR 1.49; PROTHROMBIN TIME 17.7 SECONDS (11.8-14.0)
[2018-12-24 06:45] LABS: PARTIAL THROMBOPLASTIN TIME 32.1 SECONDS (25.0-38.4)
[2018-12-24] MEDS ORDERED: ONDANSETRON 4 MG ORAL DISINTEGRATING TAB (Q0162 PER 1MG) PO PRN (06:45)
[2018-12-24] MEDS: LACTULOSE 20 GM/30 ML SYRUP UD PO SCH ×3 (06:56→20:14)
[2018-12-24] MEDS: hydrOXYzine 25 MG TAB PO SCH ×4 (06:56→23:19)
[2018-12-24 07:17] LABS: ALBUMIN 2.7 GM/DL (3.2-5.2); ALT/SGPT 71 U/L (12-78); BILIRUBIN,TOTAL 13.3 MG/DL (0.2-1.0); BLOOD UREA NITROGEN 18 MG/DL (7-18); CALCIUM LEVEL 8.1 MG/DL (8.5-10.1); CARBON DIOXIDE LEVEL 21 MEQ/L (21-32); CHLORIDE LEVEL 101 MEQ/L (98-107); CREATININE FOR GFR 0.78 MG/DL (0.55-1.30); GLOMERULAR FILTRATION RATE > 60.0 (>58); GLUCOSE, FASTING 117 MG/DL (70-100); POTASSIUM SERUM 4.8 MEQ/L (3.5-5.1); SODIUM LEVEL 129 MEQ/L (136-145); TOTAL PROTEIN 6.3 GM/DL (6.4-8.2)
[2018-12-24] MEDS: predniSONE 20 MG TAB PO SCH (08:03)
[2018-12-24] MEDS: CHOLESTYRAMINE 4 GM PWD PKT PO SCH ×4 (08:03→21:20)
[2018-12-24] MEDS: PHYTONADIONE 5 MG TAB PO SCH (08:04)
[2018-12-24] MEDS: MULTIVITAMINS/MINERALS THERAP 1 TAB PO SCH (08:05)
[2018-12-24] MEDS: SERTRALINE HCL 25 MG TABLET PO SCH (08:05)
[2018-12-24] MEDS: NADOLOL 20MG TABLET PO SCH (08:05)
[2018-12-24] MEDS: SPIRONOLACTONE 50 MG TAB PO SCH (08:05)
[2018-12-24] MEDS: THIAMINE HCL 200 MG/2 ML VIAL (J3411) IV SCH (08:06)
[2018-12-24] MEDS: PANTOPRAZOLE 40MG TAB (PROTONIX) PO SCH (08:06)
[2018-12-24] MEDS: POTASSIUM CHLORIDE 10% LIQ 20 MEQ/15 ML UDC PO SCH ×2 (08:06→15:57)
[2018-12-24] MEDS: FUROSEMIDE 20 MG/2 ML VIAL (J1940) IV SCH ×2 (08:06→17:13)
[2018-12-24] MEDS ORDERED: PROMETHAZINE INJ 25 MG/ML VIAL (J2550) IV PRN (08:30)
[2018-12-24 14:00] VITALS: BP 150/70
--- NOTE | 2018-12-24 14:39 | IPNPDOC ---
Date Seen The patient was seen on 12/24/18. Progress Note SUBJECTIVE: Patient was nauseous in AM, stated likely because she was taking too many medications at once. Had improved since then and reported feeling much more comfortable. Afebrile overnight. OBJECTIVE PHYSICAL EXAMINATION: VITAL SIGNS: Please see below. General: No acute distress, Alert, anxious. jaundice Eyes: Icteric, EOMI, ISAAC HENT: Atraumatic, neck supple, moist mucous membranes Cardiovascular: Normal rate, normal rhythm. No murmurs appreciated. Pulmonary: Clear to auscultation b/l, no wheezing GI: Soft, nontender, nondistended Skin: Warm and dry Neuro: CN grossly intact. No focal deficits. Strengths equal b/l. Psych: oriented x 3 LABORATORY DATA, IMAGING STUDIES, MICROBIOLOGY: Please see below. ASSESSMENT AND PLAN: 1. Acute alcoholic hepatitis and decompensated liver cirrhosis with history of esophageal varices and portal gastropathy - elevated bilirubin, coagulopathy and ascites. - Encourage alcohol cessation. - Spoke Dr. Laurita Shelton in [place]. - Does not recommend transfer at this but recommended: 5 days of high dose IV thiamine 500 mg, then 100 mg PO daily, prednisone 40 mg daily for 4 weeks total, daily LFT and coags monitoring, vitamin K 10 mg daily. Diurese with aldactone and spironolactone. If hypotensive, can max Midodrine up to 12.5mg TID. - lactulose held, NH3 now back at normal. - Can follow up with her post discharge as outpatient. - Clinically improving, plan tentatively for discharge in the next 48 hours. 2. Hepatic encephalopathy - due to elevated NH3 from liver cirrhosis. - Resolved. 3. Alcohol abuse - Serax to prevent withdraw - c/w thiamine and folate. VS, I&O, 24H, Fishbone Vital Signs/I&O Vital Signs Date Time Temp Pulse Resp B/P (MAP) Pulse Ox O2 Delivery O2 Flow Rate FiO2 12/24/18 08:05 77 123/73 12/24/18 06:00 97.0 20 100 12/23/18 14:18 2.0 100 I&O- Last 24 Hours up to 6 AM 12/24/18 06:00 Intake Total 2010 ml Output Total 1750 ml Balance 260 ml Laboratory Data 24H LABS Laboratory Tests 2 12/24/18 05:44: Nucleated Red Blood Cells % (auto) 0.0, Prothrombin Time 17.7H, Prothromb Time International Ratio 1.49, Activated Partial Thromboplast Time 32.1, Anion Gap 7L, Glomerular Filtration Rate > 60.0, Blood Urea Nitrogen 18, Creatinine 0.78, Sodium Level 129L, Potassium Level 4.8, Chloride Level 101, Carbon Dioxide Level 21, Calcium Level 8.1L, Aspartate Amino Transf (AST/SGOT) 106H, Alanine Aminotransferase (ALT/SGPT) 71, Alkaline Phosphatase 220H, Total Bilirubin 13.3H, Total Protein 6.3L, Albumin 2.7L, Albumin/Globulin Ratio 0.75L CBC/BMP Laboratory Tests 12/24/18 05:44 Red Blood Count 3.84 L, Mean Corpuscular Volume 95.1, Mean Corpuscular Hemoglobin 32.8, Mean Corpuscular Hemoglobin Concent 34.5, Red Cell Distribution Width 17.7 H, Calcium Level 8.1 L, Aspartate Amino Transf (AST/SGOT) 106 H, Alanine Aminotransferase (ALT/SGPT) 71, Alkaline Phosphatase 220 H, Total Bilirubin 13.3 H, Total Protein 6.3 L, Albumin 2.7 L VADIM PENG MD Dec 24, 2018 14:39
[2018-12-24] MEDS: oxyCODONE 5MG TAB PO PRN (21:20)
[2018-12-24 22:00] VITALS: BP 153/85
[2018-12-25 06:00] VITALS: BP 124/74
[2018-12-25 06:07] LABS: HEMATOCRIT 34.8 % (36.0-47.0); HEMOGLOBIN 12.2 g/dl (12.0-15.5); MEAN CORPUSCULAR HGB CONC 35.1 g/dl (32.0-36.5); MEAN CORPUSCULAR VOLUME 94.1 fl (80.0-96.0); PLATELET COUNT, AUTOMATED 186 10^3/uL (150-450); WHITE BLOOD COUNT 11.1 10^3/uL (4.0-10.0)
[2018-12-25 06:22] LABS: INR 1.51; PROTHROMBIN TIME 17.9 SECONDS (11.8-14.0)
[2018-12-25 06:23] LABS: PARTIAL THROMBOPLASTIN TIME 31.9 SECONDS (25.0-38.4)
[2018-12-25] MEDS: hydrOXYzine 25 MG TAB PO SCH ×2 (06:25→11:37)
[2018-12-25] MEDS: LACTULOSE 20 GM/30 ML SYRUP UD PO SCH (06:25)
[2018-12-25 06:32] LABS: ALBUMIN 2.4 GM/DL (3.2-5.2); ALT/SGPT 79 U/L (12-78); BILIRUBIN,TOTAL 12.5 MG/DL (0.2-1.0); BLOOD UREA NITROGEN 20 MG/DL (7-18); CALCIUM LEVEL 8.4 MG/DL (8.5-10.1); CARBON DIOXIDE LEVEL 19 MEQ/L (21-32); CHLORIDE LEVEL 102 MEQ/L (98-107); CREATININE FOR GFR 0.84 MG/DL (0.55-1.30); GLOMERULAR FILTRATION RATE > 60.0 (>58); GLUCOSE, FASTING 125 MG/DL (70-100); POTASSIUM SERUM 3.8 MEQ/L (3.5-5.1); SODIUM LEVEL 130 MEQ/L (136-145); TOTAL PROTEIN 6.3 GM/DL (6.4-8.2)
[2018-12-25] MEDS: PHYTONADIONE 5 MG TAB PO SCH (07:48)
[2018-12-25] MEDS: MULTIVITAMINS/MINERALS THERAP 1 TAB PO SCH (07:48)
[2018-12-25] MEDS: CHOLESTYRAMINE 4 GM PWD PKT PO SCH ×2 (07:48→11:36)
[2018-12-25] MEDS: SPIRONOLACTONE 50 MG TAB PO SCH (07:49)
[2018-12-25] MEDS: predniSONE 20 MG TAB PO SCH (07:49)
[2018-12-25] MEDS: PANTOPRAZOLE 40MG TAB (PROTONIX) PO SCH (07:49)
[2018-12-25] MEDS: SERTRALINE HCL 25 MG TABLET PO SCH (07:49)
[2018-12-25 07:50] VITALS: BP 124/74
[2018-12-25] MEDS: NADOLOL 20MG TABLET PO SCH (07:50)
[2018-12-25] MEDS: THIAMINE HCL 200 MG/2 ML VIAL (J3411) IV SCH (07:50)
[2018-12-25] MEDS: FUROSEMIDE 20 MG/2 ML VIAL (J1940) IV SCH (07:50)
[2018-12-25] MEDS ORDERED: ONDA4TAB6 PO (11:32)
[2018-12-25] MEDS ORDERED: CHOL4PW PO (11:32)
[2018-12-25] MEDS ORDERED: Lactulose Syrup PO (11:32)
[2018-12-25] MEDS ORDERED: OXYCO5TA PO (11:32)
[2018-12-25] MEDS ORDERED: PRED20TA PO (11:32)
[2018-12-25] MEDS ORDERED: VITMTA PO (11:32)
[2018-12-25] MEDS ORDERED: POTA10PO PO (11:35)
--- NOTE | 2018-12-25 11:54 | DS.PDOC ---
Discharge Summary General Date of Admission Dec 16, 2018 at 19:40 Date of Discharge 12/25/18 Discharge Summary PROCEDURES PERFORMED DURING STAY: [None]. ADMITTING DIAGNOSES: 1. Hepatic encephalopathy 2. Alcoholic liver cirrhosis 3. Alcohol abuse 4. Hypokalemia 5. Thrombocytopenia 6. elevated INR 7. Anxiety 8. Hyponatremia DISCHARGE DIAGNOSES: 1. Hepatic encephalopathy 2. Alcoholic liver cirrhosis 3. Alcohol abuse 4. Hypokalemia 5. Thrombocytopenia 6. elevated INR 7. Anxiety 8. Hyponatremia COMPLICATIONS/CHIEF COMPLAINT: Hepatic Encephalopathy. HISTORY OF PRESENT ILLNESS: "Patient is a 43-year-old female with known history of alcohol abuse she has been attempting to wean herself from alcohol over the last several days but was becoming confused and was brought into the emergency room by family secondary to the concern for her confusion. At the time of my exam the patient is awake she is oriented to person sheis in the hospital she can tell me the day of the week the month but not the year. She is quite slow to respond and unable to provide much of the history and as such much of it is obtained from the ER provider reviewed the medical record in addition to speaking directly with the patient. Patient denies any pain but does complain of feeling groggy weak and tired. She doesn't her last drink was yesterday. She doesn't she drinks one bottle of alcohol per day vodka.. Otherwise patient denies weight loss, hair loss, headache, visual changes, chest pain, shortness of breath, cough, nausea, vomiting, diarrhea, abdominal pain, muscle aches, worsening arthritis, change in mood" HOSPITAL COURSE: Patient was treated with Rifaximin, lactulose, and prednisone with improvement of symptoms as well as decrease in total bilirubin. AMS/confusion resolved with NH3 returning back to baseline from 80. Total bilirubin were up to 20 and has now gone down to 12.5 with significant improvement in jaundice and icterus. She was evaluated by GI who recommended transfer to [facility] for inpatient treatment and Dr. Laurita Shelton in [place] were contacted. Does not think that patient needs an inpatient transfer at [facility] that she can be followed as outpatient post discharge. Since symptoms continues to improve and patient is doing well on Prednisone, will continue its course for a total of 4 weeks. To discharge patient home to follow up with PMD (try to establish) as well as Dr. Shelton or someone in her group for follow up and further management. Patient was previously on liver transplant list but had been taken off of it due to alcohol relapse, wishing to be placed again. Also noted to be hyponatremic through entire course of hospitalization. Likely chronic in nature and suspected hypovolemic 2/2 dehydration and heavy alcohol use. Has been stable and currently >130 and asymptomatic. Would consider cutting down on diuretics in the future if Na persistently low. DISCHARGE MEDICATIONS: Please see below. ALLERGIES: Please see below. PHYSICAL EXAMINATION ON DISCHARGE: VITAL SIGNS: Please see below. General: No acute distress, Alert, anxious. improving jaundice Eyes: Icteric, EOMI, ISAAC HENT: Atraumatic, neck supple, moist mucous membranes Cardiovascular: Normal rate, normal rhythm. No murmurs appreciated. Pulmonary: Clear to auscultation b/l, no wheezing GI: Soft, nontender, nondistended Skin: Warm and dry Neuro: CN grossly intact. No focal deficits. Strengths equal b/l. Psych: oriented x 3 LABORATORY DATA: Please see below. IMAGING: CXR- Impression: Negative portable chest. Abdominal US- Abdominal ultrasound for ascites evaluation : All four quadrants of the abdomen are evaluated. There is a trace of ascites in the right upper quadrant. The quantity of ascites is insufficient for percutaneous drainage. Abdomen MRI- Impression: 1. Nondiagnostic as MRCP 2. The gallbladder is partially contracted and without obvious gallstones and no obvious biliary ductal dilatation is appreciated. 3. Cirrhosis and portal hypertension. Liver Doppler- Impression: 1. Coarsened hepatic echotexture consistent with the given history of cirrhosis. Evidence for portal vein hypertension including recanalized umbilical vein. 2. No evidence for portal vein thrombosis. 3. Contracted gallbladder with possible cholelithiasis. 4. Doppler interrogation demonstrates normal flow characteristics. ACTIVITY: [As tolerated]. DIET: Regular diet DISCHARGE PLAN: Complete course of Prednisone f/u with PMD and [facility] as soon as possible. DISPOSITION: Home. DISCHARGE INSTRUCTIONS: Complete course of Prednisone f/u with PMD and [facility] as soon as possible. ITEMS TO FOLLOWUP ON ON OUTPATIENT: 1. None DISCHARGE CONDITION: [Stable]. TIME SPENT ON DISCHARGE: 40 minutes. Vital Signs/I&Os Vital Signs Date Time Temp Pulse Resp B/P (MAP) Pulse Ox O2 Delivery O2 Flow Rate FiO2 12/25/18 07:50 68 124/74 12/25/18 06:00 97.0 18 98 12/23/18 14:18 2.0 100 I&O- Last 24 Hours up to 6 AM 12/25/18 06:00 Intake Total 1800 ml Output Total 1700 ml Balance 100 ml Laboratory Data Labs 24H Laboratory Tests 2 12/25/18 05:35: Nucleated Red Blood Cells % (auto) 0.0, Prothrombin Time 17.9H, Prothromb Time International Ratio 1.51, Activated Partial Thromboplast Time 31.9, Anion Gap 9, Glomerular Filtration Rate > 60.0, Blood Urea Nitrogen 20H, Creatinine 0.84, Sodium Level 130L, Potassium Level 3.8#, Chloride Level 102, Carbon Dioxide Level 19L, Calcium Level 8.4L, Aspartate Amino Transf (AST/SGOT) 101H, Alanine Aminotransferase (ALT/SGPT) 79H, Alkaline Phosphatase 220H, Total Bilirubin 12.5H, Total Protein 6.3L, Albumin 2.4L, Albumin/Globulin Ratio 0.62L CBC/BMP Laboratory Tests 12/25/18 05:35 Red Blood Count 3.70 L, Mean Corpuscular Volume 94.1, Mean Corpuscular Hemoglobin 33.0, Mean Corpuscular Hemoglobin Concent 35.1, Red Cell Distribution Width 17.2 H, Calcium Level 8.4 L, Aspartate Amino Transf (AST/SGOT) 101 H, Alanine Aminotransferase (ALT/SGPT) 79 H, Alkaline Phosphatase 220 H, Total Bilirubin 12.5 H, Total Protein 6.3 L, Albumin 2.4 L Discharge Medications Scheduled Cholestyramine (Cholestyramine Packet) 4 Gm Powd.pack, 4 GM PO ACHS Furosemide (Furosemide) 20 Mg Tablet, 20 MG PO TID, (Reported) Hydroxyzine Pamoate (Hydroxyzine Pamoate) 25 Mg Capsule, 25 MG PO QHS, (Re ported) Multivitamins (Thera M Plus Tablet) 1 Each Tablet, 1 TAB PO DAILY Nadolol (Nadolol) 20 Mg Tab, 20 MG PO DAILY, (Reported) Pantoprazole Sodium (Pantoprazole Sodium) 40 Mg Tab, 40 MG PO DAILY, (Reported) Potassium Chloride (Potassium Chloride Powder) 20 Meq Packet, 20 MEQ PO Q48H Prednisone (Prednisone) 20 Mg Tablet, 40 MG PO DAILY Sertraline HCl (Sertraline HCl) 25 Mg Tablet, 25 MG PO DAILY, (Reported) Spironolactone (Spironolactone) 100 Mg Tab, 100 MG PO BID, (Reported) Scheduled PRN Alprazolam (Xanax) 0.25 Mg Tab, 0.25 MG PO TID PRN for ANXIETY, (Reported) Bisacodyl (Dulcolax) 5 Mg Tablet.dr, 5 MG PO BID PRN for CONSTIPATION, (Reported) Fluticasone Propionate (Flonase Allergy Relief) 9.9 Ml [place].susp, 2 SPRAY NA DAILY PRN for ALLERIGES, (Reported) Ondansetron (Ondansetron Odt) 4 Mg Tab.rapdis, 4 MG PO Q8HP PRN for NAUSEA OR VOMITING Oxycodone HCl (Oxycodone HCl) 5 Mg Tablet, 5 MG PO Q6HP PRN for PAIN [Lactulose Syrup] 30 ML SYRP, 30 ML PO Q8HP PRN for CONSTIPATION PRN confusion/AMS Allergies Coded Allergies: acetaminophen (Verified Adverse Reaction, Unknown, vomit, 12/16/18) VADIM PENG MD Dec 25, 2018 11:54
[2018-12-25] MEDS ORDERED: HYDR1CAP25 PO (14:12)
== END 2018-12-25 13:22 | disposition home or self-care (01) | DRG 279 ==
LOC: M ED 17:32 → M ED INP 19:40 → M ICU 22:46 → M MSPAV 12-18 14:09
PROVIDERS: ADMIT Internal Medicine; ATTEND Student in an Organized Health Care Education/Training Program
DX: K72.00 Acute and subacute hepatic failure without coma (principal); D68.4 Acquired coagulation factor deficiency; I85.10 Secondary esophageal varices without bleeding; D69.59 Other secondary thrombocytopenia; E83.42 Hypomagnesemia; K76.6 Portal hypertension; K70.11 Alcoholic hepatitis with ascites; D64.9 Anemia, unspecified; K70.31 Alcoholic cirrhosis of liver with ascites; K21.9 Gastro-esophageal reflux disease without esophagitis; I10 Essential (primary) hypertension; F41.1 Generalized anxiety disorder; E87.6 Hypokalemia; F10.20 Alcohol dependence, uncomplicated; L29.9 Pruritus, unspecified; K31.89 Other diseases of stomach and duodenum; Z79.899 Other long term (current) drug therapy; Z88.8 Allergy status to other drugs, medicaments and biological substances

== ENCOUNTER → 2019-01-05 | Outpatient (REF) | payer BC ==
[~2019-01-05] MED LIST changes: +CHOL4PW PO; +DULC5TAB PO; +FLON1SPR; +FURO20TA2 PO; +HYDR1CAP25 PO; +Lactulose Syrup PO; +ONDA4TAB6 PO; +OXYCO5TA PO; +POTA10PO PO; +PRED20TA PO; +SERT25TA88 PO; +VITMTA PO
[2019-01-05 17:13] LABS: BASO % 0.1 % (0.0-1.0); EOS % 0.5 % (0.0-3.0); HEMATOCRIT 31.2 % (36.0-47.0); HEMOGLOBIN 10.5 g/dl (12.0-15.5); LYMPH # 0.5 10^3/uL (1.5-4.5); LYMPH % 6.5 % (24.0-44.0); MEAN CORPUSCULAR HEMOGLOBIN 33.9 pg (27.0-33.0); MEAN CORPUSCULAR HGB CONC 33.7 g/dl (32.0-36.5); MEAN CORPUSCULAR VOLUME 100.6 fl (80.0-96.0); MONO # 0.3 10^3/uL (0.0-0.8); NEUTROPHILS # 7.2 10^3/uL (1.8-7.7); NEUTROPHILS % 87.9 % (36.0-66.0); PLATELET COUNT, AUTOMATED 160 10^3/uL (150-450); WHITE BLOOD COUNT 8.2 10^3/uL (4.0-10.0)
[2019-01-05 17:35] LABS: ALBUMIN 2.5 GM/DL (3.2-5.2); ALT/SGPT 107 U/L (12-78); BLOOD UREA NITROGEN 8 MG/DL (7-18); CALCIUM LEVEL 8.5 MG/DL (8.5-10.1); CARBON DIOXIDE LEVEL 20 MEQ/L (21-32); CHLORIDE LEVEL 102 MEQ/L (98-107); GLOMERULAR FILTRATION RATE > 60.0 (>58); GLUCOSE, FASTING 324 MG/DL (70-100); INR 1.54; POTASSIUM SERUM 3.6 MEQ/L (3.5-5.1); PROTHROMBIN TIME 18.2 SECONDS (11.8-14.0); SODIUM LEVEL 133 MEQ/L (136-145)
== END ==
LOC: M SFHCPLAZ 15:44
PROVIDERS: ATTEND Physician Assistant Medical
DX: E87.6 Hypokalemia (principal); D69.6 Thrombocytopenia, unspecified; R79.1 Abnormal coagulation profile

== ENCOUNTER 2019-02-08 20:49 | Inpatient (IN) | payer BC ==
[~2019-02-08] VITALS: Ht 157.5 cm; Wt 63.0 kg
[~2019-02-08 20:49] MED LIST changes: -ACAM0.05 PO; -ALPR0.25 PO; -ANUS25SU PR; -HYDR25SU23 PR; -LACT10SO29 PO; -POTA20PW PO; +SERT25TA21 PO; -SERT25TA88 PO; -VIST25CA PO; -XIFA200T2 PO
[2019-02-08] MEDS ORDERED: LACT10SO29 PO (21:20)
[2019-02-08] MEDS ORDERED: ANUS25SU PR (21:20)
[2019-02-08] MEDS ORDERED: FURO20TA2 PO ×2 (21:20→22:53)
[2019-02-08] MEDS ORDERED: ACAM0.05 PO ×2 (21:20→22:53)
[2019-02-08] MEDS ORDERED: XIFA200T2 PO (21:28)
[2019-02-08] MEDS ORDERED: KLOR20TA42 PO (21:28)
[2019-02-08] MEDS ORDERED: PANTOPRAZOLE 40MG INJ (PROTONIX) (C9113) IV ONE (21:30)
[2019-02-08] MEDS ORDERED: PANTOPRAZOLE SODIUM 40 MG in D5W 50 ML IV SCH (21:30)
[2019-02-08 21:37] LABS: BASO % 0.6 % (0.0-1.0); EOS # 0.4 10^3/uL (0.0-0.50); EOS % 7.7 % (0.0-3.0); HEMATOCRIT 20.1 % (36.0-47.0); LYMPH # 1.1 10^3/uL (1.5-4.5); LYMPH % 23.2 % (24.0-44.0); MEAN CORPUSCULAR HGB CONC 30.3 g/dl (32.0-36.5); MEAN CORPUSCULAR VOLUME 88.9 fl (80.0-96.0); MONO # 0.6 10^3/uL (0.0-0.8); MONO % 12.1 % (0.0-5.0); NEUTROPHILS # 2.7 10^3/uL (1.8-7.7); NEUTROPHILS % 55.8 % (36.0-66.0); PLATELET COUNT, AUTOMATED 150 10^3/uL (150-450); RED BLOOD COUNT 2.26 10^6/uL (4.00-5.40); WHITE BLOOD COUNT 4.8 10^3/uL (4.0-10.0)
[2019-02-08 21:40] LABS: INR 1.5; PROTHROMBIN TIME 17.8 SECONDS (11.8-14.0)
[2019-02-08 21:41] LABS: PARTIAL THROMBOPLASTIN TIME 34.4 SECONDS (25.0-38.4)
[2019-02-08 21:47] LABS: HEMOGLOBIN 6.1 g/dl (12.0-15.5)
[2019-02-08 21:50] LABS: ALBUMIN 2.6 GM/DL (3.2-5.2); ALT/SGPT 36 U/L (12-78); BILIRUBIN,DIRECT 1.3 MG/DL (0.0-0.2); BILIRUBIN,TOTAL 1.5 MG/DL (0.2-1.0); BLOOD UREA NITROGEN 4 MG/DL (7-18); CALCIUM LEVEL 7.6 MG/DL (8.5-10.1); CARBON DIOXIDE LEVEL 18 MEQ/L (21-32); CHLORIDE LEVEL 109 MEQ/L (98-107); CREATININE FOR GFR 0.98 MG/DL (0.55-1.30); ETHYL ALCOHOL (ETHANOL) < 0.003 % (0.000-0.010); GLOMERULAR FILTRATION RATE > 60.0 (>58); GLUCOSE, FASTING 147 MG/DL (70-100); LIPASE 186 U/L (73-393); POTASSIUM SERUM 2.9 MEQ/L (3.5-5.1); SODIUM LEVEL 138 MEQ/L (136-145); TOTAL PROTEIN 5.7 GM/DL (6.4-8.2)
[2019-02-08] MEDS ORDERED: HYDR25SU23 PR (22:53)
[2019-02-08] MEDS ORDERED: CHOL4PW PO (22:53)
[2019-02-08] MEDS ORDERED: ALPR0.25 PO (22:53)
[2019-02-08] MEDS ORDERED: VITMTA PO (22:53)
[2019-02-08] MEDS ORDERED: VIST25CA PO (22:53)
[2019-02-08] MEDS ORDERED: POTA20PW PO (22:53)
[2019-02-08] MEDS ORDERED: ISOVUE-370 76% 100ML VIAL (Q9967) As Ordered ONE (23:09)
[2019-02-08] MEDS ORDERED: ALPRAZolam 0.25 MG TAB PO PRN (23:15)
[2019-02-08] MEDS: KCL 10MEQ/100ML SWI (KRUN) 10 MEQ in IV 1 EA IV SCH (23:52)
[2019-02-09] VITALS (29 sets, daily range): BP systolic 95–124; BP diastolic 51–73
--- NOTE | 2019-02-09 00:05 | HPEPDOC ---
General Date of Admission Feb 08, 2019 at 23:06 Date of Service: Feb 08, 2019 Chief Complaint The patient is a 43-year-old female admitted with a reason for visit of Cirrhosis Of Liver,Gi Bleed. History of Present Illness 43f hx of etoh cirrhosis, abstinent for nearly two months, hepatic encephal opathy, recent admission to an outside hospital for right leg cellulitis, noted to have rectal bleeding for nearly a week, reports had egd and colonoscopy with no significant findings except polyps and hemorrhoids. She reports the bleeding had stopped when she was discharged, but began again 3 days ago. She reports pain on defecating that seems to correlate with when she is bleeding. The stools are pure blood described as dark red and occurring up to 8x per day. They occur with urgency and she has been unable to make it to the toilet at times. She also describes severe fatigue and dyspnea on exertion. She reports when she left the other hospital her hemoglobin was around 6. A full ROS was performed and negative except as above Home Medications Scheduled Acamprosate Calcium (Acamprosate Calcium) 333 Mg Tablet.dr, 333 MG PO TID, (Rep orted) Cholestyramine (Cholestyramine Packet) 4 Gm Powd.pack, 4 GM PO ACHS, (Reported) Furosemide (Furosemide) 20 Mg Tablet, 20 MG PO BID, (Reported) Hydrocortisone Acetate (Hydrocortisone Acetate) 25 Mg Supp.rect, 25 MG [place] BID, (Reported) Hydroxyzine Pamoate (Vistaril) 25 Mg Capsule, 25 MG PO QHS, (Reported) Lactulose (Lactulose) 10 Gm/15 Ml Solution, 30 ML PO TID, (Reported) Multivitamins (Thera M Plus Tablet) 1 Each Tablet, 1 TAB PO DAILY, (Reported) Nadolol (Nadolol) 20 Mg Tab, 20 MG PO DAILY, (Reported) Pantoprazole Sodium (Pantoprazole Sodium) 40 Mg Tab, 40 MG PO DAILY, (Reported) Potassium Chloride (Potassium Chloride) 20 Meq Packet, 20 MEQ PO BID, (Reported) Sertraline HCl (Sertraline HCl) 25 Mg Tablet, 25 MG PO DAILY, (Reported) Spironolactone (Spironolactone) 100 Mg Tab, 100 MG PO BID, (Reported) Scheduled PRN Alprazolam (Alprazolam) 0.25 Mg Tablet, 0.25 MG PO TID PRN for ANXIETY, (Reported) Allergies Coded Allergies: acetaminophen (Verified Adverse Reaction, Unknown, vomit, 12/16/18) buspirone (Verified Adverse Reaction, Unknown, nausea, vomiting, 02/08/19) Past Medical History Medical History etoh, cirrhosis, encephalopathy, varices Surgical History breast augmentation, liposuction Family History Significant Family History: No pertinent family hx Social History * Smoker: Denies Alcohol: other (recently quit) Drugs: denies A-FIB/CHADSVASC A-FIB History Current/History of A-Fib/PAF?: No Current PO Anticoag Therapy: No Age/Risk Factor Scoring CHADSVASC: CHADSVASC Response (Comments) Value Age Risk Factor Age < 65 years old 0 Gender Risk Factor Female 1 Hx of CHF No 0 Hx of HTN No 0 Hx of Stroke/TIA/or VTE No 0 Hx of Diabetes No 0 Hx of Vascular Disease No 0 Total 1 Treatment Treatment ordered: NONE Reason Anticoagulant not given: Not indicated/[id number] Physical Examination General Exam: Positive: Alert, Cooperative, No Acute Distress Eye Exam: Positive: PERRLA, Conjunctiva & lids normal, EOMI; Negative: Sclera icteric ENT Exam: Positive: Atraumatic, Mucous membr. moist/pink, Pharynx Normal Neck Exam: Positive: Supple; Negative: JVD, thyromegaly Chest Exam: Positive: Clear to auscultation, Normal air movement Heart Exam: Positive: Rate Normal, Regular Rhythm, Normal S1, Normal S2; Negative: Murmurs, Rubs Abdomen Exam: Positive: Normal bowel sounds, Soft, Tenderness (suprapubic); Negative: Hepatospenomegaly Extremity Exam: Positive: Normal pulses, Other (open wound on medial calf, crusted over); Negative: Clubbing, Cyanosis, Edema Vital Signs Vital Signs Date Time Temp Pulse Resp B/P (MAP) Pulse Ox O2 Delivery O2 Flow Rate FiO2 02/08/19 20:49 98.2 80 18 123/67 (85) 100 Laboratory Data Labs 24H Laboratory Tests 2 02/08/19 21:17: Immature Granulocyte % (Auto) 0.6, White Blood Count 4.8, Red Blood Count 2.26L, Hemoglobin 6.1*L, Hematocrit 20.1L, Mean Corpuscular Volume 88.9, Mean Corpuscular Hemoglobin 27.0, Mean Corpuscular Hemoglobin Concent 30.3L, Red Cell Distribution Width 15.2H, Platelet Count 150, Neutrophils (%) (Auto) 55.8, Lymphocytes (%) (Auto) 23.2L, Monocytes (%) (Auto) 12.1H, Eosinophils (%) (Auto) 7.7H, Basophils (%) (Auto) 0.6, Neutrophils # (Auto) 2.7, Lymphocytes # (Auto) 1.1L, Monocytes # (Auto) 0.6, Eosinophils # (Auto) 0.4, Basophils # (Auto) 0.0, Nucleated Red Blood Cells % (auto) 0.0, Prothrombin Time 17.8H, Prothromb Time International Ratio 1.50, Activated Partial Thromboplast Time 34.4, Anion Gap 11, Glomerular Filtration Rate > 60.0, Calcium Level 7.6L, Aspartate Amino Transf (AST/SGOT) 57H, Alanine Aminotransferase (ALT/SGPT) 36, Alkaline Phosphatase 177H, Total Bilirubin 1.5H, Direct Bilirubin 1.3H, Total Protein 5.7L, Albumin 2.6L, Albumin/Globulin Ratio 0.84L, Lipase 186, Ethyl Alcohol Level < 0.003 02/08/19 21:30: Ammonia 37H CBC/BMP Laboratory Tests 02/08/19 21:17 Red Blood Count 2.26 L, Mean Corpuscular Volume 88.9, Mean Corpuscular Hemoglobin 27.0, Mean Corpuscular Hemoglobin Concent 30.3 L, Red Cell Distribution Width 15.2 H, Neutrophils (%) (Auto) 55.8, Lymphocytes (%) (Auto) 23.2 L, Monocytes (%) (Auto) 12.1 H, Eosinophils (%) (Auto) 7.7 H, Basophils (%) (Auto) 0.6, Neutrophils # (Auto) 2.7, Lymphocytes # (Auto) 1.1 L, Monocytes # (Auto) 0.6, Eosinophils # (Auto) 0.4, Basophils # (Auto) 0.0 Assessment/Plan 43f p/w anemia and rectal bleeding pt has severe symptomatic anemia and describes frequent bleeding episodes unclear why hemoglobin hasnt seemed to change since the last hospitalization It is possible that it improved and then worsened again or this could be hemorrhoidal bleeding and not severe enough to lower the hgb further No vomiting, nausea or anorexia to suggest upper gi bleed pt is being transfused continue ppi CTA bleeding scan ordered if brisk gi bleeding noted will need intervention tonight gi consulted for am pt currently is stable will observe in pcu hypokalemia repleted will add potassium to maintenance fluids avoid hypotonic solutions given recent hx of hyponatremia cirrhosis hold lasix, spironolactone and nadolol leg wounds prn morphine wound care eval in am Plan / VTE VTE Prophylaxis Ordered?: Yes VTE Exclusion Mechanical Proph: N/A:VTE Prophy Ordered VTE Exclusion Pharmacological: Active Bleeding ANGEL EAGLE MD Feb 09, 2019 00:05
--- NOTE | 2019-02-09 00:50 | REPVR ---
EXAM: CT Angiography Abdomen and Pelvis With Contrast EXAM DATE/TIME: 02/08/2019 11:03 PM CLINICAL HISTORY: 43 years old, female; Abdominal pain; Generalized; Additional info: Bleeding scan TECHNIQUE: Imaging protocol: Axial computed tomographic angiography images of the abdomen and pelvis with intravenous contrast material. Coronal and sagittal reformatted images were created and reviewed. 3D rendering: MIP reconstructed images were created and reviewed. Radiation optimization: All CT scans at this facility use at least one of these dose optimization techniques: automated exposure control; mA and/or kV adjustment per patient size (includes targeted exams where dose is matched to clinical indication); or iterative reconstruction. Contrast material: ISO;Contrast volume: 100 ml;Contrast route: AC; COMPARISON: CT ABD PELVIS W/O CONTRAST 04/10/2018 11:31 PM FINDINGS: Lungs: Linear atelectasis or scarring in the right middle lobe. Mild bibasilar dependent atelectasis. VASCULATURE: Aorta: No aortic aneurysm. No aortic dissection. Celiac trunk and mesenteric arteries: No occlusion or significant stenosis. Renal arteries: No occlusion or significant stenosis. Right iliac arteries: No occlusion or significant stenosis. Left iliac arteries: No occlusion or significant stenosis. Portal Venous System: Portal venous hypertension with recanalized paraumbilical vein. ABDOMEN: Liver: Cirrhosis and confluent hepatic fibrosis. Extensive gastrohepatic ligament and periesophageal varices. Gallbladder and bile ducts: Unremarkable. No calcified stones. No ductal dilation. Pancreas: Unremarkable. No mass. No ductal dilation. Spleen: Splenomegaly. Adrenals: Unremarkable. No mass. Kidneys and ureters: Mild right renal cortical scarring. Stomach and bowel: Hyperattenuating material in the lumen of the gastric fundus likely represents ingested material. Appendix: No evidence of appendicitis. PELVIS: Bladder: Unremarkable. No mass. Reproductive: Intrauterine device in place. 3.3 cm simple appearing left ovarian cyst ABDOMEN and PELVIS: Intraperitoneal space: Small ascites. Bones/joints: No acute fracture. No dislocation. Soft tissues: Small fat-containing umbilical hernia. Lymph nodes: Mild nonspecific retroperitoneal lymphadenopathy. IMPRESSION: No evidence of active gastrointestinal bleeding. Cirrhosis and portal venous hypertension. Small ascites. Electronically signed by: Adrián David On 02/09/2019 00:50:16 AM
[2019-02-09] MEDS: KCL 10MEQ/100ML SWI (KRUN) 10 MEQ in IV 1 EA IV SCH ×2 (01:45→02:53)
[2019-02-09] MEDS: MORPHINE 4 MG/ML 1ML VIAL/SYRINGE (J2270) IV PRN ×6 (02:01→21:44)
[2019-02-09] MEDS: KCL 40MEQ IN D5/NS 1000ML 1,000 ML IV SCH ×2 (04:34→15:10)
[2019-02-09 06:29] LABS: HEMATOCRIT 23.9 % (36.0-47.0); HEMOGLOBIN 7.5 g/dl (12.0-15.5); MEAN CORPUSCULAR HEMOGLOBIN 27.2 pg (27.0-33.0); MEAN CORPUSCULAR HGB CONC 31.4 g/dl (32.0-36.5); MEAN CORPUSCULAR VOLUME 86.6 fl (80.0-96.0); PLATELET COUNT, AUTOMATED 103 10^3/uL (150-450); RED BLOOD COUNT 2.76 10^6/uL (4.00-5.40); WHITE BLOOD COUNT 3.8 10^3/uL (4.0-10.0)
[2019-02-09 06:51] LABS: BLOOD UREA NITROGEN 3 MG/DL (7-18); CALCIUM LEVEL 7.7 MG/DL (8.5-10.1); CARBON DIOXIDE LEVEL 18 MEQ/L (21-32); CHLORIDE LEVEL 113 MEQ/L (98-107); CREATININE FOR GFR 0.69 MG/DL (0.55-1.30); GLOMERULAR FILTRATION RATE > 60.0 (>58); GLUCOSE, FASTING 134 MG/DL (70-100); MAGNESIUM LEVEL 1.6 MG/DL (1.8-2.4); POTASSIUM SERUM 3.7 MEQ/L (3.5-5.1); SODIUM LEVEL 139 MEQ/L (136-145)
[2019-02-09] MEDS: LACTULOSE 20 GM/30 ML SYRUP UD PO SCH ×4 (09:22→21:44)
[2019-02-09] MEDS: ACAMPROSATE CALCIUM 333 MG TABLET (CAMPRAL) PO SCH ×3 (09:22→21:44)
[2019-02-09] MEDS: SERTRALINE HCL 25 MG TABLET PO SCH (09:22)
[2019-02-09] MEDS ORDERED: ONDANSETRON 4 MG TAB (S0181) PO PRN (10:45)
--- NOTE | 2019-02-09 10:52 | IPNPDOC ---
Subjective Date Seen The patient was seen on 02/09/19. Subjective Chief Complaint/HPI 3 BMs over night with Bright Red Blood. No abd pain. No n/v Constitutional: Denies: Chills, Fever Pulmonary: Denies: Dyspnea, Cough Cardiovascular: Denies: Chest Pain, Palpitations Gastrointestinal: Reports: Hematochezia; Denies: Nausea, Vomiting, Abdominal Pain, Diarrhea Objective Physical Examination General Exam: Positive: Alert, Cooperative, No Acute Distress Chest Exam: Positive: Clear to auscultation, Normal air movement Heart Exam: Positive: Rate Normal, Regular Rhythm, Normal S1, Normal S2; Negative: Murmurs, Rubs Abdomen Exam: Positive: Normal bowel sounds, Soft, Tenderness (suprapubic - mild without guarding); Negative: Hepatospenomegaly Extremity Exam: Positive: Other (dry, scabbed wound on posterior right distal calf without surrounding erythema or swelling. No drainage); Negative: Edema Assessment /Plan Problems (1) GI bleed Status: Acute Problem Text: CT angio - No active bleeding Recent EGD/Colonoscopy in [place] per office notes did not show source for bleeding - no official report in ec[facility] Per [facility] consulted, but we spoke with Dr. Fontaine this am and he was not consulted last night (2) Cirrhosis of liver Status: Chronic (3) Hypokalemia Status: Resolved (4) Hypomagnesemia Status: Acute Problem Text: Give mag run (5) H/O ETOH abuse Status: Chronic Problem Text: On [place] (6) Wound of right leg Status: Chronic Response to Treatment: Stable Problem Text: Dry - healing Plan/VTE VTE Prophylaxis Ordered?: No VTE Exclusion Mechanical Proph: N/A:VTE Prophy Ordered VTE Exclusion Pharmacological: Active Bleeding VS, I&O, 24H, Fishbone Vital Signs/I&O Vital Signs Date Time Temp Pulse Resp B/P (MAP) Pulse Ox O2 Delivery O2 Flow Rate FiO2 02/09/19 06:23 18 02/09/19 06:00 64 99/59 (72) 99 02/09/19 05:15 98.2 02/09/19 01:00 Room Air I&O- Last 24 Hours up to 6 AM 02/09/19 06:00 Intake Total 1022 ml Output Total 200 ml Balance 822 ml Laboratory Data 24H LABS Laboratory Tests 2 02/08/19 21:17: Immature Granulocyte % (Auto) 0.6, White Blood Count 4.8, Red Blood Count 2.26L, Hemoglobin 6.1*L, Hematocrit 20.1L, Mean Corpuscular Volume 88.9, Mean Corpuscular Hemoglobin 27.0, Mean Corpuscular Hemoglobin Concent 30.3L, Red Cell Distribution Width 15.2H, Platelet Count 150, Neutrophils (%) (Auto) 55.8, Lymphocytes (%) (Auto) 23.2L, Monocytes (%) (Auto) 12.1H, Eosinophils (%) (Auto) 7.7H, Basophils (%) (Auto) 0.6, Neutrophils # (Auto) 2.7, Lymphocytes # (Auto) 1.1L, Monocytes # (Auto) 0.6, Eosinophils # (Auto) 0.4, Basophils # (Auto) 0.0, Nucleated Red Blood Cells % (auto) 0.0, Prothrombin Time 17.8H, Prothromb Time International Ratio 1.50, Activated Partial Thromboplast Time 34.4, Anion Gap 11, Glomerular Filtration Rate > 60.0, Calcium Level 7.6L, Aspartate Amino Transf (AST/SGOT) 57H, Alanine Aminotransferase (ALT/SGPT) 36, Alkaline Phosphatase 177H, Total Bilirubin 1.5H, Direct Bilirubin 1.3H, Total Protein 5.7L, Albumin 2.6L, Albumin/Globulin Ratio 0.84L, Lipase 186, Ethyl Alcohol Level < 0.003 02/08/19 21:30: Ammonia 37H 02/09/19 06:10: Nucleated Red Blood Cells % (auto) 0.0, Anion Gap 8, Glomerular Filtration Rate > 60.0, Calcium Level 7.7L, Blood Urea Nitrogen 3L, Creatinine 0.69, Sodium Level 139, Potassium Level 3.7#, Chloride Level 113H, Carbon Dioxide Level 18L, Magnesium Level 1.6L CBC/BMP Laboratory Tests 02/08/19 21:17 Red Blood Count 2.26 L, Mean Corpuscular Volume 88.9, Mean Corpuscular Hemoglobin 27.0, Mean Corpuscular Hemoglobin Concent 30.3 L, Red Cell Distribution Width 15.2 H, Neutrophils (%) (Auto) 55.8, Lymphocytes (%) (Auto) 23.2 L, Monocytes (%) (Auto) 12.1 H, Eosinophils (%) (Auto) 7.7 H, Basophils (%) (Auto) 0.6, Neutrophils # (Auto) 2.7, Lymphocytes # (Auto) 1.1 L, Monocytes # (Auto) 0.6, Eosinophils # (Auto) 0.4, Basophils # (Auto) 0.0 02/09/19 06:10 Red Blood Count 2.76 L, Mean Corpuscular Volume 86.6, Mean Corpuscular Hemoglobin 27.2, Mean Corpuscular Hemoglobin Concent 31.4 L, Red Cell Distribution Width 15.0 H, Calcium Level 7.7 L SILVA JACKMAN PA-C Feb 09, 2019 10:52
[2019-02-09 11:26] LABS: MEAN CORPUSCULAR HEMOGLOBIN 28.2 pg (27.0-33.0); MEAN CORPUSCULAR HGB CONC 30.8 g/dl (32.0-36.5); MEAN CORPUSCULAR VOLUME 91.5 fl (80.0-96.0); PLATELET COUNT, AUTOMATED 113 10^3/uL (150-450); RED BLOOD COUNT 2.84 10^6/uL (4.00-5.40); WHITE BLOOD COUNT 4.1 10^3/uL (4.0-10.0)
[2019-02-09] MEDS: PANTOPRAZOLE 40MG INJ (PROTONIX) (C9113) IV SCH ×2 (11:43→22:55)
[2019-02-09] MEDS ORDERED: MAG SULF 1GM/100ML (MAG RUN) 1 GM in IV 1 EA IV ONE (12:00)
[2019-02-09] MEDS ORDERED: propofoL 200 MG/20 ML VIAL As Ordered ONE (16:52)
[2019-02-09] MEDS ORDERED: LIDOCAINE 2% INJ 100 MG/5 ML SDV (FOR ANES.) As Ordered ONE (16:52)
[2019-02-09] MEDS ORDERED: fentaNYL 100 MCG/2 ML INJECTION (J3010) As Ordered ONE (16:52)
[2019-02-09] MEDS ORDERED: MIDAZOLAM INJ 2 MG/2 ML VIAL (J2250) As Ordered ONE (16:52)
--- NOTE | 2019-02-09 17:22 | ROOR ---
Patient Name: Danna Gatica Procedure Date: 02/09/2019 4:03 PM Date of : 1975 Age: 43 Gender: Female Note Status: Finalized Procedure: Upper GI endoscopy Indications: Active gastrointestinal bleeding, Recent gastrointestinal bleeding Providers: Gabriel Fontaine MD Referring MD: Rodri Page MD Requesting Provider: Medicines: Monitored Anesthesia Care Complications: No immediate complications. Procedure: Pre-Anesthesia Assessment: - The heart rate, respiratory rate, oxygen saturations, blood pressure, adequacy of pulmonary ventilation, and response to care were monitored throughout the procedure. The Endoscope was introduced through the mouth, and advanced to the second part of duodenum. The upper GI endoscopy was accomplished without difficulty. The patient tolerated the procedure well. Findings: The Z-line was regular and was found 40 cm from the incisors. The examined esophagus was normal. Mild portal hypertensive gastropathy was found in the entire examined stomach. The exam of the duodenum was otherwise normal. Impression: - Z-line regular, 40 cm from the incisors. - Normal esophagus. - Portal hypertensive gastropathy. - No specimens collected. - The examination was otherwise normal. Recommendation: - Patient has a contact number available for emergencies. The signs and symptoms of potential delayed complications were discussed with the patient. Return to normal activities tomorrow. Written discharge instructions were provided to the patient. - Resume previous diet. - Continue present medications. - Return patient to hospital [facility] for ongoing care. - The findings and recommendations were discussed with the patient. Gabriel Fontaine MD Gabriel Fontaine MD 02/09/2019 5:22:04 PM Electronically signed by Gabriel Fontaine MD Number of Addenda: 0 Note Initiated On: 02/09/2019 4:03 PM Estimated Blood Loss: Estimated blood loss: none.
[2019-02-09] MEDS: hydrOXYzine 25 MG TAB PO SCH (21:44)
[2019-02-09 23:02] LABS: HEMATOCRIT 22.3 % (36.0-47.0); MEAN CORPUSCULAR HEMOGLOBIN 27.8 pg (27.0-33.0); MEAN CORPUSCULAR HGB CONC 31.4 g/dl (32.0-36.5); MEAN CORPUSCULAR VOLUME 88.5 fl (80.0-96.0); PLATELET COUNT, AUTOMATED 101 10^3/uL (150-450); RED BLOOD COUNT 2.52 10^6/uL (4.00-5.40); WHITE BLOOD COUNT 3.4 10^3/uL (4.0-10.0)
[2019-02-09 23:36] LABS: BLOOD UREA NITROGEN 3 MG/DL (7-18); CALCIUM LEVEL 7.2 MG/DL (8.5-10.1); CARBON DIOXIDE LEVEL 19 MEQ/L (21-32); CHLORIDE LEVEL 117 MEQ/L (98-107); CREATININE FOR GFR 0.73 MG/DL (0.55-1.30); GLOMERULAR FILTRATION RATE > 60.0 (>58); GLUCOSE, FASTING 126 MG/DL (70-100); MAGNESIUM LEVEL 1.8 MG/DL (1.8-2.4); PHOSPHORUS LEVEL 2.3 MG/DL (2.5-4.9); POTASSIUM SERUM 3.6 MEQ/L (3.5-5.1); SODIUM LEVEL 143 MEQ/L (136-145)
[2019-02-10] VITALS (20 sets, daily range): BP systolic 91–115; BP diastolic 46–77
[2019-02-10] MEDS: MORPHINE 4 MG/ML 1ML VIAL/SYRINGE (J2270) IV PRN ×4 (04:08→22:34)
[2019-02-10 06:04] LABS: HEMATOCRIT 27.4 % (36.0-47.0); HEMOGLOBIN 8.9 g/dl (12.0-15.5); MEAN CORPUSCULAR HEMOGLOBIN 28.3 pg (27.0-33.0); MEAN CORPUSCULAR HGB CONC 32.5 g/dl (32.0-36.5); RED BLOOD COUNT 3.15 10^6/uL (4.00-5.40); WHITE BLOOD COUNT 3.3 10^3/uL (4.0-10.0)
[2019-02-10] MEDS: KCL 40MEQ IN D5/NS 1000ML 1,000 ML IV SCH ×3 (06:04→23:58)
[2019-02-10 06:09] LABS: PLATELET COUNT, AUTOMATED 99 10^3/uL (150-450)
[2019-02-10 06:42] LABS: ALBUMIN 2.1 GM/DL (3.2-5.2); ALT/SGPT 30 U/L (12-78); BILIRUBIN,TOTAL 2.3 MG/DL (0.2-1.0); BLOOD UREA NITROGEN 3 MG/DL (7-18); CALCIUM LEVEL 7.3 MG/DL (8.5-10.1); CARBON DIOXIDE LEVEL 19 MEQ/L (21-32); CHLORIDE LEVEL 118 MEQ/L (98-107); CREATININE FOR GFR 0.64 MG/DL (0.55-1.30); GLOMERULAR FILTRATION RATE > 60.0 (>58); GLUCOSE, FASTING 97 MG/DL (70-100); POTASSIUM SERUM 3.9 MEQ/L (3.5-5.1); SODIUM LEVEL 144 MEQ/L (136-145); TOTAL PROTEIN 4.5 GM/DL (6.4-8.2)
--- NOTE | 2019-02-10 09:12 | IPNPDOC ---
Subjective Date Seen The patient was seen on 02/10/19. Subjective Chief Complaint/HPI Still passing BRBPR overnight. Constitutional: Denies: Chills, Fever Pulmonary: Denies: Dyspnea, Cough Cardiovascular: Denies: Chest Pain, Palpitations Gastrointestinal: Reports: Abdominal Pain (mild lower abd discomfort), Hematochezia; Denies: Nausea, Vomiting, Diarrhea, Constipation Objective Physical Examination General Exam: Positive: Alert, Cooperative, No Acute Distress Chest Exam: Positive: Clear to auscultation, Normal air movement Heart Exam: Positive: Rate Normal, Regular Rhythm, Normal S1, Normal S2; Negative: Murmurs, Rubs Abdomen Exam: Positive: Normal bowel sounds, Soft, Tenderness (suprapubic - mild without guarding); Negative: Hepatospenomegaly Extremity Exam: Positive: Other (dry, scabbed wound on posterior right distal calf without surrounding erythema or swelling. No drainage); Negative: Edema Neuro Exam: Positive: Normal Speech Psych Exam: Positive: Mental status NL, Oriented x 3 Assessment /Plan Problems (1) GI bleed Status: Acute Problem Text: 02/10 - Dr Graves performed EGD 02/09: - Z-line regular, 40 cm from the incisors. - Normal esophagus. - Portal hypertensive gastropathy. - No specimens collected. - The examination was otherwise normal- CT angio 02/09- No active bleeding Tagged RBC scan ordered today - suspect hemorrhoidal bleeding - Will likely need surgical consult Hgb down again overnight- transfused 2 more units PRBCs Recent EGD/Colonoscopy in [place] per office notes did not show source for bleeding - no official report in ecw (2) Cirrhosis of liver Status: Chronic Response to Treatment: Stable (3) Hypokalemia Status: Resolved (4) Hypomagnesemia Status: Resolved Problem Text: Gave mag run 02/09 (5) H/O ETOH abuse Status: Chronic Problem Text: On Campral (6) Wound of right leg Status: Chronic Response to Treatment: Stable Problem Text: Dry - healing Plan/VTE VTE Prophylaxis Ordered?: No VTE Exclusion Mechanical Proph: N/A:VTE Prophy Ordered VTE Exclusion Pharmacological: Active Bleeding VS, I&O, 24H, Fishbone Vital Signs/I&O Vital Signs Date Time Temp Pulse Resp B/P (MAP) Pulse Ox O2 Delivery O2 Flow Rate FiO2 02/10/19 08:00 97.9 56 18 109/60 (76) 96 02/09/19 01:00 Room Air I&O- Last 24 Hours up to 6 AM 02/10/19 06:00 Intake Total 3100 ml Output Total 600 ml Balance 2500 ml Laboratory Data 24H LABS Laboratory Tests 2 02/09/19 11:13: Nucleated Red Blood Cells % (auto) 0.0 02/09/19 22:54: Nucleated Red Blood Cells % (auto) 0.0, Blood Urea Nitrogen 3L, Creatinine 0.73, Sodium Level 143, Potassium Level 3.6, Chloride Level 117H, Carbon Dioxide Level 19L, Anion Gap 7L, Glomerular Filtration Rate > 60.0, Calcium Level 7.2L, Phosphorus Level 2.3L, Magnesium Level 1.8, Albumin 2.0#L 02/10/19 05:51: Nucleated Red Blood Cells % (auto) 0.0, Blood Urea Nitrogen 3L, Creatinine 0.64, Sodium Level 144, Potassium Level 3.9, Chloride Level 118H, Carbon Dioxide Level 19L, Anion Gap 7L, Glomerular Filtration Rate > 60.0, Calcium Level 7.3L, Albumin 2.1L, Immature Platelet Fraction 2.1, Aspartate Amino Transf (AST/SGOT) 45H, Alanine Aminotransferase (ALT/SGPT) 30, Alkaline Phosphatase 101, Total Bilirubin 2.3#H, Total Protein 4.5#L, Albumin/Globulin Ratio 0.88L CBC/BMP Laboratory Tests 02/09/19 11:13 Red Blood Count 2.84 L, Mean Corpuscular Volume 91.5, Mean Corpuscular Hemoglobin 28.2, Mean Corpuscular Hemoglobin Concent 30.8 L, Red Cell Distributi on Width 15.1 H 02/09/19 22:54 Red Blood Count 2.52 L, Mean Corpuscular Volume 88.5, Mean Corpuscular Hemoglobin 27.8, Mean Corpuscular Hemoglobin Concent 31.4 L, Red Cell Distr ibution Width 15.5 H, Anion Gap 7 L 02/10/19 05:51 Red Blood Count 3.15 L, Mean Corpuscular Volume 87.0, Mean Corpuscular Hemoglobin 28.3, Mean Corpuscular Hemoglobin Concent 32.5, Red Cell Distribution Width 14.7 H, Calcium Level 7.3 L, Aspartate Amino Transf (AST/SGOT) 45 H, Alanine Aminotransferase (ALT/SGPT) 30, Alkaline Phosphatase 101, Total Bilirubin 2.3 #H, Total Protein 4.5 #L, Albumin 2.1 L SILVA JACKMAN PA-C Feb 10, 2019 09:12
[2019-02-10] MEDS: ACAMPROSATE CALCIUM 333 MG TABLET (CAMPRAL) PO SCH ×3 (09:53→21:30)
[2019-02-10] MEDS: LACTULOSE 20 GM/30 ML SYRUP UD PO SCH ×3 (09:53→21:30)
[2019-02-10] MEDS: SERTRALINE HCL 25 MG TABLET PO SCH (09:53)
[2019-02-10] MEDS: PANTOPRAZOLE 40MG INJ (PROTONIX) (C9113) IV SCH ×2 (12:50→23:58)
--- NOTE | 2019-02-10 15:04 | REP ---
HISTORY: Rectal bleeding and anemia. COMPARISON: None. After the intravenous administration of 26.3 mCi of technetium 99m UltraTag RBCs, GI bleeding scintiscan was performed. There is no scintigraphic pattern consistent with a gastrointestinal hemorrhage. No abnormal focal increased radionuclide accumulation is seen on the flow study and no abnormal increased radionuclide accumulation is seen on the dynamic study. IMPRESSION: Negative exam. Electronically Signed by Shad Malloy DO 02/10/2019 05:12 P
--- NOTE | 2019-02-10 19:06 | CR ---
DATE OF CONSULTATION: 02/09/2019 A 43-year-old white female with a known history of chronic alcohol abuse and secondary cirrhosis secondary to alcohol abuse. The patient apparently had been sober for approximately five years. However, she had a relapse and most recently she has been sober for approximately two months. She apparently has had a previous history of hepatic encephalopathy. She apparently was admitted for approximately 10 days at [facility]. She was going to be seen by the liver transplant people for evaluation but she suddenly developed rectal bleeding and was admitted. The patient was also being seen for right leg cellulitis. The patient apparently had frequent rectal bleeding for approximately a week prior to her admission. She had upper and lower endoscopy which apparently did not show any abnormalities except for apparently some polyps were removed and hemorrhoids. She was discharged apparently with a hemoglobin of 2 and the bleeding stopped for approximately a week prior to admission and then began again approximately three days prior to admission to [facility] ([facility] The patient denies any complaints of abdominal pain. No apparent fevers, night sweats or shaking chills. No involuntary weight loss. The patient is being seen again for this rectal bleeding in someone who has known cirrhosis. MEDICATIONS: Include - Lasix - Questran - Vistaril - lactulose 30 mL by mouth three times a day - nadolol 20 mg by mouth daily - pantoprazole 40 mg by mouth daily - sertraline - spironolactone 100 mg by mouth twice a day - The patient takes alprazolam 25 mg three times a day as needed for anxiety. ALLERGIES: TYLENOL and BUSPAR. PAST MEDICAL HISTORY: Positive for: 1. Chronic alcohol abuse. 2. Cirrhosis of the liver. 3. Hepatic encephalopathy. 4. Apparent history of varices. PAST SURGICAL HISTORY: Breast augmentation and liposuction. FAMILY HISTORY: Noncontributory to the above problem. SOCIAL HISTORY: The patient denies cigarettes. Alcohol: She apparently has recently quit over the past several months. REVIEW OF SYSTEMS: Noncontributory. PHYSICAL EXAMINATION: General: This is a well-developed, well-nourished white female in no obvious acute distress. Appears stated age. Chest is clear to auscultation. Cardiovascular examination showed a regular rhythm. No murmurs or gallops. Normal physiological split. Abdomen: Soft, nontender. No obvious hepatosplenomegaly. Extremities: No cyanosis, clubbing, edema. LABORATORY STUDIES: On admission shows a hemoglobin of 6.1, hematocrit 20.1, platelets were 150,000, and white count was 4800. The patient was transfused on admission and was given two units of packed cells. Blood count is 8.0 and 26.0, platelets are still somewhat stable at 113. The patient's INR on admission was 1.50. Toxicology studies showed a negative alcohol level. IMAGING STUDIES: On admission included CT angiography which suggested portal venous cirrhosis with portal venous hypertension, a small amount of ascites. No active bleeding at time of the CT angiography. ANALYSIS: Rectal bleeding of unknown etiology, possible variceal bleed with rapid transit versus a lower gastrointestinal (GI) source, possibly diverticulosis or hemorrhoids. Again, the patient had an upper endoscopy and lower endoscopy at [place] which did not reveal any obvious lesion or active site of bleeding. PLAN: 1. The plan will be tonight to set the patient up for an upper endoscopy to exclude gastric and/or possible esophageal varices or ulcer disease. The plan will be set the patient up for and upper endoscopy. 2. Maintain all current medications and follow expectantly. At this point, I am not entertaining a plan to repeat the colonoscopy unless she continues to have bleeding. We may need to consult surgery for a possible chronic hemorrhoidal bleed. In light of an international normalized ratio (INR) of 1.5, it is possible to possibly bleed down from hemorrhoids with a coagulopathy secondary to her cirrhosis.
[2019-02-10] MEDS: hydrOXYzine 25 MG TAB PO SCH (21:30)
[2019-02-11] VITALS: BP 106/50
[2019-02-11 04:00] VITALS: BP 107/59
[2019-02-11] MEDS: MORPHINE 4 MG/ML 1ML VIAL/SYRINGE (J2270) IV PRN ×4 (04:37→23:13)
[2019-02-11 05:52] LABS: HEMATOCRIT 24.5 % (36.0-47.0); HEMOGLOBIN 7.8 g/dl (12.0-15.5); MEAN CORPUSCULAR HEMOGLOBIN 28.1 pg (27.0-33.0); MEAN CORPUSCULAR HGB CONC 31.8 g/dl (32.0-36.5); MEAN CORPUSCULAR VOLUME 88.1 fl (80.0-96.0); RED BLOOD COUNT 2.78 10^6/uL (4.00-5.40); WHITE BLOOD COUNT 3.3 10^3/uL (4.0-10.0)
[2019-02-11 05:56] LABS: PLATELET COUNT, AUTOMATED 88 10^3/uL (150-450)
[2019-02-11 06:18] LABS: BLOOD UREA NITROGEN 3 MG/DL (7-18); CALCIUM LEVEL 7.1 MG/DL (8.5-10.1); CARBON DIOXIDE LEVEL 18 MEQ/L (21-32); CHLORIDE LEVEL 118 MEQ/L (98-107); CREATININE FOR GFR 0.75 MG/DL (0.55-1.30); GLOMERULAR FILTRATION RATE > 60.0 (>58); GLUCOSE, FASTING 163 MG/DL (70-100); POTASSIUM SERUM 3.6 MEQ/L (3.5-5.1); SODIUM LEVEL 144 MEQ/L (136-145)
[2019-02-11 08:00] VITALS: BP 101/56
[2019-02-11] MEDS ORDERED: POTASSIUM CHLORIDE 10 MEQ SR TABLET PO SCH (09:00)
[2019-02-11] MEDS: ACAMPROSATE CALCIUM 333 MG TABLET (CAMPRAL) PO SCH ×3 (09:28→21:33)
[2019-02-11] MEDS: LACTULOSE 20 GM/30 ML SYRUP UD PO SCH ×3 (09:28→21:31)
[2019-02-11] MEDS: SERTRALINE HCL 25 MG TABLET PO SCH (09:28)
[2019-02-11] MEDS ORDERED: BISACODYL 10 MG SUPP PR ONE (10:00)
--- NOTE | 2019-02-11 10:50 | IPNPDOC ---
Subjective Date Seen The patient was seen on 02/11/19. Subjective Chief Complaint/HPI Continues to pas BRBPR. Otherwise feels well. Ate solid food last night and tolerated this well Pulmonary: Denies: Dyspnea, Cough Cardiovascular: Denies: Chest Pain, Palpitations, Orthopnea Gastrointestinal: Denies: Nausea, Vomiting, Abdominal Pain, Diarrhea, Constipation Objective Physical Examination General Exam: Positive: Alert, Cooperative, No Acute Distress Chest Exam: Positive: Clear to auscultation, Normal air movement Heart Exam: Positive: Rate Normal, Regular Rhythm, Normal S1, Normal S2; Negative: Murmurs, Rubs Abdomen Exam: Positive: Normal bowel sounds, Soft; Negative: Tenderness, Hepatospenomegaly Extremity Exam: Positive: Other (dry, scabbed wound on posterior right distal calf without surrounding erythema or swelling. No drainage); Negative: Edema Neuro Exam: Positive: Normal Speech Psych Exam: Positive: Mental status NL, Oriented x 3 Assessment /Plan Problems (1) GI bleed Status: Acute Problem Text: 02/11 - Dr. aVsquez saw patient in consultation - plan to attempt banding of bleeding hemorrhoids later today Getting 2 more units PRBCs today 02/10 - Dr Graves performed EGD 02/09: - Z-line regular, 40 cm from the incisors. - Normal esophagus. - Portal hypertensive gastropathy. - No specimens collected. - The examination was otherwise normal- CT angio 02/09- No active bleeding Tagged RBC scan ordered today - suspect hemorrhoidal bleeding - Will likely need surgical consult Hgb down again overnight- transfused 2 more units PRBCs Recent EGD/Colonoscopy in [place] per office notes did not show source for bleeding - no official report in ecw (2) Cirrhosis of liver Status: Chronic Response to Treatment: Stable (3) Hypokalemia Status: Resolved (4) Hypomagnesemia Status: Resolved Problem Text: Gave mag run 02/09 (5) H/O ETOH abuse Status: Chronic Problem Text: On Campral (6) Wound of right leg Status: Chronic Response to Treatment: Stable Problem Text: Dry - healing Plan/VTE VTE Prophylaxis Ordered?: No VTE Exclusion Mechanical Proph: N/A:VTE Prophy Ordered VTE Exclusion Pharmacological: Active Bleeding VS, I&O, 24H, Fishbone Vital Signs/I&O Vital Signs Date Time Temp Pulse Resp B/P (MAP) Pulse Ox O2 Delivery O2 Flow Rate FiO2 02/11/19 08:00 97.8 63 16 101/56 (71) 100 02/09/19 01:00 Room Air I&O- Last 24 Hours up to 6 AM 02/11/19 06:00 Intake Total 2700 ml Output Total 1255 ml Balance 1445 ml Laboratory Data 24H LABS Laboratory Tests 2 02/11/19 05:17: Nucleated Red Blood Cells % (auto) 0.0, Anion Gap 8, Glomerular Filtration Rate > 60.0, Blood Urea Nitrogen 3L, Creatinine 0.75, Sodium Level 144, Potassium Level 3.6, Chloride Level 118H, Carbon Dioxide Level 18L, Calcium Level 7.1L CBC/BMP Laboratory Tests 02/11/19 05:17 Red Blood Count 2.78 L, Mean Corpuscular Volume 88.1, Mean Corpuscular Hemoglobin 28.1, Mean Corpuscular Hemoglobin Concent 31.8 L, Red Cell Distribution Width 15.2 H, Calcium Level 7.1 L SILVA JACKMAN PA-C Feb 11, 2019 10:50
[2019-02-11] MEDS: PANTOPRAZOLE 40MG INJ (PROTONIX) (C9113) IV SCH (11:12)
[2019-02-11] MEDS ORDERED: SLF 3 ML SYR IV PRN (14:45)
[2019-02-11] MEDS: MUPIROCIN 2% OINT 22 GM TUBE TOP SCH (15:30)
[2019-02-11 16:30] LABS: HEMATOCRIT 32.9 % (36.0-47.0); HEMOGLOBIN 10.5 g/dl (12.0-15.5)
[2019-02-11] MEDS: CHOLESTYRAMINE 4 GM PWD PKT PO SCH ×2 (18:06→21:30)
[2019-02-11 20:00] VITALS: BP 110/62
[2019-02-11] MEDS: POTASSIUM CHL PWD 20 MEQ PACKET PO SCH (21:30)
[2019-02-11] MEDS: FUROSEMIDE 20 MG TAB PO SCH (21:32)
[2019-02-11] MEDS: hydrOXYzine 25 MG TAB PO SCH (21:32)
[2019-02-11] MEDS: SPIRONOLACTONE 50 MG TAB PO SCH (21:35)
[2019-02-11] MEDS: SLF 3 ML SYR IV SCH (21:41)
[2019-02-11 23:59] VITALS: BP 120/55
[2019-02-12 04:00] VITALS: BP 112/66
[2019-02-12] MEDS: MORPHINE 4 MG/ML 1ML VIAL/SYRINGE (J2270) IV PRN ×2 (04:01→09:38)
[2019-02-12 05:53] LABS: HEMATOCRIT 30.5 % (36.0-47.0); HEMOGLOBIN 9.9 g/dl (12.0-15.5); MEAN CORPUSCULAR HEMOGLOBIN 27.8 pg (27.0-33.0); MEAN CORPUSCULAR HGB CONC 32.5 g/dl (32.0-36.5); MEAN CORPUSCULAR VOLUME 85.7 fl (80.0-96.0); PLATELET COUNT, AUTOMATED 103 10^3/uL (150-450); RED BLOOD COUNT 3.56 10^6/uL (4.00-5.40); WHITE BLOOD COUNT 4.8 10^3/uL (4.0-10.0)
[2019-02-12] MEDS: SLF 3 ML SYR IV SCH ×2 (06:06→13:37)
[2019-02-12 08:00] VITALS: BP 100/60
[2019-02-12 08:03] LABS: BLOOD UREA NITROGEN 4 MG/DL (7-18); CALCIUM LEVEL 7.6 MG/DL (8.5-10.1); CARBON DIOXIDE LEVEL 22 MEQ/L (21-32); CHLORIDE LEVEL 115 MEQ/L (98-107); CREATININE FOR GFR 0.62 MG/DL (0.55-1.30); GLOMERULAR FILTRATION RATE > 60.0 (>58); GLUCOSE, FASTING 119 MG/DL (70-100); POTASSIUM SERUM 3.4 MEQ/L (3.5-5.1); SODIUM LEVEL 143 MEQ/L (136-145)
[2019-02-12] MEDS ORDERED: PANTOPRAZOLE 40MG TAB (PROTONIX) PO SCH (09:00)
[2019-02-12] MEDS ORDERED: NADOLOL 20MG TABLET PO SCH (09:00)
[2019-02-12] MEDS: MUPIROCIN 2% OINT 22 GM TUBE TOP SCH (09:07)
[2019-02-12] MEDS: SERTRALINE HCL 25 MG TABLET PO SCH (09:07)
[2019-02-12] MEDS: SPIRONOLACTONE 50 MG TAB PO SCH (09:07)
[2019-02-12] MEDS: LACTULOSE 20 GM/30 ML SYRUP UD PO SCH ×2 (09:07→17:07)
[2019-02-12] MEDS: ACAMPROSATE CALCIUM 333 MG TABLET (CAMPRAL) PO SCH ×2 (09:07→17:07)
[2019-02-12] MEDS: FUROSEMIDE 20 MG TAB PO SCH (09:08)
[2019-02-12 09:09] VITALS: BP 112/60
[2019-02-12] MEDS: POTASSIUM CHL PWD 20 MEQ PACKET PO SCH (09:09)
[2019-02-12] MEDS: CHOLESTYRAMINE 4 GM PWD PKT PO SCH ×2 (10:50→13:37)
[2019-02-12 11:28] VITALS: BP 103/61
--- NOTE | 2019-02-12 12:32 | IPNPDOC ---
Text Note Date of Service The patient was seen on 02/12/19. NOTE No acute events overnight. She had one BM that was brown with some blood in it, and then two mostly bloody BMs that followed it. VSSAF NAD abd - soft, non distended, nontender labs - below A) 43y/o female with alcoholic cirrhosis with hemorrhoidal varices that are likely the cause of lower GI bleeding P) reg diet ambulate monitor labs I would not recommend repeating the hemorrhoid banding for atleast another 48 hours. The internal hemorrhoids did not look that bad on rectal exam yesterday. If she is continuing to bleed profusely then she may benefit from another colonoscopy, or possibly even an IR consult for a TIPS. Yandel Vasquez DO VS,Wood, I+O VS, Wood, I+O Laboratory Tests 02/11/19 15:48 02/12/19 05:37 Red Blood Count 3.56 L, Mean Corpuscular Volume 85.7, Mean Corpuscular Hemoglobin 27.8, Mean Corpuscular Hemoglobin Concent 32.5, Red Cell Distribution Width 15.6 H 02/12/19 07:10 Calcium Level 7.6 L Vital Signs Date Time Temp Pulse Resp B/P (MAP) Pulse Ox O2 Delivery O2 Flow Rate FiO2 02/12/19 11:28 97.1 68 18 103/61 (75) 98 02/09/19 01:00 Room Air I&O- Last 24 Hours up to 6 AM 02/12/19 06:00 Intake Total 1707.5 ml Output Total 1650 ml Balance 57.5 ml FABIO VASQUEZ DO Feb 12, 2019 12:32
[2019-02-12 16:00] VITALS: BP 96/59
--- NOTE | 2019-02-12 16:26 | REP ---
LIMITED ABDOMINAL ULTRASOUND: Real-time sonographic evaluation of the abdomen performed. There is a minimal amount of ascites scattered throughout the abdomen. Scheduled paracentesis is not performed as there would be no therapeutic benefit. Electronically Signed by Marvin Stephenson MD 02/14/2019 11:06 P
--- NOTE | 2019-02-12 18:31 | CR ---
DATE OF CONSULTATION: 02/11/2019 REASON FOR CONSULTATION: Gastrointestinal (GI) bleeding. HISTORY OF PRESENT ILLNESS: The patient is a 43-year-old female with a history of chronic alcohol abuse and liver cirrhosis secondary to that who has been having difficulty with lower gastrointestinal (GI) bleeding recently. She was at [facility] in [place] for approximately 10 days due to this as well as some other complications of her liver disease and some cellulitis. During that stay, she required multiple transfusions. She had upper and lower endoscopy that did not show any other abnormalities other than a few polyps and some internal hemorrhoids. During that stay, the bleeding did finally stop. She was discharged home. However, after returning home, she started having some rectal bleeding again and came back into the hospital here on 02/09/2019 for the same symptoms. On admission, her hemoglobin was down to 6.1. She has already been transfused at least four units. She is receiving another two units today. She has already been seen by Dr. Fontaine who did an upper endoscopy, found no abnormalities again, and recommended that surgery be consulted to evaluate for possible treatment of her internal hemorrhoids. Currently, she says that she is having bleeding with pretty much every bowel movement, bright red bleeding, even some bleeding without bowel movements. Denies any blood from anywhere else. No runny noses. No coughing or throwing up blood. No abnormal bruising on her body. PAST MEDICAL HISTORY: 1. Chronic alcohol abuse. 2. Cirrhosis. 3. Hepatic encephalopathy. 4. Varices. PAST SURGICAL HISTORY: Breast augmentation and liposuction. FAMILY HISTORY: Noncontributory. ALLERGIES: TYLENOL, BUSPAR. MEDICATIONS: Please see the medical record. SOCIAL HISTORY: Denies tobacco abuse. Has a history of alcohol abuse. Denies drugs. REVIEW OF SYSTEMS: Pertinent positives and negatives as stated in the history of present illness (HPI). PHYSICAL EXAMINATION: GENERAL: Alert and oriented times three, in no acute distress. VITAL SIGNS: Temperature 97.8, pulse 63, respirations 16, blood pressure 101/56, pulse oximetry 100% on room air. HEENT: Pupils equally round and react to light and accommodation. HEART: S1, S2, regular rate and rhythm. LUNGS: Clear to auscultation bilaterally. ABDOMEN: Soft, nontender, nondistended. EXTREMITIES: No clubbing, cyanosis or edema. LABORATORY DATA: White count is 3.3, hemoglobin 7.8, down from 8.9 24 hours ago, platelets 88. Potassium 3.6, creatinine 0.75, calcium 7.1. IMAGING STUDIES: GI bleeding scan done 02/10/2019 is negative. ASSESSMENT AND PLAN: The patient is a 43-year-old female with lower gastrointestinal (GI) bleed likely secondary to hemorrhoidal varices versus other lower GI source. Upper endoscopy was negative for the second time within the last month. Recommendation at this time is to proceed with anoscopy and possible banding of the internal hemorrhoids. The risks and benefits of the procedure not limited but including bleeding, infection, damage to surrounding structure, and the need for further surgery were discussed in detail with her. Consent was obtained and procedure was planned to be done at her bedside. After the procedure, we will continue to monitor her hemoglobin levels and with further recommendations to follow.
--- NOTE | 2019-02-18 04:53 | RO ---
DATE OF PROCEDURE: 02/11/2019 PREOPERATIVE DIAGNOSIS: Bleeding internal hemorrhoids. POSTOPERATIVE DIAGNOSIS: Bleeding internal hemorrhoids. PROCEDURE: Anoscopy with rubber band ligation of internal hemorrhoids. SURGEON: Dr. Marvin Vasquez SQUARE CUTTER: None. ANESTHESIA: None. ESTIMATED BLOOD LOSS: Minimal. COMPLICATIONS: None. INDICATIONS FOR PROCEDURE: Patient is a 43-year-old female who has had complications with anemia and lower gastrointestinal (GI) bleeding for the past month or so. She has required multiple units of blood transfusion; it has always been suspected to be from internal hemorrhoids since she has had upper and lower endoscopies completed without any other signs of bleeding as well as a negative bleeding scan. Recommendation was to proceed with anoscopy at the bedside along with rubber band ligation of internal hemorrhoids. She agreed to the procedure and signed consent. The risks of the procedure not limited to but including bleeding, infection, damage to surrounding structures, and need for further surgery were discussed in detail with her and procedure was planned. DESCRIPTION OF PROCEDURE: At the bedside on the 3rd third floor in the progressive care unit (PCU), I had her lay on the bed in the prone position with her elbows and knees on the bed. Next, using an anoscope, I was able to look inside of the distal rectum. I did identify some internal hemorrhoids, nothing that was actively bleeding at the time. I took two rubber bands and placed one on the left lateral side, one on the right posterior side. Bands were placed over the largest of the hemorrhoids, so that I could identify. There was some bleeding that occurred with placement of the bands but nothing profuse. Once that was completed, the scope was removed, thus ending procedure. She tolerated the procedure well. Continue to monitor her closely during her inpatient stay and consider re-banding in at least 48-72 hours if she needs it.
--- NOTE | 2019-02-26 14:28 | DSES ---
DATE OF ADMISSION: 02/08/2019 DATE OF DISCHARGE: 02/12/2019 PRINCIPAL DIAGNOSIS: Lower gastrointestinal bleed from presumed hemorrhoids. FURNACE OPERATOR: Dr. Yandel Vasquez. PRINCIPAL PROCEDURE: Banding of hemorrhoids. SECONDARY DIAGNOSES: 1. Cirrhosis of liver. 2. Hypokalemia. 3. Hypomagnesemia. 4. History of alcoholic cirrhosis. 5. Chronic wound right leg. HISTORY: Patient admitted with a GI bleed. Details are in history and physical examination on admission. HOSPITAL COURSE: She was admitted to a monitored bed. Serial CBCs were done and she was transfused 6 units of packed red blood cells. She was seen in consultation by Dr. Gabriel Fontaine, her field sales agent. He did upper endoscopy on admission that showed mild portal hypertensive gastropathy the entire length of the stomach, but no active bleeding. She had anoscopy with rubber band ligation of internal hemorrhoids by Dr. Vasquez on 02/11/2019. Her CBCs remained stable and she was discharged home on 02/12/2019. On the day of discharge, her hemoglobin was 9.9 and platelets 103. Electrolytes unremarkable. Bilirubin was 2.3. DISCHARGE MEDICATIONS: - Acamprosate 333 mg three times a day - alprazolam 0.25 mg twice a day as needed for anxiety - cholestyramine 4 grams before food and nightly - furosemide 20 mg twice a day - hydrocortisone acetate rectal suppository as needed - Atarax 25 mg at bedtime - lactulose 30 mL three times a day - nadolol 20 mg daily - Protonix 40 mg daily - K-Mone 20 mEq twice a day - Sertraline 25 mg daily - Spironolactone 100 mg twice a day ACTIVITY: As tolerated. DIET: No added salt. FOLLOWUP: With primary care provider in a week.
== END 2019-02-12 17:37 | disposition home or self-care (01) | DRG 226 ==
LOC: M ED 20:49 → M ED INP 23:06 → M ICU 02-09 01:10 → M PCU 02-10 16:02
PROVIDERS: ADMIT Hospitalist; ATTEND Family Medicine
PROC: 30233N1 Transfusion of Nonautologous Red Blood Cells into Peripheral Vein, Percutaneous Approach (ICD-10-PCS; 2019-02-08)
PROC: 0DJ08ZZ Inspection of Upper Intestinal Tract, Via Natural or Artificial Opening Endoscopic (ICD-10-PCS; principal; 2019-02-09 15:51)
PROC: 06LY4ZC Occlusion of Hemorrhoidal Plexus, Percutaneous Endoscopic Approach (ICD-10-PCS; 2019-02-11)
DX: K64.9 Unspecified hemorrhoids (principal); L03.115 Cellulitis of right lower limb; K70.30 Alcoholic cirrhosis of liver without ascites; E83.42 Hypomagnesemia; K62.5 Hemorrhage of anus and rectum; K31.89 Other diseases of stomach and duodenum; D64.9 Anemia, unspecified; E87.6 Hypokalemia; R53.83 Other fatigue; Z79.899 Other long term (current) drug therapy; Z88.6 Allergy status to analgesic agent; Z88.8 Allergy status to other drugs, medicaments and biological substances

== ENCOUNTER → 2019-02-08 | Outpatient (REF) | payer BC ==
[~2019-02-08] MED LIST changes: +ACAM0.05 PO; +ALPR0.25 PO; +ANUS25SU PR; +HYDR25SU23 PR; +LACT10SO29 PO; +POTA20PW PO; +VIST25CA PO; +XIFA200T2 PO
[2019-02-08 16:45] LABS: BASO % 0.6 % (0.0-1.0); EOS # 0.3 10^3/uL (0.0-0.50); EOS % 6.8 % (0.0-3.0); HEMATOCRIT 20.4 % (36.0-47.0); LYMPH # 1.2 10^3/uL (1.5-4.5); LYMPH % 25.1 % (24.0-44.0); MEAN CORPUSCULAR HEMOGLOBIN 26.3 pg (27.0-33.0); MEAN CORPUSCULAR HGB CONC 29.9 g/dl (32.0-36.5); MEAN CORPUSCULAR VOLUME 87.9 fl (80.0-96.0); MONO # 0.5 10^3/uL (0.0-0.8); MONO % 10.8 % (0.0-5.0); NEUTROPHILS # 2.7 10^3/uL (1.8-7.7); NEUTROPHILS % 56.1 % (36.0-66.0); PLATELET COUNT, AUTOMATED 146 10^3/uL (150-450); RED BLOOD COUNT 2.32 10^6/uL (4.00-5.40); WHITE BLOOD COUNT 4.8 10^3/uL (4.0-10.0)
[2019-02-08 16:52] LABS: ALBUMIN 2.6 GM/DL (3.2-5.2); ALT/SGPT 37 U/L (12-78); BILIRUBIN,TOTAL 1.7 MG/DL (0.2-1.0); BLOOD UREA NITROGEN 4 MG/DL (7-18); CALCIUM LEVEL 8.1 MG/DL (8.5-10.1); CARBON DIOXIDE LEVEL 19 MEQ/L (21-32); CHLORIDE LEVEL 111 MEQ/L (98-107); CREATININE FOR GFR 0.76 MG/DL (0.55-1.30); FERRITIN 23 NG/ML (8-252); GLOMERULAR FILTRATION RATE > 60.0 (>58); GLUCOSE, FASTING 132 MG/DL (70-100); IRON (FE) 12 UG/DL (50-170); PERCENT SATURATION 3.3 % (13.2-45.0); POTASSIUM SERUM 3.4 MEQ/L (3.5-5.1); SODIUM LEVEL 137 MEQ/L (136-145); TOTAL IRON BINDING CAPACITY 362 UG/DL (250-450); TOTAL PROTEIN 5.8 GM/DL (6.4-8.2)
[2019-02-08 17:37] LABS: HEMOGLOBIN 6.1 g/dl (12.0-15.5)
== END ==
LOC: M SFHCPLAZ 15:01
PROVIDERS: ATTEND Physician Assistant Medical
DX: D50.0 Iron deficiency anemia secondary to blood loss (chronic) (principal)

== ENCOUNTER → 2019-02-25 | Outpatient (REF) | payer BC ==
[~2019-02-25] MED LIST changes: +ACAM0.05 PO; +ALPR0.25 PO; +ANUS25SU PR; +HYDR25SU23 PR; +LACT10SO29 PO; +POTA20PW PO; +VIST25CA PO; +XIFA200T2 PO
[2019-02-25 13:41] LABS: BASO # 0.1 10^3/uL (0.0-0.2); BASO % 1.1 % (0.0-1.0); EOS # 0.2 10^3/uL (0.0-0.5); EOS % 4.6 % (0.0-3.0); HEMATOCRIT 38.7 % (36.0-47.0); HEMOGLOBIN 12.4 g/dl (12.0-15.5); LYMPH # 1.4 10^3/uL (1.5-5.0); LYMPH % 31.2 % (24.0-44.0); MEAN CORPUSCULAR HEMOGLOBIN 26.8 pg (27.0-33.0); MEAN CORPUSCULAR VOLUME 83.6 fl (80.0-96.0); MONO # 0.4 10^3/uL (0.0-0.8); MONO % 9.2 % (0.0-5.0); NEUTROPHILS # 2.3 10^3/uL (1.5-8.5); NEUTROPHILS % 53.7 % (36.0-66.0); PLATELET COUNT, AUTOMATED 181 10^3/uL (150-450); RED BLOOD COUNT 4.63 10^6/uL (4.00-5.40); WHITE BLOOD COUNT 4.4 10^3/uL (4.0-10.0)
[2019-02-25 14:15] LABS: ALBUMIN 3.6 GM/DL (3.2-5.2); ALT/SGPT 44 U/L (12-78); BLOOD UREA NITROGEN 7 MG/DL (7-18); CALCIUM LEVEL 8.9 MG/DL (8.5-10.1); CARBON DIOXIDE LEVEL 26 MEQ/L (21-32); CHLORIDE LEVEL 104 MEQ/L (98-107); CREATININE FOR GFR 0.88 MG/DL (0.55-1.30); GLOMERULAR FILTRATION RATE > 60.0 (>58); GLUCOSE, FASTING 99 MG/DL (70-100); SODIUM LEVEL 139 MEQ/L (136-145); TOTAL PROTEIN 7.3 GM/DL (6.4-8.2)
== END ==
LOC: M SFHCPLAZ 11:37
PROVIDERS: ATTEND Physician Assistant Medical
DX: K62.5 Hemorrhage of anus and rectum (principal)

== ENCOUNTER → 2019-06-14 | Outpatient (REF) | payer BC ==
[2019-06-14 12:53] LABS: ALBUMIN 3.2 GM/DL (3.2-5.2); ALT/SGPT 47 U/L (12-78); BILIRUBIN,TOTAL 0.8 MG/DL (0.2-1.0); BLOOD UREA NITROGEN 22 MG/DL (7-18); CALCIUM LEVEL 8.6 MG/DL (8.5-10.1); CARBON DIOXIDE LEVEL 24 MEQ/L (21-32); CHLORIDE LEVEL 104 MEQ/L (98-107); CREATININE FOR GFR 0.92 MG/DL (0.55-1.30); GLOMERULAR FILTRATION RATE > 60.0 (>58); GLUCOSE, FASTING 103 MG/DL (70-100); NT-PRO BNP 108 PG/ML (<125); POTASSIUM SERUM 4.3 MEQ/L (3.5-5.1); SODIUM LEVEL 138 MEQ/L (136-145); TOTAL PROTEIN 6.7 GM/DL (6.4-8.2)
[2019-06-14 12:54] LABS: HEMOGLOBIN A1c 7.2 %
[2019-06-14 12:59] LABS: FOLLICLE STIMULATING HORMONE 3.7 mIU/mL
== END ==
LOC: M SFHCPLAZ 09:58
PROVIDERS: ATTEND Physician Assistant Medical
DX: N95.1 Menopausal and female climacteric states (principal); R63.1 Polydipsia; R63.5 Abnormal weight gain

== ENCOUNTER 2019-07-31 17:42 | Emergency (ER) | payer BC ==
[~2019-07-31] VITALS: Ht 157.5 cm; Wt 70.5 kg
[2019-07-31 17:43] VITALS: BP 138/86
[2019-07-31] MEDS ORDERED: AUGM875T28 PO (18:55)
[2019-07-31] MEDS ORDERED: OXYC-517 PO ×3 (18:55→18:59)
[2019-07-31] MEDS ORDERED: oxyCODONE 5MG TAB PO ONE (19:00)
== END 2019-07-31 19:04 | disposition home or self-care (01) ==
LOC: M ED 17:42
DX: K04.7 Periapical abscess without sinus (principal); G43.909 Migraine, unspecified, not intractable, without status migrainosus; K21.9 Gastro-esophageal reflux disease without esophagitis; K76.0 Fatty (change of) liver, not elsewhere classified; F41.9 Anxiety disorder, unspecified; F10.10 Alcohol abuse, uncomplicated; Z88.8 Allergy status to other drugs, medicaments and biological substances; Z79.899 Other long term (current) drug therapy

== ENCOUNTER 2019-08-05 14:32 | Emergency (ER) | payer BC ==
[~2019-08-05] VITALS: Ht 157.5 cm; Wt 68.5 kg
[~2019-08-05 14:32] MED LIST changes: +AUGM875T28 PO; +OXYC-517 PO
[2019-08-05] MEDS ORDERED: AMOX875T2 (14:55)
[2019-08-05] MEDS ORDERED: XIFA550T (14:55)
[2019-08-05] MEDS ORDERED: JANU25TA (14:55)
[2019-08-05] MEDS ORDERED: NS 1,000 ML IV ONE (15:30)
[2019-08-05 15:31] LABS: BASO # 0.1 10^3/uL (0.0-0.2); BASO % 1.8 % (0.0-1.0); EOS # 0.1 10^3/uL (0.0-0.5); EOS % 3.7 % (0.0-3.0); HEMOGLOBIN 11.9 g/dl (12.0-15.5); LYMPH # 0.7 10^3/uL (1.5-5.0); LYMPH % 25.5 % (24.0-44.0); MEAN CORPUSCULAR HGB CONC 31.3 g/dl (32.0-36.5); MEAN CORPUSCULAR VOLUME 79.8 fl (80.0-96.0); MONO # 0.3 10^3/uL (0.0-0.8); MONO % 11.8 % (0.0-5.0); NEUTROPHILS # 1.5 10^3/uL (1.5-8.5); NEUTROPHILS % 56.8 % (36.0-66.0); RED BLOOD COUNT 4.76 10^6/uL (4.00-5.40); WHITE BLOOD COUNT 2.7 10^3/uL (4.0-10.0)
[2019-08-05 15:36] LABS: PLATELET COUNT, AUTOMATED 67 10^3/uL (150-450)
[2019-08-05 15:48] LABS: INR 1.34; PROTHROMBIN TIME 16.3 SECONDS (11.8-14.0)
[2019-08-05 15:49] LABS: AMPHETAMINES LEVEL URINE NEGATIVE (NEGATIVE); BARBITURATES URINE NEGATIVE (NEGATIVE); BENZODIAZEPINES URINE NEGATIVE (NEGATIVE); CANNABINOIDS URINE NEGATIVE (NEGATIVE); COCAINE METABOLITE URINE NEGATIVE (NEGATIVE); METHADONE URINE NEGATIVE (NEGATIVE); OPIATES URINE NEGATIVE (NEGATIVE); PARTIAL THROMBOPLASTIN TIME 30.6 SECONDS (25.0-38.4); PHENCYCLIDINE URINE NEGATIVE (NEGATIVE)
[2019-08-05 16:00] LABS: ALBUMIN 4.1 GM/DL (3.2-5.2); ALT/SGPT 130 U/L (12-78); BILIRUBIN,DIRECT 0.9 MG/DL (0.0-0.2); BILIRUBIN,TOTAL 1.4 MG/DL (0.2-1.0); BLOOD UREA NITROGEN 7 MG/DL (7-18); CALCIUM LEVEL 8.6 MG/DL (8.5-10.1); CARBON DIOXIDE LEVEL 30 MEQ/L (21-32); CHLORIDE LEVEL 97 MEQ/L (98-107); CK-MB VALUE MASS < 1.0 NG/ML (<3.6); CPK CREATINE PHOSPHOKINASE 104 U/L (26-192); CREATININE FOR GFR 1.05 MG/DL (0.55-1.30); ETHYL ALCOHOL (ETHANOL) 0.041 % (0.000-0.010); GLOMERULAR FILTRATION RATE > 60.0 (>58); GLUCOSE, FASTING 172 MG/DL (70-100); LIPASE 60 U/L (73-393); MB/CK RELATIVE INDEX 0.96 (< OR =4); POTASSIUM SERUM 2.6 MEQ/L (3.5-5.1); SODIUM LEVEL 137 MEQ/L (136-145); TOTAL PROTEIN 8.1 GM/DL (6.4-8.2); TROPONIN I < 0.02 NG/ML (< 0.10)
[2019-08-05] MEDS ORDERED: POTASSIUM CHLORIDE 10 MEQ SR TABLET PO ONE (16:15)
[2019-08-05] MEDS ORDERED: KCL 10MEQ/100ML SWI (KRUN) 10 MEQ in IV 1 EA IV ONE (16:15)
[2019-08-05 18:00] VITALS: BP 109/69
[2019-08-05] MEDS ORDERED: KETOROLAC TROMETHAMINE 10 MG TAB PO ONE (18:00)
[2019-08-05] MEDS ORDERED: KETO10TAB PO (18:03)
--- NOTE | 2019-08-06 05:44 | ECGEPIP ---
[facility] - ED Test Date: 2019-08-05 Pat Name: KENYA CROOKS Department: Room: - Gender: Female Credit Card Associate: kelley : 1975 Requested By: Charbel Chirinos Order Number: [id number] Reading MD: Thor Mustafa Measurements Intervals [place] Rate: 76 P: 46 AK: 128 QRS: 49 QRSD: 98 T: 29 QT: 479 QTc: 542 Interpretive Statements SINUS RHYTHM Nonspecific ST-T wave abnormalities PROLONGED QT INTERVAL, decreased from tracing done 12-16-18 Electronically Signed on 08-06-2019 5:44:31 EST by Thor Mustafa
== END 2019-08-05 18:05 | disposition home or self-care (01) ==
LOC: M ED 14:32 → EDBD 14:32 → M ED 18:05
DX: E87.6 Hypokalemia (principal); K70.10 Alcoholic hepatitis without ascites; I10 Essential (primary) hypertension; F10.10 Alcohol abuse, uncomplicated; Z79.899 Other long term (current) drug therapy; Z88.8 Allergy status to other drugs, medicaments and biological substances
CPT/HCPCS: 80048; 80076; 80307; 81001; 82140; 82550; 82553; 83690; 84443; 84484; 85025; 85049; 85055; 85610; 85730; 93005; 93041; 94760; 96361; 96365; 99285; G0480

== ENCOUNTER 2019-08-15 23:44 | Inpatient (IN) | payer BC ==
[~2019-08-15] VITALS: Ht 157.5 cm; Wt 67.9 kg
[~2019-08-15 23:44] MED LIST changes: +AMOX875T2 PO; +JANU25TA PO; +KETO10TAB PO; +XIFA550T PO; +diphenhydrAMINE INJ 50MG/ML VIAL (J1200) As Ordered ONE
[2019-08-16] MEDS ORDERED: ONDANSETRON 4MG/2ML VIAL (J2405) IV ONE (00:15)
[2019-08-16 01:07] LABS: HEMOGLOBIN 13.2 g/dl (12.0-15.5); MEAN CORPUSCULAR HEMOGLOBIN 24.7 pg (27.0-33.0); MEAN CORPUSCULAR HGB CONC 33.8 g/dl (32.0-36.5); MEAN CORPUSCULAR VOLUME 72.9 fl (80.0-96.0); PLATELET COUNT, AUTOMATED 268 10^3/uL (150-450); RED BLOOD COUNT 5.35 10^6/uL (4.00-5.40); WHITE BLOOD COUNT 6.1 10^3/uL (4.0-10.0)
[2019-08-16] MEDS ORDERED: CLINDAMYCIN 600 MG in IV 1 EA IV ONE (02:00)
[2019-08-16] MEDS ORDERED: KETOROLAC 30 MG/ML VIAL (J1885) IV ONE (02:00)
[2019-08-16 02:32] LABS: ALBUMIN 3.8 GM/DL (3.2-5.2); BILIRUBIN,DIRECT 1.2 MG/DL (0.0-0.2); BILIRUBIN,TOTAL 1.8 MG/DL (0.2-1.0); CALCIUM LEVEL 7.7 MG/DL (8.5-10.1); CREATININE FOR GFR 1.37 MG/DL (0.55-1.30); ETHYL ALCOHOL (ETHANOL) 0.307 % (0.000-0.010); GLOMERULAR FILTRATION RATE 44.6 (>58); POTASSIUM SERUM 2.1 MEQ/L (3.5-5.1); TOTAL PROTEIN 7.6 GM/DL (6.4-8.2)
[2019-08-16 03:00] LABS: MAGNESIUM LEVEL 1.7 MG/DL (1.8-2.4)
[2019-08-16] MEDS ORDERED: POTASSIUM CHLORIDE 10 MEQ SR TABLET PO ONE ×2 (03:00→09:00)
[2019-08-16] MEDS ORDERED: KCL 10MEQ/100ML SWI (KRUN) 10 MEQ in IV 1 EA IV ONE (03:00)
[2019-08-16] MEDS ORDERED: BISA5TAB13 PO (03:09)
[2019-08-16] MEDS ORDERED: SERT25TA21 PO (03:09)
[2019-08-16] MEDS ORDERED: PATIENT COMMENTS (03:12)
[2019-08-16] MEDS ORDERED: MAG SULF 1GM/100ML (MAG RUN) 1 GM in IV 1 EA IV ONE (03:15)
[2019-08-16] MEDS ORDERED: DEXTROSE 50% 50 ML SYRINGE IV PRN (03:15)
[2019-08-16] MEDS ORDERED: GLUCAGON FOR INJ 1 MG VIAL (J1610) SC PRN (03:15)
[2019-08-16] MEDS ORDERED: GLUCOSE 4 GM CHEW TABLET PO PRN (03:15)
[2019-08-16] MEDS ORDERED: ALPRAZolam 0.25 MG TAB PO PRN (03:15)
[2019-08-16] MEDS ORDERED: PILL CUTTER 1 EACH XX PRN (03:45)
[2019-08-16 06:55] LABS: BASO # 0.1 10^3/uL (0.0-0.2); BASO % 1.3 % (0.0-1.0); EOS % 0.1 % (0.0-3.0); HEMATOCRIT 32.7 % (36.0-47.0); LYMPH # 1.6 10^3/uL (1.5-5.0); LYMPH % 23.4 % (24.0-44.0); MEAN CORPUSCULAR HEMOGLOBIN 25.2 pg (27.0-33.0); MEAN CORPUSCULAR HGB CONC 33.9 g/dl (32.0-36.5); MEAN CORPUSCULAR VOLUME 74.1 fl (80.0-96.0); MONO # 0.6 10^3/uL (0.0-0.8); MONO % 9.1 % (0.0-5.0); NEUTROPHILS # 4.4 10^3/uL (1.5-8.5); NEUTROPHILS % 65.8 % (36.0-66.0); PLATELET COUNT, AUTOMATED 217 10^3/uL (150-450); RED BLOOD COUNT 4.41 10^6/uL (4.00-5.40); WHITE BLOOD COUNT 6.7 10^3/uL (4.0-10.0)
[2019-08-16] MEDS: traMADol 50 MG TAB PO PRN ×4 (06:57→20:15)
[2019-08-16 07:06] LABS: HEMOGLOBIN 11.1 g/dl (12.0-15.5)
[2019-08-16 07:30] LABS: CALCIUM LEVEL 7.4 MG/DL (8.5-10.1); CREATININE FOR GFR 1.14 MG/DL (0.55-1.30); GLOMERULAR FILTRATION RATE 55.1 (>58); POTASSIUM SERUM 2.4 MEQ/L (3.5-5.1)
[2019-08-16] MEDS: HumaLOG INSULIN (NovoLOG) PER UNIT SC SCH ×4 (07:41→20:15)
[2019-08-16 08:24] VITALS: BP 123/67
--- NOTE | 2019-08-16 08:45 | REP ---
Panorex of the mandible and maxilla : Date old bowel is identified. There. Root canal procedures of the mandibular second and third molars on the right and maxillary third molar on the left. . No apical views root lucencies are identified. No dental caries are identified. The tooth roots of the maxillary incisors appear truncated, however, this could be imaging artifact. Electronically Signed by Marvin Greene MD 08/16/2019 08:36 A
[2019-08-16] MEDS: SERTRALINE HCL 25 MG TABLET PO SCH ×2 (09:00→09:41)
[2019-08-16] MEDS ORDERED: POTASSIUM CHL PWD 20 MEQ PACKET PO SCH (09:00)
[2019-08-16] MEDS ORDERED: SITagliptin 50 MG TAB (JANUVIA) PO SCH (09:00)
[2019-08-16] MEDS ORDERED: LORazepam 2 MG TAB PO PRN (09:00)
[2019-08-16] MEDS: rifAXIMin 550 MG TAB (XIFAXAN) PO SCH ×2 (09:41→20:14)
[2019-08-16] MEDS: PANTOPRAZOLE 40MG TAB (PROTONIX) PO SCH (09:41)
[2019-08-16] MEDS: FOLIC ACID 1 MG TAB PO SCH (09:41)
[2019-08-16] MEDS: THIAMINE 100 MG TAB PO SCH ×2 (09:41→20:15)
[2019-08-16] MEDS: MULTIVITAMINS/MINERALS THERAP 1 TAB PO SCH (09:41)
[2019-08-16] MEDS: NADOLOL 20MG TABLET PO SCH (09:42)
[2019-08-16] MEDS: CLINDAMYCIN 600 MG in IV 1 EA IV SCH ×3 (09:43→20:14)
[2019-08-16] MEDS: ONDANSETRON 4MG/2ML VIAL (J2405) IV PRN ×3 (09:50→23:16)
[2019-08-16] MEDS ORDERED: POTASSIUM CHL PWD 20 MEQ PACKET PO ONE (10:00)
--- NOTE | 2019-08-16 10:08 | IPNPDOC ---
Subjective Date Seen The patient was seen on 08/16/19. Subjective Chief Complaint/HPI There is no H & P available on this pt. She is c/o pain in B mouth assoc with reported abscessed teeth, reports has been seen as an outpt, but unable to tell me who has been treating her. SHe is requesting Morphine from the nurse and from me this morning. She states that tramadol just isn't controlling her pain. General: Reports: Fatigue Constitutional: Denies: Chills, Fever ENT: Denies: Head Aches Pulmonary: Denies: Dyspnea, Cough Cardiovascular: Denies: Chest Pain, Palpitations Gastrointestinal: Denies: Nausea, Vomiting, Diarrhea Neurological: Denies: Weakness Psych: Reports: Mood Normal Objective Physical Examination General Exam: Positive: No Acute Distress; Negative: Alert (asleep when I entered the room, awakens to voice, but appears sedated. ) ENT Exam: Positive: Mucous membr. moist/pink Neck Exam: Positive: Supple; Negative: Lymphadenopathy Chest Exam: Positive: Clear to auscultation, Normal air movement Heart Exam: Positive: Rate Normal, Normal S1, Normal S2 Abdomen Exam: Positive: Normal bowel sounds, Soft; Negative: Tenderness Extremity Exam: Negative: Edema Neuro Exam: Positive: Normal Speech Psych Exam: Positive: Mental status NL, Mood NL Assessment /Plan Problems (1) Alcohol abuse with intoxication Status: Acute Problem Text: CIWA protocol 08/16 0.31 (2) Hyponatremia Status: Acute Problem Text: Pt with h/o alcoholic cirrhosis, presented to [facility] ED with intox with EtOH level of 0.3, she has been started on CIWA. Enc hydration, K is being replaced, will start Ca supplement as well. (3) Hypocalcemia Status: Acute Problem Text: See above (4) Hypokalemia Status: Resolved Problem Text: HD K 20 BID c epifanio 100 BID (5) Alcoholic hepatitis Status: Acute Problem Text: On rifaximin, Nadolol// epifanio 100 BID held 2 poor po (6) Pain, dental Status: Acute Problem Text: This is really the pts primary concern this morning, she has had a dental XR without concerning findings, will obtain CT this morning, she was started on Clinda on admission. She is afebrile without leukocytosis. 08/16 CT MF c contrast s dental abscess (7) Alcoholic cirrhosis of liver without ascites Status: Chronic Problem Text: See above. Plan/VTE VTE Prophylaxis Ordered?: Yes VS, I&O, 24H, Fishbone Vital Signs/I&O Vital Signs Date Time Temp Pulse Resp B/P (MAP) Pulse Ox O2 Delivery O2 Flow Rate FiO2 08/16/19 08:24 80 123/67 08/16/19 08:24 98.2 18 99 Room Air I&O- Last 24 Hours up to 6 AM0 08/16/19 06:00 Intake Total 300 ml Balance 300 ml Laboratory Data 24H LABS Laboratory Tests 2 08/16/19 00:53: Nucleated Red Blood Cells % (auto) 0.0, Anion Gap 18H, Glomerular Filtration Rate 44.6L, Calcium Level 7.7L, Magnesium Level 1.7L, Total Bilirubin 1.8H, Direct Bilirubin 1.2H, Aspartate Amino Transf (AST/SGOT) 139H, Alanine Aminotransferase (ALT/SGPT) 79H, Alkaline Phosphatase 178H, Total Protein 7.6, Albumin 3.8, Albumin/Globulin Ratio 1.00, Ethyl Alcohol Level 0.307H 08/16/19 03:04: POC pH (Misc Panel) 7.488H, POC Base Excess (Misc Panel) 2.0, POC Saturated Percent O2 (Misc) 98, POC pO2 (Misc Panel) 97.0, POC pCO2 (Misc Panel) 33.3L, POC HCO3 (Misc Panel) 25.3, POC Total CO2 (Misc Panel) 26.0 08/16/19 06:43: Nucleated Red Blood Cells % (auto) 0.0, Anion Gap 16, Glomerular Filtration Rate 55.1L, Calcium Level 7.4L, Immature Granulocyte % (Auto) 0.3, Neutrophils (%) (Auto) 65.8, Lymphocytes (%) (Auto) 23.4L, Monocytes (%) (Auto) 9.1H, Eosinophils (%) (Auto) 0.1, Basophils (%) (Auto) 1.3H, Neutrophils # (Auto) 4.4, Lymphocytes # (Auto) 1.6, Monocytes # (Auto) 0.6, Eosinophils # (Auto) 0.0, Basophils # (Auto) 0.1, Whole Blood Ionized Calcium 3.5*L 08/16/19 07:30: Bedside Glucose (Misc Panel) 146H CBC/BMP Laboratory Tests 08/16/19 00:53 08/16/19 06:43 PATITO COLORADO PA-C Aug 16, 2019 10:08 Victor Hugo Singh M.D. Aug 16, 2019 17:23
--- NOTE | 2019-08-16 11:09 | REPVR ---
PROCEDURE INFORMATION: Exam: CT Maxillofacial Without Contrast Exam date and time: 08/16/2019 10:45 AM Age: 43 years old Clinical indication: Other: Dental pain; Additional info: Tooth pain, concern for abscess TECHNIQUE: Imaging protocol: Computed tomography images of the face without contrast. Radiation optimization: All CT scans at this facility use at least one of these dose optimization techniques: automated exposure control; mA and/or kV adjustment per patient size (includes targeted exams where dose is matched to clinical indication); or iterative reconstruction. COMPARISON: No relevant prior studies available. FINDINGS: Orbits: Orbits are normal. Globes are unremarkable. Sinuses: Normal. No air-fluid levels. Bones/joints: No acute fracture. Dental: No periapical abscesses identified. Soft tissues: No evidence of a drainable soft tissue abscess. Increased attenuation in the premaxillary and premandibular soft tissues, most likely the result of prior augmentation injection. IMPRESSION: No evidence of dental abscess. Electronically signed by: Eboni Cornejo On 08/16/2019 11:09:31 AM
--- NOTE | 2019-08-16 11:14 | ECGEPIP ---
[facility] - ED Test Date: 2019-08-16 Pat Name: KENYA CROOKS Department: Room: [place] [address] Gender: Female Whe[place]: lisandro : 1975 Requested By: LYNNETTE Shipman Order Number: [id number] Reading MD: Rosario Foster Measurements Intervals Ragland Rate: 77 P: 58 OH: 120 QRS: 75 QRSD: 98 T: 45 QT: 431 QTc: 491 Interpretive Statements SINUS RHYTHM NONSPECIFIC ST & T-WAVE ABNORMALITY Prolonged QT interval Electronically Signed on 08-16-2019 11:14:32 EST by Rosario Foster
[2019-08-16] MEDS: ACAMPROSATE CALCIUM 333 MG TABLET (CAMPRAL) PO SCH ×3 (12:38→23:15)
[2019-08-16 12:50] LABS: CALCIUM LEVEL 7.8 MG/DL (8.5-10.1); CREATININE FOR GFR 1.15 MG/DL (0.55-1.30); GLOMERULAR FILTRATION RATE 54.6 (>58)
[2019-08-16] MEDS: BISACODYL 5 MG TAB PO PRN (14:17)
[2019-08-16 14:20] VITALS: BP 118/65
[2019-08-16 14:21] VITALS: BP 118/65
[2019-08-16] MEDS: POTASSIUM CHL PWD 20 MEQ PACKET PO SCH ×2 (17:38→20:14)
--- NOTE | 2019-08-16 19:22 | HPE ---
DATE OF ADMISSION: 08/16/2019 CHIEF COMPLAINT: Lower mandibular tooth pain, alcohol intoxication. HISTORY OF PRESENTING ILLNESS: This is a 43-year-old alcoholic with a history of alcoholic liver cirrhosis, electrolyte abnormalities, hypokalemia, hypomagnesemia, presented to the emergency room with complaints of dental pain that started two weeks ago and has been self-medicating with alcohol for pain. Patient reached to her primary care physician, Taylor, who prescribed Augmentin. Patient had been taking Augmentin since Friday. No fever or chills. Blood alcohol level of 0.31. Called 911 and presented to the emergency room. Per emergency room (ER) physician, dental examination was unremarkable. She was found to have electrolyte abnormalities, with acute kidney injury, hypokalemia and hyponatremia. Hospitalist was called to admit. Per the boyfriend at the bedside, patient had not been confused. No complaints of headaches, changes in vision or cognitive impairment despite a sodium of 126. Her diuretics have been held due to acute kidney injury and she has been given intravenous potassium as well as intravenous (IV) magnesium and intravenous clindamycin. PAST MEDICAL HISTORY: 1. Alcoholic liver cirrhosis. 2. Electrolyte abnormalities. 3. Hypokalemia. 4. Hypomagnesemia. 5. Esophageal varices. 6. Chronic wound on the right leg. 7. Hypertension. 8. Anxiety. 9. Gastroesophageal reflux disease. PAST SURGICAL HISTORY: 1. Breast implants. 2. Tummy tuck. HOME MEDICATIONS: - Augmentin 875 mg by mouth twice a day prescribed Friday. - Lasix 20 mg twice a day - spironolactone 100 mg twice a day - acamprosate 333 mg three times a day - alprazolam 0.25 mg as needed for anxiety - bisacodyl 5 mg as directed - Vistaril 25 mg at bedtime - Nadolol 20 mg daily - Protonix 40 mg daily - Potassium chloride 20 mEq twice a day - Xifaxan 550 mg twice a day - sertraline 25 mg daily - Januvia 25 mg daily ALLERGIES: ACETAMINOPHEN, BUSPIRONE. SOCIAL HISTORY: Patient is a known alcoholic, continues to drink alcohol and presents today intoxicated, with a blood alcohol level of 0.3, has tattoos. No drug use. CODE STATUS: FULL CODE. FAMILY HISTORY: Unknown. REVIEW OF SYSTEMS: Per history of present illness (HPI). A 12 point system otherwise negative. PHYSICAL EXAMINATION: VITAL SIGNS: Temperature 97.4, pulse 81, respiratory rate 18, blood pressure 130/75, 100% on room air. GENERAL: Patient is intoxicated, smells of alcohol. Some slight slurring. Some lethargy. Anicteric sclerae. No jaundice. Pupils are round and reactive. Neck is supple. No cervical lymphadenopathy. No overt abscess. Noted. LUNGS: Clear to auscultation. No wheezing, rales or rhonchi. HEART: S1, S2. Sinus rhythm. ABDOMEN: Distended. Positive bowel sounds. Soft. EXTREMITIES: No cyanosis or clubbing. LABORATORY DATA: White count 6, hemoglobin 13, hematocrit 39, platelet count 368. Sodium 128, potassium 2, chloride 84, bicarbonate 24, BUN 21, creatinine 1.37, glucose 141, magnesium 1.7, calcium 7.7. Total bilirubin 1.8, direct bilirubin 1.2, AST 139, ALT 79, alkaline phosphatase 178, total protein 7.6, albumin 3.6. Blood alcohol level 0.307. Panoramic orthopantogram pending. ASSESSMENT AND PLAN: This is a 43-year-old chronic alcoholic with alcoholic liver cirrhosis, electrolyte abnormalities, active alcohol abuse, presents to the emergency room with complaints of dental pain in the bilateral lower molar area, self- medicating for the past two weeks with alcohol, called 911 due to severe pain. States that she has not been drinking, but blood alcohol level was 0.31. Per ER physician, her teeth were unimpressive; however, routine blood tests showed sodium of 126, hypokalemia of 2.1 and acute kidney injury. Hospitalist service was called to admit the patient. IMPRESSION: 1. Dental pain. Rule out abscess. Patient was due to see an oral- maxillofacial surgeon in [place] in [place] today. She has been given intravenous clindamycin, which we will continue. We will obtain a panoramic orthopantogram pending. Defer to [facility] provider today to consult oral-maxillofacial surgeon for teeth extraction in case abscess is noted and severe dental caries. Currently on intravenous clindamycin. 2. Acute alcohol intoxication with blood alcohol level of 0.307. Patient denied any alcohol use, has alcohol dependency. Monitor for withdrawal symptoms over the next few days. 3. Alcoholic liver cirrhosis. Due to acute kidney injury, patient's Nadolol will be held temporarily. 4. Electrolyte abnormalities, hypokalemia, hypomagnesemia. Repleted. 5. Hyponatremia. Most likely secondary to chronic liver cirrhosis. 6. Deep venous thrombosis (DVT) prophylaxis. Compression stockings. MTDD
[2019-08-16 19:51] VITALS: BP 117/70
[2019-08-16 20:00] VITALS: BP 117/70
[2019-08-16] MEDS: hydrOXYzine 25 MG TAB PO SCH (20:15)
[2019-08-16] MEDS ORDERED: SENOKOT S TAB PO PRN (20:30)
[2019-08-16] MEDS: LACTULOSE 20 GM/30 ML SYRUP UD PO PRN (21:03)
[2019-08-17] MEDS: CLINDAMYCIN 600 MG in IV 1 EA IV SCH ×3 (02:28→15:20)
[2019-08-17] MEDS: traMADol 50 MG TAB PO PRN ×4 (02:29→20:56)
[2019-08-17 04:00] VITALS: BP_SYST 117; BP_DIAS 69; BP_DIAS 70
[2019-08-17 06:58] LABS: BASO # 0.1 10^3/uL (0.0-0.2); BASO % 2.2 % (0.0-1.0); EOS # 0.1 10^3/uL (0.0-0.5); EOS % 2.7 % (0.0-3.0); HEMATOCRIT 35.1 % (36.0-47.0); HEMOGLOBIN 11.6 g/dl (12.0-15.5); LYMPH # 1.3 10^3/uL (1.5-5.0); LYMPH % 32.2 % (24.0-44.0); MEAN CORPUSCULAR HEMOGLOBIN 24.6 pg (27.0-33.0); MEAN CORPUSCULAR VOLUME 74.5 fl (80.0-96.0); MONO # 0.6 10^3/uL (0.0-0.8); MONO % 13.5 % (0.0-5.0); NEUTROPHILS % 48.9 % (36.0-66.0); PLATELET COUNT, AUTOMATED 134 10^3/uL (150-450); RED BLOOD COUNT 4.71 10^6/uL (4.00-5.40); WHITE BLOOD COUNT 4.1 10^3/uL (4.0-10.0)
[2019-08-17 07:26] LABS: ERYTHROCYTE SEDIMENTATION RATE 13 mm/hr (0-20)
[2019-08-17 07:32] LABS: BLOOD UREA NITROGEN 14 MG/DL (7-18); C REACTIVE PROTEIN QUANTITATIV < 0.30 MG/DL (0.00-0.30); CALCIUM LEVEL 7.8 MG/DL (8.5-10.1); CARBON DIOXIDE LEVEL 29 MEQ/L (21-32); CHLORIDE LEVEL 92 MEQ/L (98-107); CREATININE FOR GFR 1.12 MG/DL (0.55-1.30); GLOMERULAR FILTRATION RATE 56.3 (>58); GLUCOSE, FASTING 131 MG/DL (70-100); MAGNESIUM LEVEL 1.4 MG/DL (1.8-2.4); POTASSIUM SERUM 2.1 MEQ/L (3.5-5.1); SODIUM LEVEL 133 MEQ/L (136-145)
[2019-08-17] MEDS: POTASSIUM CHL PWD 20 MEQ PACKET PO SCH ×3 (08:18→20:54)
[2019-08-17] MEDS: HumaLOG INSULIN (NovoLOG) PER UNIT SC SCH ×4 (08:18→21:00)
[2019-08-17] MEDS: ONDANSETRON 4MG/2ML VIAL (J2405) IV PRN ×2 (08:18→17:57)
[2019-08-17] MEDS: THIAMINE 100 MG TAB PO SCH ×2 (08:19→20:55)
[2019-08-17] MEDS: MULTIVITAMINS/MINERALS THERAP 1 TAB PO SCH (08:19)
[2019-08-17] MEDS: PANTOPRAZOLE 40MG TAB (PROTONIX) PO SCH (08:19)
[2019-08-17] MEDS: rifAXIMin 550 MG TAB (XIFAXAN) PO SCH ×2 (08:19→20:55)
[2019-08-17] MEDS: FOLIC ACID 1 MG TAB PO SCH (08:19)
[2019-08-17] MEDS: SERTRALINE HCL 25 MG TABLET PO SCH (08:19)
[2019-08-17] MEDS: NADOLOL 20MG TABLET PO SCH (08:22)
--- NOTE | 2019-08-17 08:22 | IPNPDOC ---
Subjective Date Seen The patient was seen on 08/17/19. Subjective Chief Complaint/HPI Continues to c/o right lower posterior jaw pain and nausea. Constitutional: Denies: Chills, Fever Pulmonary: Denies: Dyspnea Cardiovascular: Denies: Chest Pain, Palpitations Gastrointestinal: Reports: Nausea; Denies: Vomiting, Abdominal Pain, Diarrhea, Constipation Objective Physical Examination General Exam: Positive: Alert, No Acute Distress ENT Exam: Positive: Mucous membr. moist/pink, Other ENT (inspection of right posterior teeth and gumline do not show dental caries or inflammation. No visible abscess. Her posterior pharynx is slightly erythematous wihtout onsilar swelling. no exudates. ) Neck Exam: Positive: Supple, Other (Tender right cervical chain adenopathy without palpable nodules or masses. ) Chest Exam: Positive: Clear to auscultation, Normal air movement Heart Exam: Positive: Rate Normal, Regular Rhythm, Normal S1, Normal S2 Abdomen Exam: Positive: Normal bowel sounds, Soft; Negative: Tenderness Extremity Exam: Negative: Edema Neuro Exam: Positive: Normal Speech Psych Exam: Positive: Mental status NL, Mood NL Assessment /Plan Problems (1) Parotitis Status: Chronic Problem Text: slow improvement over last ~4W favor baseline KCS-chronic xerostomia 08/17 check sialogram, check autoimmune llamas, no obvious Stensen duct stone by CT, continue moist heat/massage/tart candy (2) Hypokalemia Status: Resolved Problem Text: 08/17 only up to 2.3 p 4 K runs and Mg to 1.7 p 1 gm; therefore, change K back to 40 tabs (refusing powder) TID and repeat K runs x 4, give another Mg 1 gm 08/17 - K+ dropped again = 2.1 today. Mag = 1.4. Give mag anay nd K runs. Continue HD K 20 BID c epifanio 100 BID (3) Pain, dental Status: Acute Problem Text: 08/17 - This is really the pts primary concern this morning, she has had a dental XR without concerning findings, Max-facial CT also unremarkable without abscess. She is convinced there is a dental issue and is requesting an oral surgeon evaluation. Imaging showed previous root canals but no obvious abnormalities to explain her pain. Oral exam is also fairly unremarkable. Very tender cervical lymph nodes without obvious mass or nodules, but will get CT neck. She was started on Clinda on admission, but no improvement in pain. . S he is afebrile without leukocytosis. (4) Alcohol abuse with intoxication Status: Acute Problem Text: 08/17 - No signs of withdrawal currently CIWA protocol 08/16 0.31 (5) Hyponatremia Status: Acute Response to Treatment: Improving Problem Text: 08/17 - improving Pt with h/o alcoholic cirrhosis, presented to [facility] ED with intox with EtOH level of 0.3, she has been started on CIWA. Enc hydration, K is being replaced. Ca supplement as well. (6) Hypocalcemia Status: Acute Problem Text: See above (7) Alcoholic hepatitis Status: Acute Problem Text: On rifaximin, Nadolol// epifanio 100 BID held 2 poor po (8) Alcoholic cirrhosis of liver without ascites Status: Chronic Problem Text: See above. Plan/VTE VTE Prophylaxis Ordered?: Yes VS, I&O, 24H, Fishbone Vital Signs/I&O Vital Signs Date Time Temp Pulse Resp B/P (MAP) Pulse Ox O2 Delivery O2 Flow Rate FiO2 08/17/19 06:22 17 Room Air 08/17/19 04:00 97.6 64 117/69 (85) 99 I&O- Last 24 Hours up to 6 AM 08/17/19 06:00 Intake Total 1420 ml Balance 1420 ml Laboratory Data 24H LABS Laboratory Tests 2 08/16/19 11:59: Erythrocyte Sedimentation Rate 21H 08/16/19 12:00: Anion Gap 14, Glomerular Filtration Rate 54.6L, Calcium Level 7.8L 08/16/19 12:14: Bedside Glucose (Misc Panel) 171H 08/16/19 16:46: Bedside Glucose (Misc Panel) 186H 08/16/19 19:33: Bedside Glucose (Misc Panel) 118H 08/17/19 06:35: Immature Granulocyte % (Auto) 0.5, Neutrophils (%) (Auto) 48.9, Lymphocytes (%) (Auto) 32.2, Monocytes (%) (Auto) 13.5H, Eosinophils (%) (Auto) 2.7, Basophils (%) (Auto) 2.2H, Neutrophils # (Auto) 2.0, Lymphocytes # (Auto) 1.3L, Monocytes # (Auto) 0.6, Eosinophils # (Auto) 0.1, Basophils # (Auto) 0.1, Nucleated Red Blood Cells % (auto) 0.0, Erythrocyte Sedimentation Rate 13, Anion Gap 12, Glomerular Filtration Rate 56.3L, Calcium Level 7.8L, Magnesium Level 1.4L, C-Reactive Protein, Quantitative < 0.30 CBC/BMP Laboratory Tests 08/16/19 12:00 08/17/19 06:35 SILVA JACKMAN PA-C Aug 17, 2019 08:21 Victor Hugo Singh M.D. Aug 17, 2019 17:32
[2019-08-17] MEDS: ACAMPROSATE CALCIUM 333 MG TABLET (CAMPRAL) PO SCH ×3 (08:23→20:55)
[2019-08-17] MEDS ORDERED: ISOVUE-370 76% 100ML VIAL (Q9967) As Ordered ONE (08:32)
[2019-08-17 09:00] VITALS: BP 122/74
[2019-08-17] MEDS ORDERED: MAG SULF 1GM/100ML (MAG RUN) 1 GM in IV 1 EA IV ONE ×2 (09:00→20:00)
--- NOTE | 2019-08-17 09:11 | REPVR ---
PROCEDURE INFORMATION: Exam: CT Neck With Contrast Exam date and time: 08/17/2019 8:45 AM Age: 43 years old Clinical indication: Neck pain; Additional info: Severe right neck pain with adenopathy TECHNIQUE: Imaging protocol: Computed tomography images of the neck with intravenous contrast. Radiation optimization: All CT scans at this facility use at least one of these dose optimization techniques: automated exposure control; mA and/or kV adjustment per patient size (includes targeted exams where dose is matched to clinical indication); or iterative reconstruction. Contrast material: ISO 370; Contrast volume: 75 ml; Contrast route: IV; COMPARISON: No relevant prior studies available. FINDINGS: Nasopharynx: Unremarkable. Oropharynx: Unremarkable. No significant tonsillar enlargement. Hypopharynx: Unremarkable. Larynx: Unremarkable. Normal epiglottis. Retropharyngeal space: Unremarkable. Submandibular/Parotid glands: Normal. Glands are normal in size. Thyroid: Normal. No enlarged or calcified nodules. Lymph nodes: Unremarkable. No lymphadenopathy. Trachea: Visualized trachea is unremarkable. Lungs: Unremarkable as visualized. Vasculature: There is an aberrant right subclavian artery. Bones/joints: Unremarkable. No acute fracture. Soft tissues: There is what appears to be heterotopic ossification within the soft tissues overlying the ventral margins of the mandible and maxilla. IMPRESSION: 1. No acute findings are identified. Please see above report for incidental findings. 2. There is what appears to be heterotopic ossification within the soft tissues overlying the ventral margins of the mandible and maxilla. Please correlate with trauma history. Please assess whether this may account for patient's symptoms. Electronically signed by: Angelito Wheeler On 08/17/2019 09:11:12 AM
[2019-08-17] MEDS: KCL 10MEQ/100ML SWI (KRUN) 10 MEQ in IV 1 EA IV SCH ×7 (10:30→23:48)
[2019-08-17] MEDS: CHLORHEXIDINE GLUCONATE 0.12 % 15ML UDC (PERIDEX ORAL RINSE) SSP SCH ×2 (11:30→20:54)
[2019-08-17 15:45] VITALS: BP 123/64
[2019-08-17] MEDS ORDERED: POTASSIUM CHLORIDE 10 MEQ SR TABLET PO SCH (16:00)
[2019-08-17 16:22] LABS: MAGNESIUM LEVEL 1.7 MG/DL (1.8-2.4); POTASSIUM SERUM 2.3 MEQ/L (3.5-5.1)
[2019-08-17] MEDS ORDERED: KCL 10MEQ/100ML SWI (KRUN) 10 MEQ in IV 1 EA IV ONE ×4 (19:15)
[2019-08-17] MEDS ORDERED: KCL 10MEQ/100ML SWI (KRUN) 10 MEQ in IV 1 EA IV SCH (19:15)
[2019-08-17 20:00] VITALS: BP 123/88
[2019-08-17] MEDS ORDERED: traMADol 50 MG TAB PO PRN (20:30)
[2019-08-17] MEDS: hydrOXYzine 25 MG TAB PO SCH (20:56)
[2019-08-17 22:00] VITALS: BP 123/88
[2019-08-18] MEDS: KCL 10MEQ/100ML SWI (KRUN) 10 MEQ in IV 1 EA IV SCH ×3 (00:54→10:44)
[2019-08-18 06:00] VITALS: BP 120/66
[2019-08-18] MEDS: HumaLOG INSULIN (NovoLOG) PER UNIT SC SCH ×4 (07:30→19:55)
[2019-08-18 07:56] LABS: ALBUMIN 3.7 GM/DL (3.2-5.2); ALT/SGPT 94 U/L (12-78); BILIRUBIN,TOTAL 2.4 MG/DL (0.2-1.0); BLOOD UREA NITROGEN 8 MG/DL (7-18); CALCIUM LEVEL 8.6 MG/DL (8.5-10.1); CARBON DIOXIDE LEVEL 30 MEQ/L (21-32); CHLORIDE LEVEL 95 MEQ/L (98-107); CREATININE FOR GFR 1.04 MG/DL (0.55-1.30); GLOMERULAR FILTRATION RATE > 60.0 (>58); GLUCOSE, FASTING 110 MG/DL (70-100); POTASSIUM SERUM 2.6 MEQ/L (3.5-5.1); SODIUM LEVEL 132 MEQ/L (136-145)
--- NOTE | 2019-08-18 08:26 | IPNPDOC ---
Subjective Date Seen The patient was seen on 08/18/19. Subjective Chief Complaint/HPI Less jaw pain today. Wants to go home Constitutional: Denies: Chills, Fever Pulmonary: Denies: Dyspnea, Cough Cardiovascular: Denies: Chest Pain, Palpitations, Orthopnea Gastrointestinal: Denies: Nausea, Vomiting, Abdominal Pain, Diarrhea, Constipation Objective Physical Examination General Exam: Positive: Alert, No Acute Distress ENT Exam: Positive: Mucous membr. moist/pink, Other ENT (inspection of right posterior teeth and gumline do not show dental caries or inflammation. No vis ible abscess. Her posterior pharynx is slightly erythematous wihtout tonsilar swelling. no exudates. ) Neck Exam: Positive: Supple, Other (Tender right cervical chain adenopathy without palpable nodules or masses. ) Chest Exam: Positive: Clear to auscultation, Normal air movement Heart Exam: Positive: Rate Normal, Regular Rhythm, Normal S1, Normal S2 Abdomen Exam: Positive: Normal bowel sounds, Soft; Negative: Tenderness Extremity Exam: Negative: Edema Neuro Exam: Positive: Normal Speech Psych Exam: Positive: Mental status NL, Mood NL Assessment /Plan Problems (1) Hypokalemia Status: Resolved Problem Text: 08/18 - K+ = 2.6 today - give further potassium. Mag has normalized 08/17 only up to 2.3 p 4 K runs and Mg to 1.7 p 1 gm; therefore, change K back to 40 tabs (refusing powder) TID and repeat K runs x 4, give another Mg 1 gm 08/17 - K+ dropped again = 2.1 today. Mag = 1.4. Give mag anay nd K runs. Continue HD K 20 BID c epifanio 100 BID (2) Parotitis Status: Chronic Problem Text: slow improvement over last ~4W favor baseline KCS-chronic xerostomia 08/17 check sialogram, check autoimmune llamas, no obvious Stensen duct stone by CT, continue moist heat/massage/tart candy (3) Pain, dental Status: Acute Problem Text: 08/17 - This is really the pts primary concern this morning, she has had a dental XR without concerning findings, Max-facial CT also unremarkable without abscess. She is convinced there is a dental issue and is requesting an oral surgeon evaluation. Imaging showed previous root canals but no obvious abnormalities to explain her pain. Oral exam is also fairly unremarkable. Very tender cervical lymph nodes without obvious mass or nodules, but will get CT neck. She was started on Clinda on admission, but no improvement in pain. . She is afebrile without leukocytosis. (4) Alcohol abuse with intoxication Status: Acute Problem Text: 08/17 - No signs of withdrawal currently CIWA protocol 08/16 0.31 (5) Hyponatremia Status: Acute Response to Treatment: Improving Problem Text: 08/17 - improving Pt with h/o alcoholic cirrhosis, presented to [facility] ED with intox with EtOH level of 0.3, she has been started on CIWA. Enc hydration, K is being replaced. Ca supplement as well. (6) Hypocalcemia Status: Acute Problem Text: See above (7) Alcoholic hepatitis Status: Acute Problem Text: On rifaximin, Nadolol// epifanio 100 BID held 2 poor po (8) Alcoholic cirrhosis of liver without ascites Status: Chronic Problem Text: See above. Plan/VTE VTE Prophylaxis Ordered?: Yes VS, I&O, 24H, Fishbone Vital Signs/I&O Vital Signs Date Time Temp Pulse Resp B/P (MAP) Pulse Ox O2 Delivery O2 Flow Rate FiO2 08/18/19 06:00 97.9 55 17 120/66 (84) 97 Room Air I&O- Last 24 Hours up to 6 AM 08/18/19 06:00 Intake Total 660 ml Balance 660 ml Laboratory Data 24H LABS Laboratory Tests 2 08/17/19 12:07: Bedside Glucose (Misc Panel) 202H 08/17/19 15:54: Magnesium Level 1.7L 08/17/19 17:48: Bedside Glucose (Misc Panel) 144H 08/17/19 21:12: Bedside Glucose (Misc Panel) 166H 08/18/19 06:39: Anion Gap 7L, Glomerular Filtration Rate > 60.0, Calcium Level 8.6, Magnesium Level 2.0, Total Bilirubin 2.4H, Aspartate Amino Transf (AST/SGOT) 216H, Alanine Aminotransferase (ALT/SGPT) 94H, Alkaline Phosphatase 185H, Total Protein 7.0, Albumin 3.7, Albumin/Globulin Ratio 1.12 CBC/BMP Laboratory Tests 08/17/19 15:54 08/18/19 06:39 SILVA JACKMAN PA-C Aug 18, 2019 08:26
[2019-08-18] MEDS: CHLORHEXIDINE GLUCONATE 0.12 % 15ML UDC (PERIDEX ORAL RINSE) SSP SCH ×2 (08:49→20:39)
[2019-08-18] MEDS: traMADol 50 MG TAB PO PRN ×3 (08:49→20:41)
[2019-08-18] MEDS: POTASSIUM CHL PWD 20 MEQ PACKET PO SCH ×3 (08:50→20:39)
[2019-08-18] MEDS: ACAMPROSATE CALCIUM 333 MG TABLET (CAMPRAL) PO SCH ×3 (08:50→20:40)
[2019-08-18] MEDS: THIAMINE 100 MG TAB PO SCH ×2 (08:50→20:40)
[2019-08-18] MEDS: MULTIVITAMINS/MINERALS THERAP 1 TAB PO SCH (08:50)
[2019-08-18] MEDS: SERTRALINE HCL 25 MG TABLET PO SCH (08:50)
[2019-08-18] MEDS: rifAXIMin 550 MG TAB (XIFAXAN) PO SCH ×2 (08:50→20:39)
[2019-08-18] MEDS: FOLIC ACID 1 MG TAB PO SCH (08:50)
[2019-08-18] MEDS: PANTOPRAZOLE 40MG TAB (PROTONIX) PO SCH (08:50)
[2019-08-18] MEDS: ONDANSETRON 4MG/2ML VIAL (J2405) IV PRN (09:09)
[2019-08-18] MEDS: NADOLOL 20MG TABLET PO SCH (10:45)
[2019-08-18] MEDS: BISACODYL 5 MG TAB PO PRN (10:46)
[2019-08-18] MEDS: LACTULOSE 20 GM/30 ML SYRUP UD PO PRN (10:47)
[2019-08-18 12:20] LABS: HEPATITIS A ANTIBODY IGM NEGATIVE (NEGATIVE); HEPATITIS B CORE ANTIBODY IGM NEGATIVE (NEGATIVE); HEPATITIS B SURFACE ANTIGEN NEGATIVE (NEGATIVE)
[2019-08-18 14:00] VITALS: BP 99/59
[2019-08-18] MEDS: hydrOXYzine 25 MG TAB PO SCH (20:41)
[2019-08-18 22:00] VITALS: BP 118/67
[2019-08-19] MEDS: LACTULOSE 20 GM/30 ML SYRUP UD PO PRN (05:15)
[2019-08-19] MEDS: traMADol 50 MG TAB PO PRN ×2 (05:16→11:30)
[2019-08-19 06:00] VITALS: BP 128/82
[2019-08-19 07:18] LABS: ALBUMIN 3.6 GM/DL (3.2-5.2); ALT/SGPT 109 U/L (12-78); BILIRUBIN,TOTAL 2.4 MG/DL (0.2-1.0); BLOOD UREA NITROGEN 7 MG/DL (7-18); CALCIUM LEVEL 8.6 MG/DL (8.5-10.1); CARBON DIOXIDE LEVEL 27 MEQ/L (21-32); CHLORIDE LEVEL 103 MEQ/L (98-107); CREATININE FOR GFR 1.01 MG/DL (0.55-1.30); GLOMERULAR FILTRATION RATE > 60.0 (>58); GLUCOSE, FASTING 138 MG/DL (70-100); MAGNESIUM LEVEL 1.7 MG/DL (1.8-2.4); POTASSIUM SERUM 3.6 MEQ/L (3.5-5.1); SODIUM LEVEL 136 MEQ/L (136-145); TOTAL PROTEIN 6.9 GM/DL (6.4-8.2)
[2019-08-19] MEDS: CHLORHEXIDINE GLUCONATE 0.12 % 15ML UDC (PERIDEX ORAL RINSE) SSP SCH (08:21)
[2019-08-19] MEDS: ACAMPROSATE CALCIUM 333 MG TABLET (CAMPRAL) PO SCH (08:21)
[2019-08-19] MEDS: HumaLOG INSULIN (NovoLOG) PER UNIT SC SCH ×2 (08:21→12:00)
[2019-08-19 08:22] VITALS: BP 128/82
[2019-08-19] MEDS: MULTIVITAMINS/MINERALS THERAP 1 TAB PO SCH (08:22)
[2019-08-19] MEDS: rifAXIMin 550 MG TAB (XIFAXAN) PO SCH (08:22)
[2019-08-19] MEDS: PANTOPRAZOLE 40MG TAB (PROTONIX) PO SCH (08:22)
[2019-08-19] MEDS: NADOLOL 20MG TABLET PO SCH (08:22)
[2019-08-19] MEDS: POTASSIUM CHL PWD 20 MEQ PACKET PO SCH (08:22)
[2019-08-19] MEDS: FOLIC ACID 1 MG TAB PO SCH (08:22)
[2019-08-19] MEDS: SERTRALINE HCL 25 MG TABLET PO SCH ×2 (08:22→08:23)
[2019-08-19] MEDS ORDERED: MAGNESIUM OXIDE 400 MG TAB (MAG-OX) PO SCH (09:00)
[2019-08-19] MEDS ORDERED: MAG SULF 1GM/100ML (MAG RUN) 1 GM in IV 1 EA IV ONE (09:00)
--- NOTE | 2019-08-19 09:04 | IPNPDOC ---
Subjective Date Seen The patient was seen on 08/19/19. Subjective Chief Complaint/HPI Continues to c/o pain in jaw area - improving Eating and Drinking well - no further n/v Constitutional: Denies: Chills, Fever Pulmonary: Denies: Dyspnea, Cough Cardiovascular: Denies: Chest Pain, Palpitations Gastrointestinal: Denies: Nausea, Vomiting, Abdominal Pain, Diarrhea Genitourinary: Denies: Dysuria, Frequency Objective Physical Examination General Exam: Positive: Alert, No Acute Distress ENT Exam: Positive: Mucous membr. moist/pink, Other ENT (inspection of right posterior teeth and gumline do not show dental caries or inflammation. No visible abscess. Her posterior pharynx is slightly erythematous wihtout tonsilar swelling. no exudates. ) Neck Exam: Positive: Supple, Other (Tender right cervical chain adenopathy without palpable nodules or masses. ) Chest Exam: Positive: Clear to auscultation, Normal air movement Heart Exam: Positive: Rate Normal, Regular Rhythm, Normal S1, Normal S2 Abdomen Exam: Positive: Normal bowel sounds, Soft; Negative: Tenderness Extremity Exam: Negative: Edema Neuro Exam: Positive: Normal Speech Psych Exam: Positive: Mental status NL, Mood NL Assessment /Plan Problems (1) Hypokalemia Status: Resolved Problem Text: 08/19 - finally resolved Give further mag today 08/18 - K+ = 2.6 today - give further potassium. Mag has normalized 08/17 only up to 2.3 p 4 K runs and Mg to 1.7 p 1 gm; therefore, change K back to 40 tabs (refusing powder) TID and repeat K runs x 4, give another Mg 1 gm 08/17 - K+ dropped again = 2.1 today. Mag = 1.4. Give mag anay nd K runs. Continue HD K 20 BID c epifanio 100 BID (2) Parotitis Status: Chronic Problem Text: 08/19 - Sialogram cancelled by radiology - apparently we don't do those here improving slowly favor baseline KCS-chronic xerostomia autoimmune llamas pending, no obvious Stensen duct stone by CT, continue moist heat/massage/tart candy (3) Pain, dental Status: Acute Problem Text: 08/19 - see above - pain is from parotidiitis 08/17 - This is really the pts primary concern this morning, she has had a dental XR without concerning findings, Max-facial CT also unremarkable without abscess. She is convinced there is a dental issue and is requesting an oral surgeon evaluation. Imaging showed previous root canals but no obvious abnormalities to explain her pain. Oral exam is also fairly unremarkable. Very tender cervical lymph nodes without obvious mass or nodules, but will get CT neck. She was started on Clinda on admission, but no improvement in pain. . She is afebrile without leukocytosis. (4) Alcohol abuse with intoxication Status: Acute Problem Text: 08/17 - No signs of withdrawal currently CIWA protocol 08/16 0.31 (5) Hyponatremia Status: Acute Response to Treatment: Improving Problem Text: 08/17 - improving Pt with h/o alcoholic cirrhosis, presented to [facility] ED with intox with EtOH level of 0.3, she has been started on CIWA. Enc hydration, K is being replaced. Ca supplement as well. (6) Hypocalcemia Status: Acute Problem Text: See above (7) Alcoholic hepatitis Status: Acute Problem Text: On rifaximin, Nadolol// epifanio 100 BID held 2 poor po (8) Alcoholic cirrhosis of liver without ascites Status: Chronic Problem Text: See above. Plan/VTE VTE Prophylaxis Ordered?: Yes Disposition D/c home VS, I&O, 24H, Fishbone Vital Signs/I&O Vital Signs Date Time Temp Pulse Resp B/P (MAP) Pulse Ox O2 Delivery O2 Flow Rate FiO2 08/19/19 08:22 64 128/82 08/19/19 06:00 97.7 18 99 Room Air I&O- Last 24 Hours up to 6 AM 08/19/19 05:59 Intake Total 2330 ml Balance 2330 ml Laboratory Data 24H LABS Laboratory Tests 2 08/18/19 10:26: Hepatitis A IgM Antibody NEGATIVE, Hepatitis B Surface Antigen NEGATIVE, Hepatitis B Core IgM Antibody NEGATIVE, Hepatitis C Antibody Index 0.0 08/18/19 11:30: Bedside Glucose (Misc Panel) 208H 08/18/19 16:36: Bedside Glucose (Misc Panel) 110H 08/18/19 19:43: Bedside Glucose (Misc Panel) 228H 08/19/19 06:22: Anion Gap 6L, Glomerular Filtration Rate > 60.0, Calcium Level 8.6, Magnesium Level 1.7L, Total Bilirubin 2.4H, Aspartate Amino Transf (AST/SGOT) 226H, Alanine Aminotransferase (ALT/SGPT) 109H, Alkaline Phosphatase 192H, Total Protein 6.9, Albumin 3.6, Albumin/Globulin Ratio 1.09 CBC/BMP Laboratory Tests 08/18/19 13:53 08/19/19 06:22 SILVA JACKMAN PA-C Aug 19, 2019 09:04
[2019-08-19] MEDS ORDERED: ACAM0.05 PO (09:12)
[2019-08-19] MEDS ORDERED: FOLI1TAB11 PO (09:12)
[2019-08-19] MEDS ORDERED: TRAM50TA2 PO (09:41)
[2019-08-19] MEDS ORDERED: MAG400TA PO (09:41)
--- NOTE | 2019-08-19 15:41 | REP ---
Abdominal right upper quadrant ultrasound for elevated liver enzymes and total bilirubin: Comparison is 02/23/2018. There is no cholelithiasis, gallbladder wall thickening or pericholecystic fluid. There is no intrahepatic or extrahepatic biliary duct dilatation. The common biliary duct measures 2.7 mm in diameter. The hepatic parenchyma is heterogeneous with irregular borders. The umbilical vein is recanalized. These findings suggest cirrhosis and portal hypertension. The visualized areas of the pancreas are unremarkable. The right kidney measures 11.1 x 4.7 x 4.6 cm and is normal size. There is renal cortical thinning. There are no solid or cystic right renal masses. There is no calculus or hydronephrosis. No there is no ascites in the right upper quadrant. Impression: Coarsened hepatic echotexture and recanalized umbilical vein, compatible with cirrhosis and portal hypertension. There are no hepatic masses. There is no ascites. No biliary duct dilatation. Otherwise, negative abdominal right upper quadrant ultrasound. Electronically Signed by Marvin Greene MD 08/19/2019 03:33 P
--- NOTE | 2019-08-19 17:59 | DSES ---
DATE OF ADMISSION: 08/17/2019 DATE OF DISCHARGE: 08/19/2019 BRIEF HISTORY AND PHYSICAL: The patient is a 43-year-old alcoholic with a history of alcoholic liver cirrhosis and electrolyte abnormalities who presented with acute alcohol intoxication and lower mandibular tooth pain. She had been evaluated by her primary care provider, HUGO Anderson for her tooth pain and started on Augmentin for a possible tooth abscess but continued to have severe pain. PAST MEDICAL HISTORY: Significant for alcoholic liver cirrhosis with chronic electrolyte abnormalities including hypokalemia and hypomagnesemia, esophageal varices, hypertension, anxiety, gastroesophageal reflux disease. PERTINENT LABORATORY DATA ON ADMISSION: Sodium 128, potassium 2, BUN 21, creatinine 1.37, glucose 141, magnesium 1.7, total bilirubin 1.8, AST 139, ALT 79, alkaline phosphatase 178, albumin 3.6. Blood alcohol level was 0.307. White count 6, hemoglobin 13, platelets 368,000. HOSPITAL COURSE: 1. The patient was admitted for what was felt to be dental pain due to a possible abscess, initially started on IV clindamycin. She had a dental x-ray that showed that she has had previous root canals of the mandibular second and third molars on the right and maxillary third molar on the left. No apical view root lucencies were identified. No dental caries. The tooth roots of the maxillary incisors appeared truncated. However, that could have been imaging artifact. Maxillofacial CT was performed that showed no evidence of dental abscess. She went on to have a neck CT that was unremarkable with no acute findings. There appeared to be a heterotopic ossification within the soft tissues overlying the ventral margins of the mandible and maxilla, says to correlate with trauma history but there is no history of trauma acutely at least in this patient. Her pain was felt to be likely related to parotitis and treatment has included warm compresses, parotid massage, tart candies, and she has been getting Ultram for pain. She is unable to take nonsteroidal antiinflammatory drugs (NSAIDs) due to esophageal varices and reflux and unable to take acetaminophen due to her liver disease. Therefore, although Ultram is not ideal, this was the pain medication that has been used and will be continued for five more days' supply upon discharge. We did attempt to order a sialogram but apparently those are not done here in our facility and so the imaging study was cancelled. However, her maxillofacial CT was unremarkable and therefore, a stone seems unlikely. Autoimmune workup is pending in the laboratories and will need followup as an outpatient including antinuclear antibody (JARRETT) and saliva proteins. 2. Hypokalemia. She has required a significant amount of oral and IV potassium supplementation in order to get her potassium back to baseline. It is 3.6 at the time of discharge. She will go home on her usual potassium supplementation and restart her spironolactone. Her furosemide will be held due to the electrolyte abnormalities. 3. Hypomagnesemia. She has received magnesium runs in the hospital and now has started on oral magnesium. She got one more magnesium run prior to discharge on 08/19/2019 when her magnesium was 1.7 and she will be started on magnesium oxide 400 mg twice a day upon discharge as well. 4. Hyponatremia. This has resolved. 5. Alcoholic hepatitis. Liver enzymes were elevated through the hospitalization. Acute hepatitis panel was negative. She came in with alcohol intoxication and her liver enzymes, although they have gone up slightly, are pretty stable compared to arrival. She does not have any abdominal pain or further nausea and vomiting. Her bilirubin is elevated at 2.4, aspartate aminotransferase (AST) and alanine aminotransferase (ALT) have risen slightly as well. We may need to arrange for a liver ultrasound to assure there is no ductal dilatation prior to discharge. 6. Alcoholic cirrhosis without ascites. As above, we are restarting her spironolactone. Lasix will be held. DISPOSITION: We will send her home as long as her liver ultrasound is okay. When she does go home, she will be going home on consistent-carbohydrate diet, activity as tolerated. MEDICATIONS: - acamprosate 660 mg three times a day - folic acid 1 mg daily - magnesium oxide 400 mg twice a day - tramadol 50 mg every six hours as needed for pain, maximum daily dose of four, five-day, #20 pills - alprazolam 0.25 mg three times day for anxiety - bisacodyl 5 mg as directed for constipation - Vistaril 25 mg at bedtime - nadolol 20 mg daily - pantoprazole 40 mg daily - potassium chloride packets 20 mEq twice a day - rifaximin 550 mg twice a day - sertraline 25 mg daily - Januvia 25 mg daily - spironolactone 100 mg twice a day - furosemide is held DISCHARGE DIAGNOSES: 1. Jaw pain secondary to parotiditis. 2. Severe hypokalemia. 3. Hyponatremia. 4. Hypomagnesemia. 5. Alcohol abuse with intoxication. 6. Hypocalcemia. 7. Acute alcoholic hepatitis. 8. Alcoholic cirrhosis of the liver without ascites.
== END 2019-08-19 16:05 | disposition home or self-care (01) | DRG 115 ==
LOC: M ED 23:44 → EDBD 23:44 → M ED INP 23:45 → ENRESERV 08-16 07:40 → M MS4PR 08-16 08:28 → M MS5PR 08-17 15:33 → OBSVTOIN 08-17 16:48 → UNDODISIN 08-19 12:05
PROVIDERS: ADMIT General Practice; ATTEND Family Medicine
DX: K11.20 Sialoadenitis, unspecified (principal); N17.9 Acute kidney failure, unspecified; I85.00 Esophageal varices without bleeding; E87.8 Other disorders of electrolyte and fluid balance, not elsewhere classified; E87.1 Hypo-osmolality and hyponatremia; L97.819 Non-pressure chronic ulcer of other part of right lower leg with unspecified severity; E83.42 Hypomagnesemia; E83.51 Hypocalcemia; K70.30 Alcoholic cirrhosis of liver without ascites; K70.10 Alcoholic hepatitis without ascites; K11.7 Disturbances of salivary secretion; K08.89 Other specified disorders of teeth and supporting structures; F10.129 Alcohol abuse with intoxication, unspecified; E87.6 Hypokalemia; I10 Essential (primary) hypertension; F41.9 Anxiety disorder, unspecified; K21.9 Gastro-esophageal reflux disease without esophagitis; Z98.82 Breast implant status; Z79.899 Other long term (current) drug therapy; Z88.6 Allergy status to analgesic agent; Z88.8 Allergy status to other drugs, medicaments and biological substances

== ENCOUNTER → 2019-09-21 | Outpatient (REF) | payer BC ==
[~2019-09-21] MED LIST changes: +BISA5TAB13 PO; +MAG400TA PO; +PATIENT COMMENTS; +TRAM50TA2 PO; -diphenhydrAMINE INJ 50MG/ML VIAL (J1200) As Ordered ONE
[2019-09-22 11:39] LABS: ALBUMIN 3.5 GM/DL (3.2-5.2); ALT/SGPT 67 U/L (12-78); BILIRUBIN,TOTAL 0.9 MG/DL (0.2-1.0); BLOOD UREA NITROGEN 13 MG/DL (7-18); CARBON DIOXIDE LEVEL 27 MEQ/L (21-32); CHLORIDE LEVEL 108 MEQ/L (98-107); CREATININE FOR GFR 0.92 MG/DL (0.55-1.30); GLOMERULAR FILTRATION RATE > 60.0 (>58); GLUCOSE, FASTING 141 MG/DL (70-100); MAGNESIUM LEVEL 2.3 MG/DL (1.8-2.4); POTASSIUM SERUM 5.4 MEQ/L (3.5-5.1); SODIUM LEVEL 137 MEQ/L (136-145); TOTAL PROTEIN 7.1 GM/DL (6.4-8.2)
[2019-09-22 11:42] LABS: VITAMIN B12 LEVEL 523 PG/ML (247-911)
[2019-09-22 12:04] LABS: HEMOGLOBIN A1c 7.4 %
== END ==
LOC: M SFHCPLAZ 14:12
PROVIDERS: ATTEND Physician Assistant Medical
DX: E87.6 Hypokalemia (principal); E83.42 Hypomagnesemia; E11.9 Type 2 diabetes mellitus without complications; F10.10 Alcohol abuse, uncomplicated; R53.82 Chronic fatigue, unspecified

== ENCOUNTER 2019-10-30 11:36 | Emergency (ER) | payer BC ==
[~2019-10-30 11:36] MED LIST changes: +OXYC-1 PO; -OXYC15TA76 PO
[2019-10-30] MEDS ORDERED: methylPREDNISolone INJ 125 MG/2 ML VIAL (J2930) IV ONE (12:15)
[2019-10-30] MEDS ORDERED: METHOCARBAMOL 1,000 MG/10 ML VIAL (J2800) IV ONE (12:15)
[2019-10-30] MEDS ORDERED: LORA-674 (12:54)
[2019-10-30] MEDS ORDERED: HYDR1CAP25 (12:54)
[2019-10-30] MEDS ORDERED: MORPHINE 2 MG/ML 1ML VIAL (J2270) IV ONE (13:00)
[2019-10-30 13:11] LABS: APPEARANCE, URINE CLEAR (CLEAR); BACTERIA, URINE AUTO NEGATIVE (NEGATIVE); BILIRUBIN, URINE AUTO NEGATIVE (NEGATIVE); BLOOD, URINE BLOOD NEGATIVE (NEGATIVE); COLOR, URINE YELLOW (YELLOW); GLUCOSE, URINE (UA) AUTO 1+ mg/dL (NEGATIVE); KETONE, URINE AUTO 1+ mg/dL (NEGATIVE); LEUKOCYTE ESTERASE, URINE AUTO NEGATIVE (NEGATIVE); NITRITE, URINE AUTO NEGATIVE (NEGATIVE); PROTEIN, URINE AUTO NEGATIVE (NEGATIVE); RBC, URINE AUTO 1 /HPF (0-3); SPECIFIC GRAVITY URINE AUTO 1.013 (1.002-1.035); SQUAMOUS EPITHELIAL CELL UR AU 0 /HPF (0-6); UROBILINOGEN, URINE AUTO 0.2 mg/dL (0.0-2.0); WBC, URINE AUTO 2 /HPF (0-3)
[2019-10-30] MEDS ORDERED: ROBA750T4 PO (13:59)
[2019-10-30] MEDS ORDERED: PRED10TA2 PO (13:59)
--- NOTE | 2019-10-30 14:01 | REP ---
LUMBOSACRAL SPINE: REASON: Atraumatic pain. FINDINGS: Five views of the lumbosacral spine show no acute fracture, dislocation or subluxation. The intervertebral disc spaces are symmetric and well maintained. There is no spondylolysis or spondylolisthesis. The pedicles are intact bilaterally and there is no destructive osseous lesion. IMPRESSION: Unremarkable lumbosacral spine series. There is a T-shaped radiodensity in the pelvis, consistent with an IUD. Electronically Signed by Shad Malloy DO 10/30/2019 02:41 P
[2019-10-30 14:04] VITALS: BP 140/95
== END 2019-10-30 14:07 | disposition home or self-care (01) ==
LOC: M ED 11:36
DX: M54.5 Low back pain (principal); E11.9 Type 2 diabetes mellitus without complications; I10 Essential (primary) hypertension; G43.909 Migraine, unspecified, not intractable, without status migrainosus; F10.10 Alcohol abuse, uncomplicated; Z79.899 Other long term (current) drug therapy; Z79.84 Long term (current) use of oral hypoglycemic drugs; Z88.8 Allergy status to other drugs, medicaments and biological substances
CPT/HCPCS: 72110; 81001; 96374; 96375; 99284; J2270; J2800; J2930